=== PATIENT | male | born 1970 | race Caucasian/White ===

== ENCOUNTER 2023-07-29 08:12 | Outpatient (OUT) | payer OTHER, SELFPAY ==
[2023-07-29 09:55] LABS: Creatinine Urine Random 121.53 mg/dL (20.00-300.00); Microalbum Creatinine Ratio Ur 10.6 mg/g (0.0-29.9); Microalbumin Urine Random <1.3 mg/dL (<=30.0)
[2023-07-29 10:22] LABS: Albumin Level 4.1 g/dL (3.4-5.0); BUN Creatinine Ratio 16.8; Calcium 8.5 mg/dL (8.5-10.1); Chloride 102 mmol/L (98-107); Chol HDL Ratio 3.9; Cholesterol 187 mg/dL (<=200); Estimated GFR (African America >60 (>=60); Estimated GFR (Non-African Ame >60 (>=60); Glucose 126 mg/dL (74-106); HDL Cholesterol 48 mg/dL (40-60); Phosphorus 3.3 mg/dL (2.6-4.7); Sodium 137 mmol/L (136-145); Triglycerides 165 mg/dL (<=150)
== END 2023-07-29 08:13 | disposition home or self-care (01) ==
LOC: LAB 07-30 08:12
PROVIDERS: PCP Nurse Practitioner Family; Visit Provider Internal Medicine
DX: E11.65 Type 2 diabetes mellitus with hyperglycemia (principal); E66.9 Obesity, unspecified; I10 Essential (primary) hypertension
CPT/HCPCS: 36415; 80061; 80069; 82043; 82306; 82570

== ENCOUNTER 2025-01-11 17:52 | Emergency (ER) | payer OTHER, SELFPAY ==
--- OUTSIDE RECORDS SUMMARY | 2020-10-16 20:00 | XMS_ITS | Continuity of Care Document ---
Author Organization [facility] Address [address] [place] [address] [place] [address] Phone Care Team Providers Care Business Operations Specialist Name Role Phone Tash Mullen DO Unavailable Unavailable Procedures Procedure Date OBSERVATION CARE DISCHARGE INITIAL OBSERVATION CARE Advance Directives Directive Yes / No Effective Date File Name No Information Encounters Encounter Description Practice Location Reason(s) For Visit Diagnoses Date Provider Providers Copied on Encounter OBSERVATION CARE DISCHARGE [facility], [address] [place] [address], [id number], tel:[phone] [facility] OP No Information Sebas Dela Cruz . [address] [place], [place], [id number], [place]. tel:[phone] Referring Provider: Tash Mullen DO, [address] [place] [address], [id number]. tel:[phone] INITIAL OBSERVATION CARE [facility], [address] [place] [address], [id number], tel:[phone] [facility] OP No Information Eyal Douglass [address], [place], [id number], [place]. tel:[phone] Referring Provider: Chapincito Birch, [facility] [place], [address]. tel:[phone] Family History Family Member Type Diagnosis Age At Onset No Information Payers Payer name Insurance type Covered democrat ID Authoriza tion(s) [employer] Choice And Gold Choice 16 [id number] Medicaid [id number] Social History Type Description Quantity Date Captured Comments Sex Male Smoking Status No Information Chief Complaint And Reason For Visit No Information Reason For Referral Reason For Referral No Information History Of Present Illness Encounter Date Complaint History Of Prese nt Illness No Information Functional Status Date Functional Assessmen t No Information Instructions Date Instruction Additional Infor mation No Information Assessments Type Assessment Date No Information Patient Care Teams Name Effective Dates (start - stop) Status Members No Information
--- OUTSIDE RECORDS SUMMARY | 2024-12-26 06:04 | XMS_ITS ---
Author Organization [facility] in [place] Address [address] [place] [address] Care Team Providers Care Crucible Furnace Tender Name Role Phone Marsha Monahan Primary Care Provider REASON FOR VISIT yearly appointment Encounters Encounter Location Date Provider Diagnosis [facility] [address] [place] [address] 12/26/2024 Marsha Monahan Plan Of Treatment No Information Progress Notes * Chris HUSSEIN GDOB:1970 (54 yo M)Acc No.[id number]:12/26/2024 Patient: Justin ROJASChris :1970 A ge:54 Y S ex:Male Address:[address] [place] [address] * true * Date: Generated for Abril galeas/Jennifer/eTransmitting on: 0 01/11/2025 05:57 PM EDT
--- OUTSIDE RECORDS SUMMARY | 2024-12-28 05:30 | XMS_ITS ---
Author Organization [facility] in [place] Address [address] [place] [address] Care Team Providers Care Systems Analyst Name Role Phone Marsha Monahan Primary Care Provider Allergies No Known Allergies REASON FOR VISIT Presents to office alone for yearly check up Medications Medication SIG (Take, Route, Frequency, Duration) Notes Start Date End Date Status Lisinopril 10 MG 1 tablet Orally Once a day for 90 days 11/27/2022 Active Vitamin D3 50 MCG (1999) 1 tablet Ora lly Once a day for 90 days 12/22/2023 Not-Taking NexIUM 40 MG 1 capsule Orally Once a day for 90 days Active Sertraline HCl 50 MG TAKE 1 TABLET BY MOUTH EVERY DAY for 90 days Active hydroCHLOROthiazide 25 MG 1 tablet in morning Orally Once a day for 90 days Active Albendazole 200 MG 2 tablets Orally daily for 3 days 12/29/2024 Active Jardiance 10 MG 1 tablet Orally Once a day for 30 day(s) Active Social History Tobacco Use: Social History Observation Description Date Details (start date - stop date) Current Smoker NA - NA Tobacco Use/Smoking Question Answer Notes Patient is a nonsmoker Tobacco Control (Standard) Question Answer Notes Tobacco use: Current smoker How often do you smoke cigarettes? Every day AUDIT-C (Standard) Question Answer Notes Did you have a drink contain ing alcohol in the past year? Yes How often did you have six o r more drinks on one occasion in the past year? Less than monthly (1 point) How many drinks did you have on a typical day when you were drinking in the past year? 3 or 4 drinks (1 point) How often did you have a dri nk containing alcohol in the past year? 2 to 3 times a week (3 points) Points 5 Interpretation Positive Problems Problem Type SNOMED Code ICD Code Onset Dates Problem Status W/U Status Risk Notes Problem HTN (hypertens ion) (I10) Active confirmed Problem Gastroesophageal reflux disease (289753257) GERD (gastroeso phageal reflux disease) (K21.9) Active confirmed Vital Signs Blood pressure systolic 110 mm Hg 12/29/19 25 Blood pressure diastolic 70 mm Hg 025 Height 65 in 12/28/2024 Weight 194.4 lbs 12/28/2024 BMI 32.35 kg/m2 12/28/2024 Encounters Encounter Location Date Provider Diagnosis [facility] [address] [place] [address] 12/28/2024 Marsha Monahan Depression F32.A ; Wellness examination Z00.00 ; HTN (hypertension) I10 ; GERD (gastroesophageal reflux disease) K21.9 and Abdominal bloating R14.0 Assessments Encounter Date Diagnosis (ICD Code) Assessment Notes Treatment Notes Treatment Clinical Notes Section Notes 12/28/2024 Depression (ICD-10 - F32.A) increase medication dose discussed counseling discussed substance use adding to issue 12/28/2024 Wellness examination (ICD-10 - Z00.00) ROS done exam done refusing labs, cologuard at this time discussed substance use 12/28/2024 HTN (hypertension) (ICD-10 - I10) BP good, continue meds 12/28/2024 GERD (gastroesophagea l reflux disease) (ICD-10 - K21.9) work on diet 12/28/2024 Abdominal bloating (ICD-10 - R14.0) advised alcohol cessation work on diet requesting anti parasitic discussed GI referral Plan Of Treatment Medication Medication Name Sig Start Date Stop Date Notes Lisinopril 10 MG 1 tablet Orally Once a day for 90 days 11/27/2022 NexIUM 40 MG 1 capsule Orally Onc e a day for 90 days Sertraline HCl 50 MG TAKE 1 TABLET BY MO UT EVERY DAY for 90 days hydroCHLOROthiazide 25 MG 1 tablet in th e morning Orally Once a day for 90 days Albendazole 200 MG 2 tablets Orally zeb ly for 3 days 12/29/2024 Treatment Notes Assessment Notes Depression increase medication dose discussed counseling discussed substance use adding to issue Wellness examination ROS done exam done refusing labs, cologuard at this time discussed substance use HTN (hypertension) BP good, continue me ds GERD (gastroesophageal reflux disease) w ork on diet Abdominal bloating advised alcohol cessation work on diet requesting anti parasitic discussed GI referral Next Appt Details Follow Up: 1 Year,prn, Edenilson n: Progress Notes * Chris HUSSEIN GDOB:1970 (54 yo M)Acc No.[id number]:12/28/2024 Progress Note Patient: Chris SUTTON Provider: Bia Monahan ([facility]), SOLUTION ENGINEER :1970 A ge:54 Y S ex:Male Date:12/28/2024 Address:[address] [place] [address] [place], [id number] Check In:08:53 AM ESTCheck O ut:09:29 AM EST Subjective: * Chief Complaints: * 1 . Presents to office alone for yearly check up. * HPI: G eneral: worried about parasites bloating, fatigue weed and alcohol dont leave house talk to family was on opiates in past, first prescribed last A1C good. D epression Screening: PHQ-9 L ittle interest or pleasure in doing things?Nearly every day F eeling down, depressed, or hopeless S everal days T rouble falling or staying asleep, or sleeping too much S everal days F eeling tired or having little energy M ore than half the days P oor appetite or overeating S everal days F eeling bad about yourself or that you are a failure, or have let yourself or your family down S everal days T rouble concentrating on things, such as reading the newspaper or watching television N ot at all M oving or speaking so slowly that other people could have noticed; or the opposite, being so fidgety or restless that you have been moving around a lot more than usual N ot at all T houghts that you would be better off or of hurting yourself in some way N ot at all T otal Score 9 I nterpretation M ild Depression * ROS: G eneral/Constitutional: Chronic fatigue a dmits. D epression s ome , denies SI. F ever d enies. H eadache d enies. W eight loss d enies. ? O phthalmologic: Discharge d enies. E ye Pain d enies. I tching and redness d enies. E NT: Nasal discharge d enies. N prudence congestion d enies.?Sore throat d enies. C ardiovascular: Chest tightness/ heavy pressure d enies. R apid heart rate d enies. S welling of extremities d enies. C hest pain d enies. ? R espiratory: Productive cough d enies. C hest pain d enies. C ough d enies. S hortness of breath d enies. W heezing d enies. ? G astrointestinal: Bloating a dmits. A bdominal pain d enies. C onstipation d enies. D ecreased appetite d enies. D iarrhea d enies. N ausea d enies. V omiting d enies. G enitourinary: Urinary incontinence d enies. P ainful urination d enies. M usculoskeletal: Arthralgias/joint pain A dmits. B ack pain d enies. N farhana pain d enies. M uscle aches d enies. S kin: Rash d enies. S kin lesion(s) d enies. ? * Active Problem List M79.641 Pain in right hand Modified On:10/25/2022 Status:confirmed Z00.00 Wellness examination Modified On:10/25/2022U Status:confirmed Z86.19 H/O hepatitis Modified On:10/25/2022U Status:confirmed E66.3 Overweight Modified On:10/25/2022U Status:confirmed E11.9 Diabetes mellitus, t ype 2 Modified On:10/25/2022U Status:confirmed N50.9 Scrotal mass Modified On:10/25/2022U Status:confirmed R73.9 Hyperglycemia Modified On:10/25/2022U Status:confirmed G25.81 Restless leg syndrom e Modified On:10/25/2022U Status:confirmed M75.102 Left rotator cuff te ar Modified On:10/25/2022 Status:confirmed Z02.89 Medication managemen t contract agreement Modified On:10/25/2022 Status:confirmed B35.1 Tinea unguium Modified On:10/25/2022 Status:confirmed L02.92 Boils Modified On:10/25/2022 Status:confirmed Z90.89 Acquired absence of other organs Modified On:10/25/2022 Status:confirmed T14.90XA Injury, other and un specified, unspecified site Modified On:10/25/2022 Status:confirmed K21.9 Gastro-esophageal re flux disease Modified On:10/25/2022 Status:confirmed K92.1 Melanotic stools Modified On:10/25/2022 Status:confirmed K92.1 Blood in stool Modified On:10/25/2022 Status:confirmed K58.9 Irritable bowel synd jim (IBS) Modified On:10/25/2022 Status:confirmed E55.9 Vitamin D deficiency Modified On:07/30/2023 Status:confirmed F12.10 Marijuana abuse, con tinuous Modified On:12/22/2023 Status:confirmed F10.10 Alcohol abuse Modified On:12/22/2023 Status:confirmed I10 HTN (hypertension) Modified On:12/29/2024 Status:confirmed K21.9 GERD (gastroesophage al reflux disease) Modified On:12/29/2024 Status:confirmed * Medical History: P ain in right hand, Wellness examination, H/O hepatitis, Overweight, Diabetes mellitus, type 2, Scrotal mass, Hyperglycemia, Restless leg syndrome, Left rotator cuff tear, Medication management contract agreement, Tinea unguium, Boils, Acquired absence of other organs, Elevated blood pressure reading without diagnosis of hypertension, Injury, other and unspecified, unspecified site, Gastro-esophageal reflux disease, Melanotic stools, Blood in stool, Irritable bowel syndrome (IBS). * Surgical History: r t shoulder scope 12/12/22. * Family History: F ather: , diagnosed with Unspecified heart disease. M other: alive. mom- COPD. * Social History: T obacco Use: T obacco Control (Standard) T obacco use: C urrent smoker H ow often do you smoke cigarettes? E very day Tobacco Use/Smoking P atient is a n onsmoker D rug/Alcohol: A JHON-C (Standard) D id you have a drink containing alcohol in the past year? Y es H ow often did you have six or more drinks on one occasion in the past year? L ess than monthly (1 point) H ow many drinks did you have on a typical day when you were drinking in the past year? 3 or 4 drinks (1 point) H ow often did you have a drink containing alcohol in the past year? 2 to 3 times a week (3 points) P oints 5 I nterpretation P ositive * Medications: T aking hydroCHLOROthiazide 25 MG Tablet 1 tablet in the morning Orally Once a day , Taking Jardiance(Empagliflozin) 10 MG Tablet 1 tablet Orally Once a day , Taking Lisinopril 10 MG Tablet 1 tablet Orally Once a day , Taking NexIUM(Esomeprazole Magnesium) 40 MG Capsule Delayed Release 1 capsule Orally Once a day , Taking Sertraline HCl 25 MG Tablet TAKE 1 TABLET BY MOUTH EVERY DAY , Not-Taking/PRN Vitamin D3 50 MCG (1999 UT) Tablet 1 tablet Orally Once a day , Medication List reviewed and reconciled with the patient * Allergies: N .K.D.A. Objective: * Vitals: W t:194.4lbs, Ht: 65 in, BP:110/70mm Hg, BMI:32.35Index, Ht-cm: 165.1 cm, Wt-k.18 kg. * Examination: G eneral Examinations: GENERAL APPEARANCE: a lert and oriented, in no acute distress, obese. EYES: c onjunctiva normal, sclera non-icteric. NOSE: n ormal external appearance. LUNGS: c lear to auscultation bilaterally. CARDIO: r egular rate and rhythm, S1, S2 normal, no murmurs, no edema. ABDOMEN: s oft, nontender. MUSCULOSKELETAL: G ait and station normal. SKIN: w arm and dry. Assessment: * Assessment: 1. W ellness examination - Z00.00 (Primary) 2 . D epression - F32.A ? 3 . H TN (hypertension) - I10 4 . G ERD (gastroesophageal reflux disease) - K21.9 5 . A bdominal bloating - R14.0 Plan: * Treatment: 2. D epression Refill Sertraline HCl Tablet, 50 MG, TAKE 1 TABLET BY MOUTH EVERY DAY, 90 days, 90 Tablet, Refills 3. Notes: increase medication dose discussed counseling discussed substance use adding to issue 3. H TN (hypertension) Refill hydroCHLOROthiazide Tablet, 25 MG, 1 tablet in the morning, Orally, Once a day, 90 days, 90 Tablet, Refills 3; R efill Lisinopril Tablet, 10 MG, 1 tablet, Orally, Once a day, 90 days, 90 Tablet, Refills 3. Notes: BP good, continue meds 4. G ERD (gastroesophageal reflux disease) Refill NexIUM Capsule Delayed Release, 40 MG, 1 capsule, Orally, Once a day, 90 days, 90 Capsule, Refills 3. Notes: work on diet 5. A bdominal bloating Start Albendazole Tablet, 200 MG, 2 tablets, Orally, daily, 3 days, 6 Tablet, Refills 0. Notes: advised alcohol cessation work on diet requesting anti parasitic discussed GI referral * Preventive Medicine: Screenings/Counseling: B UT ACTION PLAN Above Normal BMI Follow-up D ietary management education, guidance, and counseling See treatment section of progress note for complete details of management plan. T OBACCO ACTION PLAN Patient counselled on the dangers of tobacco use and urged to quit. . * Follow Up: 1 Year,prn * * Electronically signed by Laurence Monahan NP, INFORMATICA MDM [email or web address].[email or web address] [id number] on 12/30/2024 at 08:33 AM EDT Sign off status: Completed Visit Status: C HK (Check Out) true * Provider: Bia Monahan ([facility]), SOLUTION ENGINEER Date: 0 12/28/2024 Generated for Abril galeas/Jennifer/Radha on: 01/11/2025 05:57 PM EDT History and Physical Notes * HPI (History of Present Illness) Category Sub-Category Detail Notes Category Not es Depression Screening PHQ-9 Little inte rest or pleasure in doing things: Nearly every day Feeling down, depressed, or hopeless: Se veral days Trouble falling or staying asleep, or sl eeping too much: Several days Feeling tired or having little energy: M ore than half the days Poor appetite or overeating: Several day s Feeling bad about yourself o r that you are a failure, or have let yourself or your family down: Several days Trouble concentrating on thi ngs, such as reading the newspaper or watching television: Not at all Moving or speaking so slowly that other people could have noticed; or the opposite, being so fidgety or restless that you have been moving around a lot more than usual: Not at all Thoughts that you would be b kyle off or of hurting yourself in some way: Not at all Total Score: 9 Interpretation: Mild Depression General worried about parasites bloating, fatigue weed and alcohol dont leave house talk to family was on opiates in past, first prescribed last A1C good Examination Category Sub-Category Detail Notes Category Not es General Examinations GENERAL APPEARANCE: alert a nd oriented, in no acute distress, obese EYES: conjunctiva normal, sclera non-icteric EARS: NOSE: normal external appe arance THROAT: CARDIO: regular rate and rhy thm, S1, S2 normal, no murmurs, no edema LUNGS: clear to auscultatio n bilaterally ABDOMEN: soft, nontender SKIN: warm and dry BACK: MUSCULOSKELETAL: Gait and station nor mal LYMPH NODES:
--- OUTSIDE RECORDS SUMMARY | 2025-01-10 09:21 | XMS_ITS ---
Author Organization [facility] in [place] Address [address] [place] [address] Care Team Providers Care [facility] Representative Name Role Phone Marsha Monahan Primary Care Provider REASON FOR VISIT BP Medications Encounters Encounter Location Date Provider Diagnosis [facility] [address] [place] [address] 01/10/2025 Marsha Monahan Plan Of Treatment No Information Progress Notes * Chris HUSSEIN GDOB:1970 (54 yo M)Acc No.[id number]:01/10/2025 Patient: Justin ROJASChris :1970 A ge:54 Y S ex:Male Address:[address] [place] [id number] * true * Date: Generated for Abril galeas/Jennifer/eTransmitting on: 0 01/11/2025 05:58 PM EDT
[2025-01-11] VITALS (26 sets, daily range): BP systolic 108–122; BP diastolic 79–93; PULSE 65–118; TEMP 36.4; O2SAT 96–100; BMI 31.1
--- OUTSIDE RECORDS SUMMARY | 2025-01-11 17:57 | XMS_ITS | Encounter Summary ---
Author Organization [facility] Address [address] [place] [address] Care Team Providers Care Commercial Lines Insurance Agent Name Role Phone Marsha Monahan MD Unavailable [phone] Nathaniel Allen MD Primary Care Provider [phone] Encounter Details Date Type Department Care Team (Late st Contact Info) Description 12/26/2022 Abstract [facility] [address] [facility] [address] [place] [address] Daniel Wheeler PA [address] [facility] [address] [place] [address] Social History Tobacco Use Types Packs/Day Years Used Date Smoking Tobacco: Never Tobacco Cessation:Counseling Given: Not Answered Alcohol Use Standard Drinks/Week Comments Not Asked 0 (1 standard drink = 0.6 oz pure alcohol) caffeine intake: 3-4 cups per day. Sex and Gender Information Value Date Recorded Sex Assigned at Not on file Legal Sex Male 6:59 PM EDT Gender Identity Not on file Sexual Orientation Not on file documented as of this encounter Plan of Treatment Upcoming Encounters Date Type Department Care Team (Late st Contact Info) Description 03/01/2025 9:00 AM EDT Office Visit [facility] [address] [place] [address] Constantino Dhaliwal MD [address] [place] [address] documented as of this encounter Visit Diagnoses Not on filedocumented in this encounter Care Teams Commercial Lines Insurance Agent Relationship Specialty Start Date End Date Nathaniel Allen MD [address] [place] [address] PCP - General Family Medicine 12/26/22 Marsha Monahan MD [address] [place] [address] Referring Physician Family Medicine 12/26/22 documented as of this encounter
--- OUTSIDE RECORDS SUMMARY | 2025-01-11 17:57 | XMS_ITS | Clinical Summary ---
Author Organization [facility] Address [address] [place] [address] Care Team Providers Care Civil Engineer'S Aide Name Role Phone Unavailable Primary Care Provider Unavailabl e Allergies No known active allergies Medications oxyCODONE 30 mg tab ER 12hr Take 30 mg by mouth. Active gabapentin (NEURONTIN) 800 mg tablet Take 800 mg by mouth three times daily. Active baclofen (LIORESAL) 10 mg tablet Take 10 mg by mouth four times daily. Active doxepin capsule 75 mg Take 75 mg by mouth daily at bedtime. Active esomeprazole (NEXIUM) 40 mg capsule Take 40 mg by mouth twice daily before meals. Active rOPINIRole (REQUIP) 2 mg tablet Take 2 mg by mouth daily at bedtime. Active topiramate (TOPAMAX) 50 mg tablet Take 50 mg by mouth three times daily. Active Social History Tobacco Use Types Packs/Day Years Used Date Smoking Tobacco: Never Smokeless Tobacco: Never Area Deprivation Index Answer Date Perfecto rded National Score (1-100), lower number is lower ri sk Not on file 06/26/2020 State Score (1-10), lower number is lower risk N ot on file 06/26/2020 Data from: https://www.neighborhoodatlas.medicine.[facility].edu/. Last address used for calculation Not on file 06/26/2020 Sex and Gender Information Value Date Recorded Sex Assigned at Not on file Legal Sex Male 9:48 AM EDT Gender Identity Not on file Sexual Orientation Not on file Last Filed Vital Signs Vital Sign Reading Time Taken Comments Blood Pressure 137/105 06/22/2019 11:15 AM EST Pulse 108 06/22/2019 11:15 AM EST Temperature 36.8 C (98.2 F) 05/06/2019 8:08 AM EDT Respiratory Rate - - Oxygen Saturation 97% 05/06/2019 8:08 AM EDT Inhaled Oxygen Concentration - - Weight 104.3 kg (230 lb) 06/22/2019 11:15 AM EST Height 165.1 cm (5' 5 ) 06/22/2019 11:15 AM EST Body Mass Index 38.27 06/22/2019 11:15 AM EST Plan of Treatment Health Maintenance Due Date Last Done Comments Anxiety Screening 1986 Depression Screening 1986 HIV Screening 1986 Hepatitis C Screening 1986 DTaP,Tdap,Td Vaccine (1 - Tdap) 12/20/1987 Hepatitis B Vaccine (1 of 3 - 19+ 3-dose series) 12/19 Lipid Screening 12/20/2003 CT Colonography 2013 Cologuard (FIT-DNA) 2013 Colonoscopy 2013 Colorectal Cancer Screening 2013 Diabetes Screening 2013 Fecal Occult Blood 2013 Prostate Cancer Screening Discussion 2013 Sigmoidoscopy 2013 Pneumococcal Vaccine: 50+ (1 of 1 - PCV) 2018 Shingrix Vaccine (1 of 2) 2018 Covid-19 Vaccine ( - 2023- season) 2024 Influenza Vaccine (Season Ended) [address] [place] [address] MEDICARE
--- OUTSIDE RECORDS SUMMARY | 2025-01-11 17:57 | XMS_ITS | Patient Health Record ---
Author Organization Telehealth Visit Address [address] [place] [phone] Care Team Providers Care Internal Grinder Set Up Operator Name Role Phone RON IVORY Primary Care Provider Luda Huizar Unavailable [phone] Reason For Referral No Information Medications Medication SIG (Take, Route, Frequency, Duration) Notes Start Date End Date Status Sertraline HCl Activ e Pantoprazole Sodium 40 MG 1 tablet on em pty stomach, 30 minutes before a meal Orally twice a day for 30 days Active Losartan Potassium A ctive Social History Tobacco Use: Social History Observation Description Date Details (start date - stop date) Never Smoker NA - NA Alcohol Screen Question Answer Notes Did you have a drink contain ing alcohol in the past year? Yes How often did you have a dri nk containing alcohol in the past year? Monthly or less (1 point) How many drinks did you have on a typical day when you were drinking in the past year? 1 or 2 drinks (0 point) How often did you have 6 or more drinks on one occasion in the past year? Never (0 point) Points 1 Interpretation Negative Smoking Question Answer Notes Status nonsmoker Additional Findings: Tobacco Non-User Current no n-smoker Section Notes: single Problems Problem Type SNOMED Code ICD Code Onset Dates Problem Status W/U Status Risk Notes Problem Gastric polyps (K31.7) Active confirmed Problem 76734014 Diarrhea, unspecified type (R19.7) Active confirmed Problem 80423528 Non-intractable vomiting with nausea, unspecified vomiting type (R11.2) Active confirmed Plan Of Treatment Pending Test Test Name Order Date Gastric Emptying Study Solid 12/05/2020 Insurance Providers Payer Name Payer Address Payer Phone Subscriber Number Group Number Insured Name Patient Relationship to Insured Coverage Start Date Coverage End Date [employer] Medicare PPO [address] [address] MARYJANE Son [phone] [id number] Chris Hussein Self - patient is the insured Medical (General) History Medical History History ICD Code acid reflux hypertension anxiety depression Surgical History Surgery Date(Month/Year) colonoscopy cholecystectomy skin graph
--- OUTSIDE RECORDS SUMMARY | 2025-01-11 17:57 | XMS_ITS | Patient Health Record ---
Author Organization [facility] [place] Address [address] [place] [address] Care Team Providers Care Plumbing Manager Name Role Phone Marsha Monahan Primary Care Provider Allergies No Known Allergies Reason For Referral No Information Medications Medication [...] Question Answer Notes Patient is a nonsmoker Alcohol Screen (Audit-C) Question Answer Notes Did you have a drink contain ing alcohol in the past year? Yes How often did you have 6 or more drinks on one occasion in the past year? Monthly or less (1 point) How many drinks did you have on a typical day when you were drinking in the past year? 1 or 2 drinks (0 point) How often did you have a dri nk containing alcohol in the past year? 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) Active confirmed Problem Gastroesophageal reflux disease (655101961) GERD (gastroesophagea l reflux disease) (K21.9) Active confirmed Problem Hypertension (36431047) HTN (hypertension) (I10) Active confirmed Problem Restless legs syndrome (36555371) Restless leg syndrome (G25.81) Active confirmed Problem Hyperglycemia (15455912) Hyperglycemia (R73.9) Active confirmed Problem Vitamin D deficiency (80554803) Vitamin D deficiency (E55.9) Active confirmed Problem Alcohol abuse (10525901) Alcohol abuse (F10.10) Active confirmed Problem Tinea unguium (301480742) Tinea unguium (B35.1) Active confirmed Problem Blood in stool (229684385) Blood in stool (K92.1) Active confirmed Problem 676805206 Boils (L02.92) Active confirmed Problem Tear of left rotator cuff (27012155414187815) Left rotator cuff tear (M75.102) Active confirmed Problem Scrotal mass (79554665) Scrotal mass (N50.9) Active confirmed Problem Annual wellness visit (332808679393901) Wellness examination (Z00.00) Active confirmed Problem Gastro-esophageal reflux disease (779741076) Gastro-esophagea l reflux disease (K21.9) Active confirmed Problem Hematochezia (372353338) Melanotic stools (K92.1) Active confirmed Problem History of infectious disease (509624426) H/O hepatitis (Z86.19) Active confirmed Problem Irritable bowel syndrome (50842081) Irritable bowel syndrome (IBS) (K58.9) Active confirmed Problem Diabetes mellitus type 2 (64388271) Diabetes mellitus, type 2 (E11.9) Active confirmed Problem Cannabis abuse (99193234) Marijuana abuse, continuous (F12.10) Active confirmed Problem Medication management contract agreement (Z02.89) Active confirmed Problem 495061479 Injury, other and unspecified, unspecified site (T14.90XA) Active confirmed Vital Signs Blood pressure diastolic 70 mm Hg 12/28/2024 Height 65 in 12/28/2024 Blood pressure systolic 110 mm Hg 12/28/2024 Weight 194.4 lbs 12/28/2024 BMI 32.35 kg/m2 12/28/2024 Encounters Encounter Location Date Provider Diagnosis [address] [address] 10/03/2024 Marsha Monahan [address] [address] 12/26/2024 Marsha Monahan [address] [address] 01/10/2025 Marsha Monahan [address] [address] 12/28/2024 Marsha Monahan Depression F32.A ; Wellness [...] parasitic discussed GI referral Plan Of Treatment Pending Test Test Name Order Date MRI SHOULDER RT WO CON 10/27/2022 Insurance Providers Payer Name Payer Address Payer Phone Subscriber Number Group Number Insured Name Patient Relationship to Insured Coverage Start Date Coverage End Date [employer] [address] LUDY [place]OM[place] [phone] [id number] Chris Hussein Self - patient is the insured Medical (General) History Medical History History ICD Code Pain in right hand M79.641 Wellness examination Z00.00 H/O hepatitis Z86.19 Overweight E66.3 Diabetes mellitus, type 2 E11.9 Scrotal mass N50.9 Hyperglycemia R73.9 Restless leg syndrome G25.81 Left rotator cuff tear M75.102 Medication management contract agreement Z02.89 Tinea unguium B35.1 Boils L02.92 Acquired absence of other organs Z90.89 Elevated blood pressure reading without diagnosis of hypertension R03.0 Injury, other and unspecified, unspecifi ed site T14.90XA Gastro-esophageal reflux disease K21.9 Melanotic stools K92.1 Blood in stool K92.1 Irritable bowel syndrome (IBS) K58.9 Surgical History Surgery Date(Month/Year) rt shoulder scope 12/12/22
--- OUTSIDE RECORDS SUMMARY | 2025-01-11 17:57 | XMS_ITS | Clinical Summary ---
Author Organization [facility] Healthcare Address [address] [place] [address] Care Team Providers Care Groundskeeping Maintenance Worker Name Role Phone Marsha Monahan MD Unavailable [phone] Nathaniel Allen MD Primary Care Provider [phone] Allergies No known active allergies Medications Cannabinoids (medical cannabis) Medical Marijuana Edibles Active diclofenac (Voltaren) 75 MG EC tablet Oral for 30 Days Active sertraline (Zoloft) 50 MG tablet 1 (one) time each day at the same time. Active omeprazole (PriLOSEC) [address] capsule 1 capsule 1 (one) time each day at the same time. Active cholecalciferol (Vitamin D-3) 50 MCG (1999) tablet Take 1 tablet by mouth Daily 4 Active esomeprazole (NexIUM) [address] capsule Take 40 mg by mouth 1 (one) time each day at the same time Active losartan-hydroCHL OROthiazide (Hyzaar) 100-25 MG tablet Take 1 tablet by mouth Daily Active metFORMIN (Glucophage) 500 MG tabletIndications :Type 2 diabetes mellitus with hyperglycemia, without long-term current use of insulin (HCC) Take 1 tablet (500 mg) by mouth in the morning and 1 tablet (500 mg) in the evening. Take with meals. 180 tablet 1 5 02/27/20 25 Active empagliflozin (Jardiance) 10 MGIndications:Typ e 2 diabetes mellitus with hyperglycemia, without long-term current use of insulin (HCC) Take 1 tablet (10 mg) by mouth Daily 90 tablet 1 5 02/27/20 25 Active hydroCHLOROthiazi de (HYDRODiuril) 25 MG tabletIndications :Essential (primary) hypertension TAKE 1 TABLET BY MOUTH EVERY DAY IN THE MORNING 90 tablet 1 5 Active losartan (Cozaar) 100 MG tabletIndications :Essential (primary) hypertension TAKE 1 TABLET BY MOUTH EVERY DAY 90 tablet 1 5 Active Active Problems Problem Noted Date Diagnosed Date Essential (primary) hypertension 07/05/2024 Type 2 diabetes mellitus with hyperglycemia 06/19 Vitamin D deficiency, unspecified 07/05/2024 Right anterior shoulder pain 12/30/2022 History of arthroscopy of right shoulder 023 Internal derangement of right shoulder 3 Encounters Date Type Department Care Team Description 10/13/2024 Refill [facility] [address] [place] [address] Constantino Dhaliwal MD Essential (primary) hypertension from Last 3 Months Family History Medical History Relation Name Comments Heart disease Father Hypertension Mother Diabetes Paternal Grandmother Relation Name Status Comments Father Mother Alive Paternal Grandmother Social History Tobacco Use Types Packs/Day Years Used Date Smoking Tobacco: Never Tobacco Cessation:Counseling Given: Not Answered Alcohol Use Standard Drinks/Week Comments Never 0 (1 standard drink = 0.6 oz pure alcohol) caffeine intake: 3-4 cups per day. Sex and Gender Information Value Date Recorded Sex Assigned at Not on file Legal Sex Male 6:59 PM EDT Gender Identity Not on file Sexual Orientation Not on file Last Filed Vital Signs Vital Sign Reading Time Taken Comments Blood Pressure 120/88 08/30/2024 9:09 AM EST Pulse 80 08/30/2024 9:09 AM EST Temperature - - Respiratory Rate 18 08/30/2024 9:09 AM EST Oxygen Saturation 95% 08/30/2024 9:09 AM EST Inhaled Oxygen Concentration - - Weight 91.2 kg (201 lb) 08/30/2024 9:09 AM EST Height 163.8 cm (5' 4.5 ) 08/30/2024 9:09 AM EST Body Mass Index 33.97 08/30/2024 9:09 AM EST Plan of Treatment Upcoming Encounters Date Type Department Care Team (Late st Contact Info) Description 03/01/2025 9:00 AM EDT Office Visit [facility] [address] [place] [address] Constantino Dhaliwal MD [address] [place] [address] Insurance [employer] Care Teams Groundskeeping Maintenance Worker Relationship Specialty Start Date End Date Nathaniel Allen MD [address] [place] [address] [phone] PCP - General Family Medicine 12/26/22 Marsha Monahan MD [address] [place] [address] [phone] Referring Physician Family Medicine 12/26/22
--- OUTSIDE RECORDS SUMMARY | 2025-01-11 17:57 | XMS_ITS | Encounter Summary ---
Author Organization [facility] Address [address] [place] [address] Care Team Providers Care Stranding Supervisor Name Role Phone Marsha Monahan MD Unavailable [phone] Nathaniel Allen MD Primary Care Provider [phone] Encounter Details Date Type Department Care Team (Late st Contact Info) Description 12/30/2022 Abstract [facility] [address] [place] [phone] Andi Florez, PT [address] [place] [address] Social History Tobacco Use Types Packs/Day Years [...] AM EDT Office Visit [facility] [address] [place] [phone] Constantino Dhaliwal MD [address] [place] [address] documented as of this encounter Visit Diagnoses Not on filedocumented in this encounter Care Teams Stranding Supervisor Relationship Specialty Start Date End Date Nathaniel Allne MD [address] [place] [address] PCP - General Family Medicine 12/26/22 Marsha Monahan MD [address] [place] [address] Referring Physician Family Medicine 12/26/22 documented as of this encounter
--- OUTSIDE RECORDS SUMMARY | 2025-01-11 17:57 | XMS_ITS | Encounter Summary ---
Author Organization [facility] Address [address] [place] [address] Care Team Providers Care Converter Skimmer Name Role Phone Marsha Monahan MD Unavailable [phone] Nathaniel Allen MD Primary Care Provider [phone] Encounter Details Date Type Department Care Team (Late st Contact Info) Description 02/27/2023 Abstract [facility] [address] [facility] [address] [place] [address] Daniel Wheeler PA [address] [facility] [address] [place] [address] Social History Tobacco Use Types Packs/Day Years Used Date Smoking Tobacco: Never Alcohol Use Standard Drinks/Week Comments Never 0 [...] Visit [facility] [address] [place] [address] Constantino Dhaliwal MD [address] [place] [address] documented as of this encounter Visit Diagnoses Not on filedocumented in this encounter Care Teams Converter Skimmer Relationship Specialty [place] [address] [place] [phone] PCP - General Family Medicine 12/26/22 Marsha Monahan MD [address] [place] [address] Referring Physician Family Medicine 12/26/22 documented as of this encounter
--- OUTSIDE RECORDS SUMMARY | 2025-01-11 17:58 | XMS_ITS | Encounter Summary ---
Author Organization [facility] Address [address] [place] [address] Care Team Providers Care Compliance Testing Analyst Name Role Phone Marsha Monahan MD Unavailable [phone] Nathaniel Allen MD Primary Care Provider [phone] Encounter Details Date Type Department Care Team (Late st Contact Info) Description 04/06/2023 Abstract [facility] [address] [facility] [address] [place] [address] Daniel Wheeler PA [address] [facility] [address] [place] [address] Social History Tobacco Use Types Packs/Day Years [...] Visit [facility] [address] [place] [address] Constantino Dhaliwal MD [address] [place] [address] documented as of this encounter Visit Diagnoses Not on filedocumented in this encounter Care Teams Compliance Testing Analyst Relationship Specialty [place] [address] [place] [phone] PCP - General Family Medicine 12/26/22 Marsha Monahan MD [address] [place] [address] Referring Physician Family Medicine 12/26/22 documented as of this encounter
--- NOTE | 2025-01-11 18:06 | ECG_ITS ---
[facility] Test Date: 2025-01-11 Pat Name: LEO PADILLA Department: Room: - Gender: Male Chief Technical Officer: : 1970 Requested By: 0923 Order Number: [id number] Reading MD: MICHEL ALEJO M.D. Measurements Intervals Lovely Rate: 91 P: 46 NJ: 164 QRS: 42 QRSD: 80 T: 57 QT: 354 QTc: 403 Interpretive Statements 1100 Sinus rhythm 9110 normal ECG Compared to ECG 08/31/2020 10:42:22 No significant changes Electronically Signed On 01-11-2025 20:03:19 EDT by MICHEL ALEJO M.D.
--- NOTE | 2025-01-11 18:06 | ED_ITS ---
HPI HPI - General Adult General Chief complaint: Shortness of Breath/Dyspnea Stated complaint: Shortness of Breath Time Seen by Provider: 01/11/25 18:02 Source: patient Mode of arrival: walk-in History of Present Illness HPI narrative: 54-year-old male presents here with a chief complaint of shortness of breath. Patient states he laid down to take a nap and woke up short of breath. He states it happens to him when he gets overheated. He did have a change in his medications yesterday by his primary care physician and his blood pressure medications were changed. He is uncertain of the medications or how to take them. He states he was told to take 1 or 2 what he felt like taking but did not understand the instructions. Patient does appear as if he is hyperventilating but when distracted he is able to speak full sentences his vital signs are stable he is not currently tachycardic or febrile. Related Data Home Medications ?Medication ?Instructions ?Recorded ?Confirmed empagliflozin 10 mg tablet 10 mg PO DAILY 01/11/25 (Jardiance) esomeprazole magnesium 40 mg 40 mg PO DAILY 01/11/25 0 01/11/25 capsule,delayed release hydrochlorothiazide 25 mg tablet 25 mg PO DAILY 01/11/25 lisinopril 10 mg tablet 10 mg PO DAILY 01/11/2512/19 losartan 100 mg tablet 100 mg PO DAILY 01/11/25 metformin 500 mg tablet 500 mg PO BID 01/11/2501/11 sertraline 50 mg tablet 50 mg PO DAILY 01/11/2512/19 Allergies Allergy/AdvReac Type Severity Reaction Status Date / Time No Known Drug Allergies Allergy Verified 01/11/25 17:58 Review of Systems ROS Status of ROS 10 or more systems reviewed and unremark able except as noted in history and below [facility] Medical History (Updated 01/11/25 @ 20:57 by Oneyda Nagel) Depression ?F32.A - Depression, unspecified (ICD-10) HTN (hypertension) ?I10 - Essential (primary) hypertension (ICD-10) Diabetes ?E11.9 - Type 2 diabetes mellitus without complications (ICD-10) Electrocution and nonfatal effects of electric current ?T75.4XXA - Electrocution, initial encounter (ICD-10) Social History Little interest or pleasure in doing things: not at all Feeling down, depressed, or hopeless: not at all Exam Narrative Exam Narrative: All Systems are negative except as noted/marked.All systems reviewed and otherwise negative Nurses note and vital signs reviewed and patient is not hypoxic. General: The patient appears mildy anxious Patient is resting comfortably on cart. Skin: Warm, dry, no pallor noted. There is no rash noted. Head: Normocephalic, atraumatic Eye: Normal conjunctiva, no drainage, EOMI. PERRL Ears, Nose, Mouth, and Throat: oral mucosa is moist. Nares patent. Mouth without vesicles. Ear canals patent. Tm's without Erythema Cardiovascular: Regular Rate and Rhythm Respiratory: hyperventilating but able to be distracted and speak full sentences no accessory muscle use, lungs are clear to auscultation, no wheezing, rales or rhonchi Back: non-tender, no CVA tenderness bilaterally to percussion. GI: Normal bowel sounds, no tenderness to palpation, no masses appreciated. No rebound, guarding, or rigidity noted. Musculoskeletal: The patient has no evidence of calf tenderness, no pitting edema, symmetrical pulses noted bilaterally Neurological: A&O x4, normal speech Psychiatric: Cooperative Constitutional Vital Signs, click to edit/add: Last Vital Signs Temp 97.6 F 01/11/25 17:58 Pulse 99 H 01/11/25 19:30 Resp 20 01/11/25 19:30 BP 122/81 01/11/25 19:09 Pulse Ox 100 01/11/25 19:30 O2 Del Method Room Air 01/11/25 17:58 Course Vital Signs Vital signs: Vital Signs Temperature 97.6 F 01/11/25 17:58 Pulse Rate 90 01/11/25 17:58 Respiratory Rate 01/11/25 17:58 Blood Pressure 114/93 H 01/11/25 17:58 Pulse Oximetry 96 01/11/25 17:58 Oxygen Delivery Method Room Air 01/11/25 17:58 Temperature 97.6 F 01/11/25 17:58 Pulse Rate 99 H 01/11/25 19:30 Respiratory Rate 20 01/11/25 19:30 Blood Pressure 122/81 01/11/25 19:09 Pulse Oximetry 100 01/11/25 19:30 Oxygen Delivery Method Room Air 01/11/25 17:58 Medical Decision Making MDM Narrative Medical decision making narrative: 54-year-old male presents here with a chief complaint of shortness of breath. Patient states he laid down to take a nap and woke up short of breath. He states it happens to him when he gets overheated. He did have a change in his medications yesterday by his primary care physician and his blood pressure medications were changed. He is uncertain of the medications or how to take them. He states he was told to take 1 or 2 what he felt like taking but did not understand the instructions. Patient does appear as if he is hyperventilating but when distracted he is able to speak full sentences his vital signs are stable he is not currently tachycardic or febrile. Upon arrival to the emergency room IV was established EKG was performed blood work was drawn. Lab work including BC been viewed. Patient does have a elevated BUN and creatinine. He has been given a liter of fluids here. Patient advised he needs to follow-up with primary care physician for his clarification of his new blood pressure medications. He tells me there are 2 doctors giving him blood pressure meds. I told him he needs to have 1 physician caring for the blood pressure only. Patient was hypervenilating upon arriva. He is currently acting and talking fine here. He was given Vistaril and Valium was currently out of Ativan and Xanax. Did explain to the patient that his kidneys BUN and creatinine were elevated and that is why we gave him fluids. He has to follow- up with his primary care physician as discussed. Differential Diagnosis Differential Diagnosis: short of breath, anxiety Medical Records Medical records reviewed: Yes I reviewed the patient's medical records Lab Data Lab results reviewed: Yes I reviewed the patient's lab results Labs: Lab Results 01/11/25 01/11/25 01/11/25 Range/Units 18:26 19:11 19:31 WBC 12.2 H (4.0-11.0) 10^3/uL RBC 5.42 (4.70-6.10) 10^6/uL Hgb 18.1 H (14.0-18.0) g/dL Hct 49.2 (42.0-54.0) % MCV 90.8 (80.0-94.0) fL MCH 33.4 (25.9-34.0) pg MCHC 36.8 H (29.9-35.2) g/dL RDW 12.1 (11.0-15.0) % Plt Count 281 (150-450) 10^3/uL MPV 8.9 L (9.5-13.5) fL Neut % (Auto) 62.6 (43.0-75.0) % Lymph % (Auto) 26.6 (20.5-60.0) % Ventura % (Auto) 9.4 (1.7-12.0) % Eos % (Auto) 0.4 L (0.9-7.0) % Baso % (Auto) 0.7 (0.2-2.0) % Neut # (Auto) 7.7 H (1.4-6.5) 10^3/uL Lymph # (Auto) 3.3 (1.2-3.8) 10^3/uL Ventura # (Auto) 1.2 H (0.3-0.8) 10^3/uL Eos # (Auto) 0.1 (0.0-0.7) 10^3/uL Baso # (Auto) 0.1 (0.0-0.1) 10^3/uL Abs Immat Gran (auto) 0.04 H (0.00-0.03) 10^3/uL Imm/Tot Granulo (auto) 0.3 (0.0-0.5) % PT 10.9 (9.0-11.6) sec INR 1.03 Sodium 142 (136-145) mmol/L Potassium 3.7 (3.5-5.1) mmol/L Chloride 105 (98-107) mmol/L Carbon Dioxide 17.7 L (21.0-32.0) mmol/L Anion Gap 23.0 BUN 33.0 H (7.0-18.0) mg/dL Creatinine 1.68 H (0.70-1.30) mg/dL Est GFR ( Amer) 52 L (>=60 mL/min/1.73m^2) Est GFR (Non-Af Amer) 42 L (>=60 mL/min/1.73m^2) BUN/Creatinine Ratio 19.6 Glucose 134 H (74-106) mg/dL Calcium 9.3 (8.5-10.1) mg/dL Total Bilirubin 0.9 (0.2-1.0) mg/dL AST 15 (15-37) U/L ALT 21 (16-63) U/L Alkaline Phosphatase 50 (46-116) U/L Troponin I High Sens <4.0 L (4.0-76.1) pg/mL NT-Pro-B Natriuret Pep 34.0 (<=900.0) pg/mL Total Protein 7.8 (6.4-8.2) g/dL Albumin 4.4 (3.4-5.0) g/dL Globulin 3.4 g/dL Albumin/Globulin Ratio 1.3 POC Glucose 246 H (74-106) mg/dL Imaging Data Chest x-ray: Radiologist's impression: ITS Impressions Chest X-Ray 01/11/25 18:06 IMPRESSION: NO ACUTE CARDIOPULMONARY ABNORMALITY. Impression dictated by: Morales Moreno M.D. 01/11/2025 7:07 PM Dictation Location: [employer] Electronically authenticated by: [id number] Y Date: 01/11/2025 19:07 ECG Data Interpretation: 1803 normal sinus rhythm with a rate of 91 bpm MD interval 164 ms QRS duration [address] elevation or depression, no STEMI Discharge Plan Discharge Chief Complaint: Shortness of Breath/Dyspnea Clinical Impression: Stress reaction, Acute kidney injury Patient Disposition: Home, Self-Care Time of Disposition Decision: 21:30 Condition: Good Prescriptions / Home Meds: No Action Jardiance 10 mg tablet 10 mg PO DAILY esomeprazole magnesium 40 mg capsule,delayed release(DR/EC) 40 mg PO DAILY lisinopril 10 mg tablet 10 mg PO DAILY losartan 100 mg tablet 100 mg PO DAILY hydrochlorothiazide 25 mg tablet 25 mg PO DAILY metformin 500 mg tablet 500 mg PO BID sertraline 50 mg tablet 50 mg PO DAILY Print Language: Occitan Instructions: Acute Kidney Injury (DC), Stress (ED) Additional Instructions: call physician in the morning to clarify new blood pressure medications and let them know that your kidney functions were elevated today at BUN of 33 and Creatinine of 1.62. we did hydrate you in the er to help reverse the elevation . Referrals: Ishaan Randhawa MD [Physician, General Surgery] - 1 week MUNIRA CHATMAN [Primary Care Provider, Family Practice] - 1 week
--- NOTE | 2025-01-11 18:06 | XR_ITS ---
The [address] [address] Patient Name: LEO PADILLA MRN: [id number] date: 1970 Sex: M Assigned Patient Location: ER Current Patient Location: ER Accession/Order Number: [id number] Exam Date: 01/11/2025 19:07 Report Date: 01/11/2025 19:07 At the request of: DES ERNANDEZ Procedure: XR chest 2V PA AND LATERAL CHEST: CLINICAL HISTORY: short of breath COMPARISON: None FINDINGS: Unremarkable cardiomediastinal silhouette. Lungs clear. No effusion or pneumothorax. XR/XR chest 2V IMPRESSION: NO ACUTE CARDIOPULMONARY ABNORMALITY. Impression dictated by: Morales Moreno M.D. 01/11/2025 7:07 PM Dictation Location: [place] [address] Electronically authenticated by: [id number] Y Date: 01/11/2025 19:07
[2025-01-11 18:28] LABS: Glucometer 246 mg/dL (74-106)
--- OUTSIDE RECORDS SUMMARY | 2025-01-11 18:29 | XMS_ITS | CCD ---
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 above: Performed By: #### L IPID, CMP #### [facility] [address] [place] [address] Dr. Comfort Sellers Sodium [Moles/Vol] 141 mmol/L Normal 136-145 [facility] Comment on above: Performed By: #### L IPID, CMP #### [facility] [address] [place] [address] Dr. Comfort Sellers Urea nitrogen [Mass/Vol] 15.0 mg/dL Normal 7.0-18.0 [facility] Comment on above: Performed By: #### L IPID, CMP #### [facility] [address] [place] [address] Dr. Comfort Sellers Urea nitrogen/Creatinine [Mass ratio] 17.6 mg/mg Normal [facility] Comment on above: Performed By: #### L IPID, CMP #### [facility] [address] [place] [address] Dr. Comfort Sellers CBC AUTO DIFFon 07-08-2022 BASO # 0.0 103/ul Normal 0.0-0.1 [facility] Comment on above: Performed By: #### C BC #### [facility] [address] [place] [address] Dr. Comfort Sellers Basophils/100 WBC (Bld) 0.2 % Normal 0.2-2.0 [facility] Comment on above: Performed By: #### C BC #### [facility] [address] [place] [address] Dr. Comfort Sellers EO # 0.0 103/ul Normal 0.0-0.7 [facility] Comment on above: Performed By: #### C BC #### [facility] [address] [place] [address] Dr. Comfort Sellers Eosinophils/100 WBC (Bld) 0.0 % Critically low 0.9-7.0 [facility] Comment on above: Performed By: #### C BC #### [facility] [address] [place] [address] Dr. Comfort Sellers Erythrocyte distribution width (RBC) [Ratio] 12.0 % Normal 11.0-15.0 [facility] Comment on above: Performed By: #### C BC #### [facility] [address] [place] [address] Dr. Comfort Sellers Hematocrit (Bld) [Volume fraction] 50.4 % Normal 42.0-54.0 [facility] Comment on above: Performed By: #### C BC #### [facility] [address] [place] [address] Dr. Comfort Sellers Hemoglobin (Bld) [Mass/Vol] 18.0 g/dL Normal 14.0-18.0 [facility] Comment on above: Performed By: #### C BC #### [facility] [address] [place] [address] Dr. Comfort Sellers IG # 0.03 10e3/ul Normal 0.00-0.03 [facility] Comment on above: Performed By: #### C BC #### [facility] [address] [place] [address] Dr. Comfort Sellers IG % 0.3 % Normal 0.0-0.5 [facility] Comment on above: Performed By: #### C BC #### [facility] [address] [place] [address] Dr. Comfort Sellers LYMPH # 0.4 103/ul Critically low 1.2-3.8 [facility] Comment on above: Performed By: #### C BC #### [facility] [address] [place] [address] Dr. Comfort Sellers Lymphocytes/100 WBC (Bld) 4.1 % Critically low 20.5-60.0 [facility] Comment on above: Performed By: #### C BC #### [facility] [address] [place] [address] Dr. Comfort Sellers MANUAL DIFF REQ NO Normal [facility] Comment on above: Performed By: #### C BC #### [facility] [address] [place] [address] Dr. Comfort Sellers MCH (RBC) [Entitic mass] 31.9 pg Normal 25.9-34.0 [facility] Comment on above: Performed By: #### C BC #### [facility] [address] [place] [address] Dr. Comfort Sellers MCHC (RBC) [Mass/Vol] 35.7 g/dL Critically high 29.9-35.2 [facility] Comment on above: Performed By: #### C BC #### [facility] [address] [place] [address] Dr. Comfort Sellers MCV (RBC) [Entitic vol] 89.4 fL Normal 80.0-94.0 [facility] Comment on above: Performed By: #### C BC #### [facility] [address] [address] [address] Comfort Sellers MONO # 0.7 103/ul Normal 0.3-0.8 [facility] Comment on above: Performed By: #### C BC #### [facility] [address] [place] [address] Dr. Comfort Sellers Monocytes/100 WBC (Bld) 7.9 % Normal 1.7-12.0 [facility] Comment on above: Performed By: #### C BC #### [facility] [address] [place] [address] Dr. Comfort Sellers NEUT # 8.0 103/ul Critically high 1.4-6.5 [facility] Comment on above: Performed By: #### C BC #### [facility] [address] [place] [address] Dr. Comfort Sellers Neutrophils/100 WBC (Bld) 87.5 % Critically high 43.0-75.0 [facility] Comment on above: Performed By: #### C BC #### [facility] [address] [place] [address] Dr. Comfort Sellers Platelet mean volume (Bld) [Entitic vol] 8.8 fL Critically low 9.5-13.5 [facility] Comment on above: Performed By: #### C BC #### [facility] [address] [place] [address] Dr. Comfort Sellers PLT 235 103/ul Normal 150-450 [facility] Comment on above: Performed By: #### C BC #### [facility] [address] [place] [address] Dr. Comfort Sellers RBC 5.64 106/ul Normal 4.70-6.10 [facility] Comment on above: Performed By: #### C BC #### [facility] [address] [place] [address] Dr. Comfort Sellers WBC 9.2 103/ul Normal 4.0-11.0 [facility] Comment on above: Performed By: #### C BC #### [facility] [address] [place] [address] Dr. Comfort Sellers Covid-19 PCR ([facility])on 06-20 SARS-CoV-2 (COVID-19) RNA MARIPOSA+probe Ql (Unsp spec) Not detected Normal NOT DETECTED [facility] Comment on above: Result Comment: This test is not yet approved or cleared by the [place] FDA. When there are no FDA-approved or cleared tests available, and other criteria are met, FDA can make tests available under an emergency access mechanism called an Emergency Use Authorization (EUA). The EUA for this test is supported by the [place] of Health and Human Service's (HHS's) declaration that circumstances exist to justify the emergency use of in vitro diagnostics for the detection and/or diagnosis of the virus that causes COVID-19. This EUA will remain in effect (meaning this test can be used) for the duration of the COVID-19 declaration justifying emergency of IVDs, unless it is terminated or revoked by FDA (after which the test may no longer be used). When diagnostic testing is negative, the possibility of a false negative should be considered in the context of a patient's recent exposures and the presence of clinical signs and symptoms consistent with SARS-CoV-2. Performed By: #### C BC #### [facility] [address] [place] [address] Dr. Comfort Sellers INFLUENZA A AND B AGon 07-08 INFLUBNEG SEE BELOW Normal [facility] Comment on above: Result Comment: Nega tive for Flu B protein antigen. Infection due to Flu B cannot be ruled out. Flu B antigen in the sample may be below the detection limit of the test. Performed By: #### C BC #### [facility] [address] [place] [address] Dr. Comfort Sellers INFLUENZA A AG Positive Abnormal NEGATIVE SEE COMMENT [facility] Comment on above: Performed By: #### C BC #### [facility] [address] [place] [address] Dr. Comfort Sellers INFLUENZA B AG Negative Normal NEGATIVE SEE COMMENT [facility] Comment on above: Performed By: #### C BC #### [facility] [address] [place] [address] Dr. Comfort Sellers INFLUPOSH SEE BELOW Normal [facility] Comment on above: Result Comment: NOTE : Live attenuated influenzae vaccine viruses can cause a positive result for a rapid influenza diagnostic test if administered up to 7 days prior to rapid testing. Performed By: #### C BC #### [facility] [address] [place] [address] Dr. Comfort Sellers INTERNAL CONTROLS Within Normal Limits Normal Wi thin Normal Limits [facility] Comment on above: Performed By: #### C BC #### [facility] [address] [place] [address] Dr. Comfort Sellers PROF CHEM 8 (BAS METB)on Anion gap [Moles/Vol] 24.0 mmol/L Normal [facility] Comment on above: Performed By: #### C BC #### [facility] [address] [place] [address] Dr. Comfort Sellers Calcium [Mass/Vol] 9.1 mg/dL Normal 8.5-10.1 [facility] Comment on above: Performed By: #### C BC #### [facility] [address] [place] [address] Dr. Comfort Sellers Chloride [Moles/Vol] 97 mmol/L Critically low 98-107 [facility] Comment on above: Performed By: #### C BC #### [facility] [address] [place] [address] Dr. Comfort Sellers CO2 [Moles/Vol] 20.3 mmol/L Critically low 21.0-32.0 [facility] Comment on above: Performed By: #### C BC #### [facility] [address] [place] [address] Dr. Comfort Sellers Creatinine [Mass/Vol] 1.12 mg/dL Normal 0.70-1.30 [facility] Comment on above: Performed By: #### C BC #### [facility] [address] [address] [address] Comfort Sellers EGFR-AF SURINAMESE >60 Normal >=60 [facility] Comment on above: Performed By: #### C BC #### [facility] [address] [place] [address] Dr. Comfort Sellers EGFR-NON AF SURINAMESE >60 Normal >=60 [facility] Comment on above: Performed By: #### C BC #### [facility] [address] [address] [address] Comfort Sellers Glucose [Mass/Vol] 162 mg/dL Critically high 74-106 [facility] Comment on above: Performed By: #### C BC #### [facility] [address] [place] [address] Dr. Comfort Sellers Potassium [Moles/Vol] 3.3 mmol/L Critically low 3.5-5.1 [facility] Comment on above: Performed By: #### C BC #### [facility] [address] [place] [address] Dr. Comfort Sellers Sodium [Moles/Vol] 138 mmol/L Normal 136-145 [facility] Comment on above: Performed By: #### C BC #### [facility] [address] [place] [address] Dr. Comfort Sellers Urea nitrogen [Mass/Vol] 17.0 mg/dL Normal 7.0-18.0 [facility] Comment on above: Performed By: #### C BC #### [facility] [address] [place] [address] Dr. Comfort Sellers Urea nitrogen/Creatinine [Mass ratio] 15.2 mg/mg Normal [facility] Comment on above: Performed By: #### C BC #### [facility] [address] [place] [address] Dr. Comfort Marie 04-22-2022 L --- Specimen: [id number] Received: 04/23/22 Status: ESTHER Geiger Num: [id number] Spec Type: Surgical Subm Dr: Judd Hernandez MD Tissues: A Skin-Other than Cyst, tag, debridement or plastic repair (SCROTUM) Procedures: ATIF [place], Gross/Saeid L4 Age/ Patient Sex Location Account Attending Physician Leo Hussein/[place]iv [place] [id number] Judd Hernandez MD SPEC NUM: [id number] RECD: 04/23/22 STATUS: ESTHER GEIGER NUM: [id number] EMERALD: 04/22/[address]: Judd Hernandez MD ENTERED: 04/23/22 [facility] DR: SPEC TYPE: Surgical DEPT: S ORDERED: HE Stain, Gross/Micro L4 ORDERED: HE Stain, Gross/Micro L4 Pathological Diagnosis Skin, scrotum, excision: - 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 NOTE: Immunohistochemical studies of SMA, desmin S100 and CD34 have been performed. The tumor cells are positive for SMA and desmin, and negative for S100. CD34 highlights background blood vessels. Clinical Information Mass, increasing in size, primary biopsy, D 49.2 neoplasm of unspecified behavior of bone, soft tissue and skin Gross Description Received in formalin labeled with the patient's name, number and scrotum is a 1.0 x 0.7 x 0.2 cm excision of werner-moore, nodular skin which is inked, trisected. Entirely submitted in one cassette labeled A1. Microscopic Description One glass slide with H E stained material and four IHC stained slides have been examined. The microscopic findings support the above pathologic diagnosis. ANALYTE SPECIFIC REAGENT (ASR) DISCLAIMER: The use of one or more reagents in the above tests is regulated as an analyte specific reagent (ASR). The performance characteristics Specimen: [id number] Received: 04/23/22 Status: ESTHER Geiger Num: [id number] Spec Type: Surgical Subm Dr: Judd Hernandez MD Tissues: A Skin-Other than Cyst, tag, debridement or plastic repair (SCROTUM) Procedures: HE Stain, Gross/Micro L4 Patient: Leo Hussein [id number] (Continued) Specimen: [id number] Received: 04/23/22 (Continued) Microscopic Description (Continued) Signed (signature on file) Janes Cary MD 04/25/22 1019 Specimen: [id number] Received: 04/23/22 Status: ESTHER Geiger Num: [id number] Spec Type: Surgical Subm Dr: Judd Hernandez MD Tissues: A Skin-Other than Cyst, tag, debridement or plastic repair (SCROTUM) Procedures: ATIF [place], Gross/Micro L4 Patient: Leo Hussein [id number] (Continued) Specimen: [id number] Received: 04/23/22 (Continued) Microscopic Description (Continued) were determined by the [facility]. Immunohistochemistry assays have not been validated on decalcified tissue. Results should be interpreted with caution given the possibility of false negative results on decalcified specimens. They have not been cleared by the [place] Food and Drug Administration. The FDA has determined that such clearance or approval is not necessary. CPT Codes 27316, 00968, 46423 x3 Specimen: [id number] Received: 04/23/22 Status: ESTHER Geiger Num: [id number] Spec Type: Surgical Subm Dr: Judd Hernandez MD Tissues: A Skin-Other than Cyst, tag, debridement or plastic repair (SCROTUM) Procedures: HE Stain, Gross/Micro L4 Patient: Leo Hussein [id number] (Continued) Signed (signature on file) Janes Cary MD 04/25/22 1019 [facility] XR ANKLE RT MIN 3 VIEWSon XR ANKLE RT MIN 3 VIEWS EXAM: XR ANKLE R T MIN 3 VIEWS INDICATION: Acute right ankle pain for 11 days. COMPARISON: 12/26/2021 TECHNIQUE: Right ankle, 3 views FINDINGS: No acute fracture or dislocation. Mild degenerative changes of the mid and hindfoot, unchanged. Small plantar calcaneal spur. Unremarkable soft tissues. IMPRESSION: No acute osseous abnormality of the right ankle. Electronically authenticated by: DOMINICK FOWLER Date: 2022-01-06 12:24 Normal [facility] CT HEAD WO CONon 12-26-2021 CT HEAD WO CON EXAM: CT HEAD WO CON CLINICAL INDICATION: UNSPECIFIED INJURY OF HEAD, INITIAL ENCOUNTER COMPARISON: None TECHNIQUE: Axial CT images of the brain were obtained without contrast. Coronal and sagittal reformats were obtained. Dose reduction techniques were achieved by using automated exposure control and/or adjustment of mA and/or kV according to patient size and/or use of iterative reconstruction technique. FINDINGS: No intracranial hemorrhage, extra-axial fluid collection, hydrocephalus, midline shift, or acute infarction. No other mass effect. Patent basal cisterns. No calvarial fracture. Minimal occipital scalp edema. Paranasal sinuses and mastoid air cells are well-aerated. IMPRESSION: 1. No acute intracranial process. 2. Minimal occipital scalp edema. Electronically authenticated by: SEBASTIEN BURKETT Date: 2021-12-26 13:35 Normal [facility] Coding Summary.on 08-15-2021 Coding Summary. [id number] Gh0 bWw+PGhlYWQ+AC4IYSPgE96 vcLIavD5UD2dNIV4ZXGNAFR RQGU6TSU5znLI7DJrzS9Gtw iAv BioslJDuSC57ROe2AUA4uQv vYRmadE3ysJIaL7y7InDlDD 68vU82EZeoHUYjKdY2HpWdz jsgbWFy D5pnCuYnbWRqLwy+PHRhYmx lIHdpZHRoPScxMDAlJyBzdH vqQJ0tEe1jMMEsYVNouTkho HNlOiBj p1kiMDHnOEnxFY3yyPtiJ7T evPN2CBMne7z6Zv34cKC+PH PsBRN1rZhoLKdev154DxYxs 5lfMPF2 aYZuPYquKGX7J52kp2L6VVC vCHWsDMN7eCF1mP0ofZvtxf gdQ8TzgXSxJlK2TBE4mABlr T6jzDxe nrrqrQ4tSkp+G90GZJ9SIPN YRA1TFou5D8WoGmxftMI+PC 51KIVoLJ32uAXrnLRpc1prc Mh9XhTz YNTwIIS6mVdwSXahe1HhFLI fJ75exOWgz6E9ARYtcXofgR JvIiHulCC3gN3lINstuthfj 2hvdzsn Tefbf0vdty64jH57O01qQLb kKJZsMYG7AJTzOLYcuEpfdy 7trT4iKi4+YLbbb1snz0iqu Ay7QmZg OSEcunScvVvzYGA0l0HcBd4 3N6RleKrgq2VuRql1vq84vH Xpe3W4lQP8TYtsXDYfxU9hP WxlZnQ6 OHZrCjInoC26gSBwTXdcDf2 dmFmnlCeyXM2xYNAdsecrAP YspG4sAYDciXDuiYrwNO1rS TBpbjtm g865EtFuZKI9MZXnfRIiQ6G gwE0gHnCnXCAeOXPkV6FhnI EdMOghU865KCdhCyS2TUNjk zVlD2Mw VTLuvWjlKmF6t2H3Fg6To6G nbvnoWXQ8FMzeUCOcGuR9To GlJdK8R2VrUpq5FRTxhTujH G4oT6Pb YAHjgamfvdoktKH4ENGgLJH frR38yXZiBTyiMi5ak7D5r1 76CYBdHLVatR29Ff8ftHegX TBwdCBU xD3hzvrjv2hrqscqKpHsKBK jTRb3PRg1USWdnQblNvBzIA D1OiZ2VGZ7tEManI3ieAhpu wfdiJ8e Oyc+S64caO5iOJK6SWE2goo wEVOwowOhZM05IE65R9BqGc wvdGFibGU+PGRpdiBzdHlsZ U6vOcTv b6ztb3YyUBxqV5BuMINpEXf dZgp7ZLXeOVA4qNV2zH8bAP ZtEKaxc4F0fCU4V2DvolYtb b1ol5om NKVdLYzoY55ccYKzh2Z0YJN wgFA8HGFvoIdsYwSwlP93Xp c+ERVmcQims3KkVrvbc4wlq 4itrHg6 HkIbWRDgfcZrxJpqABX6y1T yTp07W35zOIprKPEtUSYqPU JoESZxlNeavu9nuS6lYa0+P GNvbCB3 eWP7wN6hILSaWkG5FBqpE91 7RbFkbYJoSwqwb3nkm3xefH j5DyIiIUGxmtMlrXpsOQI2q 4QhDj25 D31iJThlGCFmOWYiLGDgFTH flXfzeu3vpV8nBj3+PC9jb2 xrab41eH33xWM+VEZyFNJ0o WxlPSdw TVIxpP9sQWhcMyU3TJAnWuK weI21fEByKIroYw5cpOltwB soSQ4pDKUdamcqb306GbDxj 2xkIDEw hDEsTMkaPOW1F66kz2C8INX qECXlWGJ0bAD6jN9jwKtdxa ogbGVmdDsgdmVydGljYWwtY TywC026 IHRvcDsnPlBhdGllbnQgTmF vDPk4S5XrOjl7WBNntOvjPI 8tkQFpWOceWz6mcYbesYhuH Z9bZGBd rqzxn529PxSow3rmGRXqpQL uHLhwIBZ1Y90nf0F3OAJbZH BaNQM2vDY1mU3vnPqkazszw GVmdDsg fuDjzCdkMWevMBleW533KAY yyRorBwHdvpXzVYOqvKL2FL 76YU41kTNlg1B0gLN4X4YnA GRpbmct dcpdyWQ4CGBsVDLsoZ65Ci6 prWaxYs6jEQArRCU5JHFbgZ DrY5BqbP6nBsHnMSShBNExH 3RleHQt RBdyX794CXajYsS5IJWswcH zT1LcJBNteIxlRwM6j8Q4Sf 0MA4O1QY20RR40eBRyr3E4t BN7J2Zd JHKtnejfptboxWL9GDRsMFE fgG44Mg7lfPiyDy7sQLZsQP N4YGYkoQVwE8HveS7iVpGyG DAwMDAw R0IczUMuBAgjL213FUnaZyZ 1WTFublHtU4ZhNAFilVweJv X4v5G3Gf4RZUb2DX40KH91u LHdm3A9 nFU4U8MkTHBakdkcjqmkhGW 7HYHqDIYvdT40Id5krCzqKr 2qKNTmFFL9FQUlpAFqH5Oap B7gElRp UWLfETOoD4DfnGSzOMcoB58 9YPgdNyY7EEGmqxRhQ3BfIX AgkHkeTnL1r0S3Xu0KKGJqM V81PBV0 nRG2FJ50IY48F8AlQhkbuFM ibGU+PHRhYmxlIHdpZHRoPS knHGGbTcCktSnkPY4iFe3zZ GVyLWNv yJitoLUtWbHrw0uoTNOaXZy uUH8fhYjaA3GmrWT4IGKbr4 p3Cm37X58nG8HfkER+PGNvb NO2mXT9 lN1xErEgHcN3WRpmK978WlI fsCIbAfgwg8qzh1qreHb7Jq X7ZXPtjrVrqZrhZFM4g6GhP e92N36h IHdpZHRoPSIxNSUiIHZhbGl ntg4zsU0bDf9+KJQfpES6pZ T2lR8uYwKvAjP5VMwvA002F nRvcCIv Kudgu3feq6ejjVz7XpZoYZR hruXunQfbWPX6y9EtZd57G9 DsgYezj5VqFgx3rz01tANuv 8I0hBW1 Q1XlCIRmrxcltFNnuClvIU7 oYVHbkeenDSUmlJ2ySNAeM1 j8YdMpJyQ8GKjtJ6XyzqO1G DEwcHQg OAhmNGP1U41uv3B8KDOtYSL kRIG0xNE1lL7etNrlqywoyR VmdDsgdmVydGljYWwtYWxpZ 246IHRv lWkuVPMxdZ7wDQCjdFKznNi rBJ4nYMZmpxphHaBPGUVRWG ggEFRLC6MSZNaaTrzmeYG+P HRkIHN0 jZezJYucXAHwzV7vHTWaP2r 4AnDcEiW7STpsB1RtZMVklp exUc27kT7lCqVzJcM2MMebR 2OxnvM3 PKPehWSsVLlpZES9C57tt6C 2RWJmWJEjZVO6mXY6aX5guG lnbjogbGVmdDsgdmVydGljY WwtYWxp E788KYPbfLmaSqI1DvTzJpZ 1Xze1X5CqGsw4JMFjaLbkQI 7sdKTvWWgwMq4flFfpxEjoU J0iBTSr sfxsKJOsqE6bGKRwaNBxnZo qIV9dNLSwyzddr137PgKbKC B5HHJxjKEmC7TusF2cJdLjH DAwMDAw V1SncCWcKRqeB236TEqsYjE 7LLFqypUvB6DcIBPwaLmgFk B9d6J3Gi93CmUQSRUucqrdw GQ+PHRk LBH2bAqzMLqxMUGjtM1eOBK uR5c9HfCvQpO9NDzeQ1ScKZ SmsszmQc21pB1tUwCuFoJ3Y MnuR2Kb hcG1PJOtxNRyJGlgNRD7B65 kt4G3EKVvGXKzBVG3hWC5tK 1hbGlnbjogbGVmdDsgdmVyd GljYWwt MYeaS991FFUlbJijJy3iaYL 1X7YrVzc7REBodShyUW9sgC UaLRpaLd7hoMrmnUqmFR7bU TBpbjtw JVSqwW0pOYGsxEUuaAvtRU4 nQAZsazzyg635QzAcCGJ9XK QfnYQyA9BviQ5bFpNiTMAiF BKhP9Qf yJQzEFqwL933PNzmKrZ6JYX rzfNzU9QjLTOrpAeqLbM0g8 F2Ow4NjVYuIKMeQM23NR62U K47V1Cn PjwvdGFibGU+PHRhYmxlIHd pZHRoPScxMDAlJyBzdHlsZT 4oPp4dQYOpGYTtkAggyWOvQ qKha8mg WZGsZWdoGG1uvFpmA2PgiEI 7HUBee7s6Gp79T22aM7WuyP A+WBDziOS8oPA0yW8mKeOeN wM9BGwj F527EiFimEKtXpkcd9ctz6i weRl5LcOxGFZitgNbsVmhAI M2w5YsZb01L12uSCupWAPoC SIyMCUi TIYzbOzqga1asM4dDi5+PGN tuEA4jJP2iW4uXzLlUvC9ZC mrC036InRhsEMhKvmuF82tA 3JvdXA+ XBVeVhk5ACMwsXssUB0zaCM sSXjaSe3hION7VjYlQiTdHB bfG1OnKOKsaxrpcxrrfPX6Z DAuMDUw dH34Hh2kgRveRt4aHXStCSU 5SQKfwJVbQ9NafD2cByFwZM CbKHYoQ3DrdBTlLEnfI512A GxlZnQ7 NIKxtmAcK9VgPLZuaHseVqS 3h8G6Pd5TaTerzMXfTV3qJx ReWUn3G9WjOdy3IQTohTetX G9iaDDj EZmxMu2kmUoheXciPB5nPOJ xkjcgx624YpXnp7hnILKufC HoKNdoJEM2C74wg2B5QZDhJ DAwMDA7 wOP7xQ8hkJvemoktnHSjxVx wqmTrxHldMUwrBSgpC708RA WyrLzhIsYNKha5Z3XaKjo2R CBzdHls KT9eqPPsGLypMt1xpIjwmTa tON0yNVOnjadet420KsMzx6 xrCQQljEGyJEytUCK4S90if 5L3BGRk NFHqXXU4gAT2aT6hsXwbsji gbGVmdDsgdmVydGljYWwtYW bzU159WTFloLheIw6KGrs4U 7WoMbk3 CJOyiWwxJM7znFGlPUbsWf7 luHqzaHsqJA4wAJGtetysu2 63GzIrd3rlBYEzbEUxQWhoZ WR5M53h y8B8EGPvIOEuJGY6zLR3lS8 hbGlnbjogbGVmdDsgdmVydG wwWOfuVLraE481CLWdqCqeQ lBheWVy OjwvdGQ+HQ91vt81G2VnGck ePyz6GSIdVIO1kQC9gS1pWA GuNRzds9K8pPQ6M5FxaqSma v4eb0ep YXBz (more content not included)... Normal [facility] HCV RT-PCR, Quant (Non-Graph )on 08-06-2021 HCV RNA MARIPOSA+probe Qn Not detected Invalid Interpretation Code [facility] Comment on above: Performed By: #### 2 231339, 2417808, 2676491, 3386886, [id number] #### [facility] [address] [place] [address] Test Information: Comment Invalid Interpretation Code [facility] Comment on above: Result Comment: The quantitative range of this assay is 15 IU/mL to 100 million IU/mL. Performed at: [address] [id number] MD Efe Persaud Performed By: #### 2 605476, [id number], 2493130, [id number], [id number] #### [facility] [address] [place] [address] Consent for Treatmenton 07-20 Consent for Treatment [id number]#1.00C D:127 Normal [facility] Interdisciplinary Note - Nut jodyionon 06-05-2021 Interdisciplinary Note - Nutrition The outpatient therapy department received a call from Alberto this morning. He reportedly told them his blood sugar numbers and had questions r/t to these findings. I was able to return his call and spoke w him regarding his concerns. He did tell me his blood sugars are ranging from 560-97. He is also reporting to me he has a meeting planned with the dietitian at [facility] at 1 PM today. No further questions for me on this day. I have encouraged him to f/u w [facility] and his primary physician Dr Ivory. [facility] Comment on above: Result Comment: Elec tronically Signed By: Monster MAYERS, KAUSHIK, ASH, Yulisa\.br\Date and Time Signed: 06/05/21 11:19 EST Coding Summary.on 06-04-2021 Coding Summary. CD:[id number] Gh0 bWw+PGhlYWQ+VQ1ADKQeX19 flCJasW9SX6jTIW2NATCVVY TPRV9RUG1xnNQ2GIcdR0Rcs iAv NkcnuIQpIH71OFu9AQP2gAp lQBjmsM3lyQNaD9k3NsAjMW 16nH61KWghHBOxEeX7HjPuh jsgbWFy B3chCwXwgXWlPoy+PHRhYmx lIHdpZHRoPScxMDAlJyBzdH exKO7lBi0dILGeZQWynCean HNlOiBj q2mtDNYyAHbbJF1ppFmmN1L xsGB3ETDde1h5Id32tSN+PH IaOOA9xBadJEpbd183MiJcn 4cpIOL9 kWFhUZyfIBF7C31az7K6HOB pCQCyDHE6iXN5fY8vgImihv scP7HqfIAyCgE0AEL1zCXcu A4yxRaj hjxdgU3uXhg+J64NFB5FMEW OGH9NHej7S4BnNwcdyEZ+PC 99XEGxNM81uLIfgZJnh2vfy Ap3NsBm NWRmXDK5ySdzXPmvj2KhRRP pM36gpFHoq6C9AXRaqYejnI YfZvPzfRG7jQ0tMRajeazsw 2hvdzsn Ieeoq3kloh21jV37W67eWXh zSHWhWNI8QPCjKFKdsGqbgy 3vlS1rQs5+CTcvl6nfk2gle Hh7ZwSc SULlraVwlKkfLJV4g0WzWn8 5U3MnmDppe7NnXhz7wp26iB Gay9O3pNT6WYzlMCNzlX8mD WxlZnQ6 PXHsMvOabQ63hZUbHAjsRs6 ajBqwzFmwGD2hDLInagisDV AilJ0cYGFpfYTlrOwuPD1fY TBpbjtm a738JxDaHNG5RHQoxXSmA1D nlZ2bRqMcBDZcIMFaA4JmdD UjRPisI136QJdkFbJ4ZPDqs gKeZ9Fe ZEKzsQfoYaL1q8S0Vz1Rl7G vmwwoISF8KBunNIQfWnD7Cq OoGdY6P7XiCpe7LLCrtNhkY J3xT3Oa FCYrsqwifwoojBV3QXFqBVJ ulD28dFGeSZrxMg6vq2L3e2 23XHXdRXBvlY86Ln6lsIkeK TBwdCBU cV3dbdzbf4rspwcqLoEvAUM iGZp6IIb8BBSxzRocAoWsFF R7AbN7ZDU6mTTupI7jnHcyy lhbvZ2j Oyc+C80fgS0lXGP4IKK0ctu dRBAclaXwJH29PA85Y1FsHb wvdGFibGU+PGRpdiBzdHlsZ E0gWcDf f3wtn6HgNMzfX6TkSHFtTYs rZzt6TFWwGOC6aII5qQ4gCG UxMXlrf5I2vBZ6X1OipvQex r5ss4ol LRQxDNdaP35klCUyv6I9SKO kbRJ6SKUsxFubJjKczD45Ft c+YKJbeAauy4XkFbato0lpk 2gkxKi6 OoDvBQEaarEsaRzfRQA3m9N rYx39I03sXIplTWKwEEBoCG OnYNPdmUwzvp5diS0pOz1+P GNvbCB3 iCY5mF6xEXRzBiG6VOxlT94 7KiJyrVIkQjzzq5uvd3txmY k9YnDzZPCierKclQceQDG3h 4BgZm19 Z01jDNlnUBDoILCuCYVbQWE dpCjagl9flI0tMv5+PC9jb2 emfw05fO19gKG+FJMiMIK7p WxlPSdw JWBfeG1jBGlrPtR9WDMjTjT jbO11eRHoXCkzKp0ffLhzdK akJA3rCOKncjzkd498RtDzc 2xkIDEw qFVmZPcuLMA5Q29jj4C0EBL jSPHnXGA6aZC4rR8nkGhqlv ogbGVmdDsgdmVydGljYWwtY WaaU532 IHRvcDsnPlBhdGllbnQgTmF dBAw6A4XmIsy5BSIavCoiYD 7tgFWmVWzsOu6iwMkjfOczH V0kRWYi cvxce595ExVok8vgAAOwyPM zBNkyWXO4O16ys0Z2QTYrXV KhMUG2aFV6eU8xpQpfazzkk GVmdDsg phJcdBhnAIfmALepJ951OCA pnJmrSpWuhjTuEQMfmOJ2JJ 85WE67jSTpm8S6rYZ6V4FbU GRpbmct nqivqYI7USKdKWQuhF73Wg4 okVuwPy2dYTJjMPE5ORSogD YnN0XweN0bRpBxYRYdEPHyW 3RleHQt NNtzM854PDibJeH3PTWwdfH fO9UhFMDkuRnhImB7d9E7Xz 8VD4G5ED04MU04pWCyj2R4o NQ9G6Dw APKkmhbbwealfID9SYVdLUM enK20Ah7jrPkbEt5uTSJpQO C6QOJitQSaB5BxjI5gOwZbB DAwMDAw I5FkoMAxLPieM753SKpvPqS 8QIGvfrFzO8LaHPKdgPqmLx W7l7F4Dr1MBHy7EX96GK22n QQxp1G1 dYW7R7QcNGHiimedbslkuWU 5OXQhWVMmhB29Ux6kxAbaPq 0sUUXuWUN2VAVowKJpL0Xnq H7iQdJr WBErNWRkU8LdzJZkAEovP93 3BHklIvJ3GFNdaqNlK7SmWI ZedEobTsE8t8Q1Ej7TAYXqY C80YGD9 wWD2OZ03XL87O6FcRogeiVC ibGU+PHRhYmxlIHdpZHRoPS rqMIRrVgAjfXhgGE9dSg9zF GVyLWNv nXtxbDSkKkWda1rcKEZzCSi dLX1ijNjzP5AtcIY1HXQdd5 g0Od80Q20sC9KypUZ+PGNvb IE5yJO1 zM7wYnXhObX4NTltK202DsQ wuRLwLnerk2anw8bueTj3Yz C9BQAdriFpiTksECL7b1WuJ n55Y33n IHdpZHRoPSIxNSUiIHZhbGl szp7vaL0hNm1+IBRnnVJ7gG A8nI7mKzDxOrE4CWezP385T nRvcCIv Dytbp5kbp8akeCc8AvMeJCU kgnLvhVjhTCU6h5YiLn67N9 MoaQimc5XrPvz4ge68lLBqe 1C9dFL4 Y2UjUKEiqbqklLHoqHvuFF5 lUPWjvdmjIEIpcU0zRNMkC5 d6ZoArUoS1EUexC2YvbqP0A DEwcHQg VXloFMC6X16qe3N1JFZxVPN uNAY2vYM9jE4whWvsuigylS VmdDsgdmVydGljYWwtYWxpZ 246IHRv aQpoSXIliW2vLCOglVWlpVf dNI4mXSTutgdnMxQDTNHCYR enSLMQQ6BWDFkmKcndcQI+P HRkIHN0 cUfjPUtrYASqzG5hKKGbY8i 7MkKxPgW1KOnfO5PaWEPzab npFj19wK6qArBrLkF7EQkgS 7OzbwM9 ZFSyxZGuHYkkGAR1U14dk5X 1UGQgJMKsVFX7iTN0nB9jkZ lnbjogbGVmdDsgdmVydGljY WwtYWxp G387XBVlaJnpZvU3RoBeBdX 9Ivc2L0MkMba3PQQcxJlgMM 8gnUJlPNvhYe6jvEzyrYzkQ F4eRGJk jzdcAFQgkN7oOVBetLBllXc zPJ6nIHVrkvugr731XvRtRI B0FIRtxJWoK8DztE9pUqOrN DAwMDAw Q6LrrFTfZWwzR737IJhyMrK 8TEKrboQkZ1RqPESywQrfAo X8t8A2Cf01SnBZIFOiuphbn GQ+PHRk VKX8wCvjWZcxXLUuvZ6wKDW oF7t7ZdWsRaO8RKquU7FxPH QeamcxPu13yI0uIqXoSzU9T QchY6Ab mlI2DHWhoGQmBHpaPMB0J70 et1T7RQHbNWFuOPQ2qRW0xL 1hbGlnbjogbGVmdDsgdmVyd GljYWwt USdwT719VEVcbXjsPz3ayTM 1O0YnXfx5MKRjjZaxEB2foB WsOZacCu1hwGxavAppIV3aA TBpbjtw OPDyhD4wEWClqLIihSuxUA2 xOKZnfwgar958IqNpPPJ5IY RfnMZjU0HkaS2eXvQrAEByW DIfX4Nt fUDhABkzL651ZEgbRhB4DNX xatXrV1VwLGAwfYngBfD6f2 B0Lo9BdqRyrEsoxhY0G9YxU jwvdHI+ MB46CVMoBR00wTOfeJHvg8q cnRl7OrQjOHVuCOJ9qCfwJH lcq9QiBGBfM02bbOVax7V9G GNvbGxh mMOnGmPkmPT6gZ3tVDgrfgf ne5jpwohvTwukk4jebn61yO 87L62tSWgfWRQnMKJcCAJrX HZhbGln zl1gqX6wAr4+UXVqmFR5rRO 4dB3lLgWuRwK4JKarR382Hx AaoOFjWnaeb5qzj6zwjMf0C jIwJSIg fcEdyDqtKUH1p9NwEi69C59 sIHdpZHRoPSIyMCUiIHZhbG qkfl2fgL0cXo0+BT6tj5tiw c02qZ23 dHI+SSKwNEQ5oIujCKxlXPF nmN0cIXjzQrJ3QJTeOoYwyK 56fSVdFZkmRl1lhJlsmPywO A2hUSFd svzpy568TbXnk1mrAFHxnBH xLGxhPLJ2G72li3Z6IZZyET RhEXC5eEU3fZ1nfXrarpvqy GVmdDsg uwOuoRunZExvDKvfU486IQW yrRiiBwGxsWXiM2hixeRCQW 1lOjwvdGQ+AVTkODO6nIwvA SdwYWRk hE6jNKSzC3i2XhBcVwU4TCy jD9RvvrK6MDFleYFtDLLfbC XCbT9csgett6sshyetKxYhC DAwMDt0 CRy6NAHhiBcbAtLvVQZ8BeN 3JFI2bDNjbY0mwHrgxjpvyI 9wOyc+RklOOjwvdGQ+PHRkI QA8fFym IMukAUDubS2bQPVtH8p5LsL qNgH8EKfwC7HozfT0HOYuqR BoSKOreCJVbN5pdmitb4mnq jogIzAw ZSToXFx6SXx7SGYnuVkhBaL eLCB0DjK3DKX3qEXueG9bqQ vaomsneM9yIcg+TVJOOjwvd GQ+PHRk VXF8dYrkPLnvQBXasW9cAPQ vX4o0YsLvWrM8VLyzM9Ayti D5GEQtwNNzCZVhxTSPgM0ku kbal6bb uffpCcKdUCJzEMp6TUp3HGW dtZchGbIbDOB9WmU5DAI1xC RspU3zxHmdlgibtL7kBud+U VG0MZF7 ZU43NH84X6HjQyvcgPAebFG +PHRhYmxlIHdpZHRoPScxMD ZfAzLjnCszYC9vEi6oCQHnN WNvbGxh cHNl (more content not included)... Normal [facility] Discharge Instructionson Discharge Instructions [id number]#[id number] CD:127 Normal [facility] Insurance Correspondence Off iceon 06-04-2021 Insurance Correspondence Office [id number]#[id number] CD:127 Normal [facility] Auto Diffon 06-03-2021 Basophils/100 WBC (Bld) 1.0 % Normal 0.0-2.0 [facility] Comment on above: Order Comment: Order Added by Discern Expert. Performed By: #### 2 904332, 6394539, 0222112, 5200024, [id number] #### [facility] [address] [place] [address] Basophils/Leukocytes Auto (Bld) [Pure # fraction] 0.1 E9/L Normal 0.0-0.2 [facility] Comment on above: Order Comment: Order Added by Discern Expert. Performed By: #### 2 856050, 1359322, 0775055, 1867968, [id number] #### [facility] [address] [place] [address] Eosinophils/100 WBC (Bld) 1.6 % Normal 0.0-8.0 [facility] Comment on above: Order Comment: Order Added by Discern Expert. Performed By: #### 2 159102, 7726695, 1096231, 2855602, [id number] #### [facility] [address] [place] [address] Eosinophils/Leukocytes Auto (Bld) [Pure # fraction] 0.1 E9/L Normal 0.0-0.5 [facility] Comment on above: Order Comment: Order Added by Discern Expert. Performed By: #### 2 921773, 9511331, 5144195, 7174716, 83697238 #### [facility] [address] [place] [address] Lymphocytes/100 WBC (Bld) 45.2 % Normal 14.0-50.0 [facility] Comment on above: Order Comment: Order Added by Discern Expert. Performed By: #### 2 541929, 5079256, 4061336, 1005220, 49262823 #### [facility] [address] [place] [address] Lymphocytes/Leukocytes Auto (Bld) [Pure # fraction] 2.7 E9/L Normal 1.0-4.0 [facility] Comment on above: Order Comment: Order Added by Joaquina Expert. Performed By: #### 2 208104, 0309758, 9201414, 2168542, 41130229 #### [facility] [address] [place] [address] Monocytes/100 WBC (Bld) 9.2 % Normal 4.0-14.0 [facility] Comment on above: Order Comment: Order Added by Joaquina Expert. Performed By: #### 2 843945, 7478042, 2333929, 5462770, 22037902 #### [facility] [address] [place] [address] Monocytes/Leukocytes Auto (Bld) [Pure # fraction] 0.5 E9/L Normal 0.2-1.0 [facility] Comment on above: Order Comment: Order Added by Joaquina Expert. Performed By: #### 2 476432, 3131266, 0775653, 6751567, 70101175 #### [facility] [address] [place] [address] Neutrophils/100 WBC (Bld) 43.0 % Normal 36.0-75.0 [facility] Comment on above: Order Comment: Order Added by Joaquina Expert. Performed By: #### 2 918480, 2246805, 8503255, 4077776, 50187314 #### [facility] [address] [place] [address] Neutrophils/Leukocytes Auto (Bld) [Pure # fraction] 2.6 E9/L Normal 2.0-7.5 [facility] Comment on above: Order Comment: Order Added by Discern Expert. Performed By: #### 2 358902, 1878684, 1478332, 0848211, [id number] #### [facility] [address] [place] [address] BMPon 06-03-2021 Anion gap [Moles/Vol] 13 mmol/L Normal 6-16 [facility] Comment on above: Performed By: #### 2 366047, 9209424, 1778726, 7384171, 44887657 #### [facility] [address] [place] [address] Calcium [Mass/Vol] 8.3 mg/dL Low 8.9-11.1 [facility] Comment on above: Performed By: #### 2 510516, 0549412, 5981934, 3064439, 13039473 #### [facility] [address] [place] [address] Chloride [Moles/Vol] 103 mmol/L Normal 101-111 [facility] Comment on above: Performed By: #### 2 850520, 5785981, 5903675, 6774381, 74552509 #### [facility] [address] [place] [address] CO2 [Moles/Vol] 23 mmol/L Normal 21-31 [facility] Comment on above: Performed By: #### 2 960194, 1225378, 5226456, 6723589, 62405726 #### [facility] [address] [place] [address] Creatinine [Mass/Vol] 0.6 mg/dL Normal 0.5-1.3 [facility] Comment on above: Performed By: #### 2 565118, 4725060, 7080517, 6156719, 80248393 #### [facility] [address] [place] [address] Glucose [Mass/Vol] 223 mg/dL High 55-199 [facility] Comment on above: Result Comment: If t his glucose result represents a fasting glucose, interpretation should refer to the following reference range: 55-99 mg/dL Performed By: #### 2 563064, 7233068, 7435889, 4307577, 91244173 #### [facility] [address] [place] [address] Potassium [Moles/Vol] 3.6 mmol/L Normal 3.5-5.3 [facility] Comment on above: Performed By: #### 2 011693, 8400331, 6428458, 0698938, 75349544 #### [facility] [address] [place] [address] Sodium [Moles/Vol] 135 mmol/L Normal 135-145 [facility] Comment on above: Performed By: #### 2 190353, 5452630, 2289096, 3900041, 46686463 #### [facility] [address] [place] [address] Urea nitrogen [Mass/Vol] 11 mg/dL Normal 5-21 [facility] Comment on above: Performed By: #### 2 379137, 0355688, 5105898, 7401257, 83405259 #### [facility] [address] [place] [address] Urea nitrogen/Creatinine [Mass ratio] 18 No Units Normal 10-20 [facility] Comment on above: Performed By: #### 2 521572, 4408354, 8742478, 9884592, 05750898 #### [facility] [address] [place] [address] CBC w/ Auto Diffon 1 Erythrocyte distribution width (RBC) [Ratio] 13.5 % Normal 10.9-14.2 [facility] Comment on above: Performed By: #### 2 935633, 7867162, 4724467, 3771843, 51394785 #### [facility] [address] [place] [address] Hematocrit (Bld) [Volume fraction] 43.2 % Normal 37.7-49.0 [facility] Comment on above: Performed By: #### 2 226290, 3531879, 7604448, 0343269, 41050165 #### [facility] [address] [place] [address] Hemoglobin (Bld) [Mass/Vol] 15.1 g/dL Normal 13.5-17.5 [facility] Comment on above: Performed By: #### 2 596265, 7276495, 6440830, 8682592, 35738330 #### [facility] [address] [place] [address] MCH (RBC) [Entitic mass] 32.5 pg Normal 27.0-34.0 [facility] Comment on above: Performed By: #### 2 004233, 6115129, 4993430, 2039281, 98949423 #### [facility] [address] [place] [address] MCHC (RBC) [Mass/Vol] 35.0 g/dL Normal 31.4-36.0 [facility] Comment on above: Performed By: #### 2 825136, 1543230, 4694917, 2893482, 02470211 #### [facility] [address] [place] [address] MCV (RBC) [Entitic vol] 92.7 fL Normal 80.0-100.0 F [facility] Comment on above: Performed By: #### 2 506920, 1070344, 6873772, 2371542, 86288042 #### [facility] [address] [place] [address] Platelet mean volume (Bld) [Entitic vol] 8.2 fL Normal 6.4-10.8 [facility] Comment on above: Performed By: #### 2 030233, 2204539, 4634360, 0956087, 00412970 #### [facility] [address] [place] [address] Platelets (Bld) [#/Vol] 175.0 E9/L Normal 150.0-500.0 [facility] Comment on above: Performed By: #### 2 129960, 2093694, 9401121, 2493275, 96312433 #### [facility] [address] [place] [address] RBC (Bld) [#/Vol] 4.7 E12/L Normal 4.3-5.9 [facility] Comment on above: Performed By: #### 2 637865, 3176363, 7199017, 8018230, 56619165 #### [facility] [address] [place] [address] WBC corrected for nucl RBC Auto (Bld) [#/Vol] 5.9 E9/L Normal 4.0-11.0 [facility] Comment on above: Performed By: #### 2 598531, 7215238, 1707537, 8988603, 97999197 #### [facility] [address] [place] [address] Capillary Glucose POCon 05-20 Glucose [Mass/Vol] 281 mg/dL High 55-99 [facility] Comment on above: Result Comment: Billie TORRES Performed By: #### 2 [id number] #### [facility] [address] [place] [address] Glucose [Mass/Vol] 282 mg/dL High 55-99 [facility] Comment on above: Result Comment: Billie TORRES Performed By: #### 2 898397, 5888965, 3412955 #### [facility] [address] [place] [address] Glucose [Mass/Vol] 223 mg/dL High 55-99 [facility] Comment on above: Result Comment: Billie yao RN/ Performed By: #### 2 911127, 6362353, 3359524 #### [facility] [address] [place] [address] Glucose [Mass/Vol] 263 mg/dL High 55-99 [facility] Comment on above: Performed By: #### 2 122623, 6782118, 7845831 #### [facility] [address] [place] [address] D-Dimeron 06-03-2021 Fibrin D-dimer FEU (PPP) [Mass/Vol] 782 [id number] Abnormal 215-500 [facility] Comment on above: Result Comment: Resu lts Verified By Repeat Analysis. Results Called To Makenna Mullen By FIDENC[employer] And Read Back For Confirmation On 06/03/2021 11:47:04 EST. This assay is intended for use as an aid in the diagnosis of DVT or PE. These conditions cannot be excluded with certainty solely on the basis of a D-dimer concentration being within the reference range This D-Dimer assay may be used in conjunction with a non-high clinical pretest probability assessment to exclude deep-vein thrombosis(DVT). For exclusion of venous thrombosis or pulmonary embolism the analyte D-Dimer should not be used as an aid in patients with: Therapeutic dose anticoagulant therapy for >24 hours Fibrinolytic therapy within previous 7 days Trauma or surgery within previous 4 weeks Disseminated malignacies Aortic aneurysm Sepsis, severe infections, pneumonia, severe skin infections Liver cirrhosis Performed By: #### 2 [id number] #### [facility] [address] [place] [address] Discharge Note-Nursingon Discharge Note-Nursing patient reviewed insulin shown how to draw up from a bottle into syringe with competency. reviewed verbally how to use insulin pen Iman hopkins stated that she already seen and educated patient. patient became annoyed anf frustrated when this nurse was explaing he had two different insulins to be given patient showed no interest in learning stated he'd figure it out Normal [facility] Inpatient Clinical Summaryon 06-03-2021 Inpatient Clinical Summary [address] [address] Clinical Summary Person Information: Name: LEO HUSSEIN Age: 50 Years : 1970 Sex: Male PCP: RON IVORY MD Marital Status: Single Race: White Ethnicity: or Language: Burundian Visit Id: Visit Reason: Shortness of breath; DKA Speciality: Acuity: Enc Type: Inpatient Med Service: Medical Arrival: 06/01/2021 08:10:28 Discharge: Dispo [facility] Address: [address] [place] [id number] Provider Notes: Diagnosis: 1:DKA (diabetic ketoacidosis); 2:SOB (shortness of breath); 3:D-dimer, elevated; 4:Hypokalemia; 5:Hyponatremia; 6:HTN (hypertension); 7:IBS (irritable bowel syndrome); 8:GERD (gastroesophageal reflux disease); 9:Chronic headache disorder; 10:Depression; 11:Hepatitis C; 12:Marijuana use; 13:History of drug abuse; 14:History of transient ischemic attack (TIA); 15:Electrocution and nonfatal effects of electric current; 16:Obesity; 17:DVT prophylaxis Problems Active GERD (gastroesophageal reflux disease) Dyslexia PTSD (post-traumatic stress disorder) Smoking Status: Never Smoker Functional Status: Sensory Deficits: History of Falls: Mobility Assistance Prior to Admission: Independent ADLs: Independent Current Level of Assistance for Self-Care/Mobility: Cognitive Status: Oriented x 3 Allergies No Known Allergies Measurements: Height: 165 cm Weight: 99.1 kg Blood Pressure: 128 mmHg / 71 mmHg BMI: 34.42 kg/m2 Procedures Esophagogastroduodenosc opy Colonoscopy Immunizations No Immunizations Documented This Visit Final Med List: acetaminophen (acetaminophen 325 mg Tab) 2 Tablets By Mouth every 6 hours as needed Pain. aspirin 81 Milligram By Mouth every day. esomeprazole (esomeprazole 40 mg Cap-EC) 1 Capsules By Mouth 2 times a day. hydrochlorothiazide (hydrochlorothiazide 25 mg oral tablet) 1 Tablets By Mouth every day. insulin detemir (Levemir 100 units/mL Injection-Insulin) 20 Units Subcutaneous 2 times a day for 30 Days. Refills: 0. insulin lispro (insulin lispro 100 units/mL injectable solution) 0-10 Units Subcutaneous four times a day (before meals and at bedtime). Refills: 0. Misc Prescription (Glucometer) 0. Glucometer for QID testing. Refills: 0. Misc Prescription (Glucose testing strips) 0. 1 box for QID testing. Refills: 0. Misc Prescription (insulin syringes) 0. 1 box for QID dosing. Refills: 0. Misc Prescription (lancets) 0. 1 box of lancets for QID testing. Refills: 0. sertraline (Zoloft 25 mg Tab) 1 Tablets By Mouth every day. Care Team Members: Attending Physician: Sal DUEÑAS MD Consulting Physician: Referring Physician: Follow up: With: Address: When: RON IVORY [address] [place] [address] Business (1) 06/04/2021 3:00 PM With: Address: When: Call [facility] to set up diabetic education as soon as possible Type Location Start [facility] Follow Up [facility] 07/04/2021 2:15 PM 07/04/2021 2:30 PM Confirmed Patient Education Information: Type 2 Diabetes Mellitus, Self Care, Adult, [id number]; Type 2 Diabetes Mellitus, Diagnosis, Adult, [id number]; Obesity, Adult, [id number]; Form - Daily Diabetes Record; Exercising to Lose Weight; Diabetic Ketoacidosis; Diabetes Mellitus and Sick Day Management; Diabetes Mellitus and Nutrition, Adult; Diabetes Mellitus and Foot Care; Diabetes Mellitus and Exercise; DASH Eating Plan; BMI for Adults; Blood Glucose Monitoring, Adult Humulin R, Levemir Normal [facility] Inpatient Patient Summaryon 06-03-2021 Inpatient Patient Summary [address] [address] Patient Discharge Instructions PERSON INFORMATION Name: LEO HUSSEIN Date of : 1970 Current Date: 06/03/2021 15:44:41 PHYSICIANS Admitting Physician: Sal DUEÑAS MD Primary Care Physician: RON IVORY MD PCP Comment: Discharge Diagnosis: 1:DKA (diabetic ketoacidosis); 2:SOB (shortness of breath); 3:D-dimer, elevated; 4:Hypokalemia; 5:Hyponatremia; 6:HTN (hypertension); 7:IBS (irritable bowel syndrome); 8:GERD (gastroesophageal reflux disease); 9:Chronic headache disorder; 10:Depression; 11:Hepatitis C; 12:Marijuana use; 13:History of drug abuse; 14:History of transient ischemic attack (TIA); 15:Electrocution and nonfatal effects of electric current; 16:Obesity; 17:DVT prophylaxis Condition at Discharge: Improved LEO HUSSEIN has been given the following list of follow-up instructions, prescriptions, and patient education materials: PATIENT FOLLOW-UP INFORMATION Diet: Calorie Controlled- 1800 Calorie Diet, Fat Modified- Low cholesterol, Low Sodium- 2000 mg, Other: Check you blood sugar level before each meal and at 9pm and use sliding scale for those numbers in additional to your levemir that you take in the a.m. an... Discharge Activity: Ambulate as tolerated, Activity as tolerated Discharge Restrictions: No restrictions Wound Care Instructions: Remove Your Dressing In Days Call Your Doctor For: IF UNABLE TO CONTACT YOUR PHYSICIAN AND YOU FEEL IT IS AN EMERGENCY, GO TO THE NEAREST EMERGENCY ROOM OR CALL 911 Home Treatment: Devices/Equipment: Special Services: Additional Instructions: Follow up with PCP and DM educator as written Monitor your glucose levels 4 x a day, if glucose level is less than 150 hold insulin and/or greater than 400 call PCP for further instructions, Primary Care Physician to provide the following pending test results: None Follow up: With: Address: When: RON VIORY [address] [place] [id number] Business (1) 06/04/2021 3:00 PM With: Address: When: Call [facility] to set up diabetic education as soon as possible In the event that this physician does not participate in your insurance network, please consult with your insurance company to find a nearby participating provider. Type Location [facility] Follow Up [facility] 07/04/2021 2:15 PM 07/04/2021 2:30 PM Confirmed Comment: RANDY Herbert RUSSELL G, have received the attached patient education materials/instructions and have verbalized understanding: Patient Signature Date Clinican/Nurse Signature _ Date HERE ARE THE MEDICATION CHANGES THAT OCCURRED DURING YOUR HOSPITAL STAY New Medications [facility] 1988, [address] [place], [place] [id number], [phone] insulin detemir (Levemir 100 units/mL Injection-Insulin) 20 Units Subcutaneous 2 times a day for 30 Days. Refills: 0. Last Dose: __Next Dose: __ insulin lispro (insulin lispro 100 units/mL injectable solution) 0-10 Units Subcutaneous four times a day (before meals and at bedtime). Refills: 0. Last Dose: __Next Dose: __ Printed Prescriptions Misc Prescription (Glucometer) 0. Glucometer for QID testing. Refills: 0. Last Dose: __Next Dose: __ Misc Prescription (Glucose testing strips) 0. 1 box for QID testing. Refills: 0. Last Dose: __Next Dose: __ Misc Prescription (insulin syringes) 0. 1 box for QID dosing. Refills: 0. Last Dose: __Next Dose: __ Misc Prescription (lancets) 0. 1 box of lancets for QID testing. Refills: 0. Last Dose: __Next Dose: __ Other Medications acetaminophen (acetaminophen 325 mg Tab) 2 Tablets By Mouth every 6 hours as needed Pain. Last Dose: __Next Dose: __ aspirin 81 Milligram By Mouth every day. Last Dose: __Next Dose: __ Medications to Continue Taking That Have Changed Other Medications START: esomeprazole (esomeprazole 40 mg Cap-EC) 1 Capsules By Mouth 2 times a day. Last Dose: __Next Dose: __ START: sertraline (Zoloft 25 mg Tab) 1 Tablets By Mouth every day. Last Dose: __Next Dose: __ Medications to Continue with No Changes Other Medications hydrochlorothiazide (hydrochlorothiazide 25 mg oral tablet) 1 Tablets By Mouth every day. Last Dose: __Next Dose: __ Comment: MEDICATION LIST PROVIDED FOR YOU IS A LIST OF YOUR CURRENT MEDICATIONS. PLEASE CARRY THIS WITH YOU AT ALL TIMES. (more content not included)... Normal [facility] Insurance Correspondence Off 06-03-2021 Insurance Correspondence Office [id number]#1.00 CD:127 [facility] Insurance Correspondence Office [id number]#[id number] CD:127 [facility] Interdisciplinary Note - Iggy e Manageron 06-03-2021 Interdisciplinary Note - Airborne Sensor Specialist Pt is awake and alert in bed, previously rounded with Jocelyn CHURCHILL . PCP verified and insurance information reviewed and DME discussed. Contact information provided and white board updated. Pt is aware of plan to DC home today. Pt [place] agreeable to [place] and would like to see at 8 or 9 tomorrow morning. Pt is moving to [place] tomorrow and new address and phone number included in paramedicine referral to resource center. Pt declines any further concerns or DC needs. Pt will drive self home at [place]. CRM following. [facility] Comment on above: Result Comment: Elec tronically Signed By: Shayan SPRAGUE, Lucía\.lizzie\Date and Time Signed: 06/03/21 10:07 EST Message from Medicareon 05-20 Message from Medicare [id number]#1.00 CD:127 [facility] Monitor Recordon 06-03-2021 Monitor Record [id number]#1.00 CD:127 [facility] Monitor Record [id number]#[id number] CD:127 [facility] Phosphoruson 06-03-2021 Phosphate [Mass/Vol] 2.0 mg/dL Normal 1.9-4.6 [facility] Comment on above: Performed By: #### 2 [id number], 2214296, 9867879, 4714917, [id number] #### [facility] [address] [place] [address] LE Venous Duplex Bilatera jolie 06-03-2021 LE Venous Duplex Bilateral Exam Date/Time: 06/03/2021 08:39 EST Reason for Exam: Elevated D-Dimer Report IMPRESSION: NO EVIDENCE OF VENOUS THROMBOSIS INVOLVING VISUALIZED DEEP VEINS OF BOTH LEGS. CLINICAL HISTORY: Elevated D-Dimer. Leg pain. COMMENT: The greater saphenous veins, common femoral veins, femoral veins, deep femoral veins, and popliteal veins bilaterally demonstrate spontaneous phasic venous flow with augmentation, non-pulsatility, and compressibility every 2 cm. The posterior tibial and peroneal deep calf veins bilaterally compress. FINAL REPORT Dictated: 06/03/2021 1:49 pm Law Gupta M.D. Signed (Electronic Signature): 06/03/2021 1:49 pm Signed by: Law Gupta M.D. Transcribed by: YOCASTA Technologist: HW Normal [facility] eGFRon 06-03-2021 GFR/1.73 sq M.predicted among blacks MDRD (S/P/Bld) [Vol rate/Area] mL/min/{1.73_m2} Normal >=59 [facility] Comment on above: Order Comment: Order added by Discern Expert. Result Comment: eGFR is race adjusted. AA=. Performed By: #### 2 365452, 4720566, 7497557, 6653681, [id number] #### [facility] [address] [place] [address] GFR/1.73 sq M.predicted among non-blacks MDRD (S/P/Bld) [Vol rate/Area] mL/min/{1.73_m2} Normal >=59 [facility] Comment on above: Order Comment: Order added by Discern Expert. Result Comment: Record Systems Analyst amira kidney disease could be indicated at eGFR's of less than 60 mL/min/1.73m2. Kidney failure is indicated at less than 15 mL/min/1.73m2. Performed By: #### 2 625997, 0980948, 2927601, 3934305, 73680811 #### [facility] [address] [place] [address] Auto Diffon 06-02-2021 Basophils/100 WBC (Bld) 0.8 % Normal 0.0-2.0 F [facility] Comment on above: Order Comment: Order Added by Discern Expert. Performed By: #### 2 [id number] #### [facility] [address] [place] [address] Basophils/Leukocytes Auto (Bld) [Pure # fraction] 0.1 E9/L Normal 0.0-0.2 [facility] Comment on above: Order Comment: Order Added by Discern Expert. Performed By: #### 2 [id number] #### [facility] [address] [place] [address] Eosinophils/100 WBC (Bld) 1.9 % Normal 0.0-8.0 [facility] Comment on above: Order Comment: Order Added by Discern Expert. Performed By: #### 2 [id number] #### [facility] [address] [place] [address] Eosinophils/Leukocytes Auto (Bld) [Pure # fraction] 0.1 E9/L Normal 0.0-0.5 [facility] Comment on above: Order Comment: Order Added by Discern Expert. Performed By: #### 2 [id number] #### [facility] [address] [place] [address] Lymphocytes/100 WBC (Bld) 44.2 % Normal 14.0-50.0 [facility] Comment on above: Order Comment: Order Added by Discern Expert. Performed By: #### 2 [id number] #### [facility] [address] [place] [address] Lymphocytes/Leukocytes Auto (Bld) [Pure # fraction] 3.3 E9/L Normal 1.0-4.0 [facility] Comment on above: Order Comment: Order Added by Discern Expert. Performed By: #### 2 [id number] #### [facility] [address] [place] [address] Monocytes/100 WBC (Bld) 8.9 % Normal 4.0-14.0 [facility] Comment on above: Order Comment: Order Added by Discern Expert. Performed By: #### 2 [id number] #### [facility] [address] [place] [address] Monocytes/Leukocytes Auto (Bld) [Pure # fraction] 0.7 E9/L Normal 0.2-1.0 [facility] Comment on above: Order Comment: Order Added by Discern Expert. Performed By: #### 2 [id number] #### [facility] [address] [place] [address] Neutrophils/100 WBC (Bld) 44.2 % Normal 36.0-75.0 [facility] Comment on above: Order Comment: Order Added by Discern Expert. Performed By: #### 2 [id number] #### [facility] [address] [place] [address] Neutrophils/Leukocytes Auto (Bld) [Pure # fraction] 3.3 E9/L Normal 2.0-7.5 [facility] Comment on above: Order Comment: Order Added by Discern Expert. Performed By: #### 2 [id number] #### [facility] [address] [place] [address] BMPon 06-02-2021 Anion gap [Moles/Vol] 12 mmol/L Normal 6-16 [facility] Comment on above: Performed By: #### 2 [id number] #### [facility] [address] [place] [address] Calcium [Mass/Vol] 8.1 mg/dL Low 8.9-11.1 [facility] Comment on above: Performed By: #### 2 [id number] #### [facility] [address] [place] [address] Chloride [Moles/Vol] 108 mmol/L Normal 101-111 [facility] Comment on above: Performed By: #### 2 [id number] #### [facility] [address] [place] [address] CO2 [Moles/Vol] 21 mmol/L Normal 21-31 [facility] Comment on above: Performed By: #### 2 [id number] #### [facility] [address] [place] [address] Creatinine [Mass/Vol] 0.8 mg/dL Normal 0.5-1.3 [facility] Comment on above: Performed By: #### 2 [id number] #### [facility] [address] [place] [address] Glucose [Mass/Vol] 119 mg/dL Normal 55-199 [facility] Comment on above: Result Comment: If t his glucose result represents a fasting glucose, interpretation should refer to the following reference range: 55-99 mg/dL Performed By: #### 2 [id number] #### [facility] [address] [place] [address] Potassium [Moles/Vol] 3.6 mmol/L Normal 3.5-5.3 [facility] Comment on above: Performed By: #### 2 [id number] #### [facility] [address] [place] [address] Sodium [Moles/Vol] 137 mmol/L Normal 135-145 [facility] Comment on above: Performed By: #### 2 [id number] #### [facility] [address] [place] [address] Urea nitrogen [Mass/Vol] 14 mg/dL Normal - [facility] Comment on above: Performed By: #### 2 [id number] #### [facility] [address] [place] [address] Urea nitrogen/Creatinine [Mass ratio] 18 No Units Normal - [facility] Comment on above: Performed By: #### 2 08130168 #### [facility] [address] [place] [address] BUNon 06-02-2021 Urea nitrogen [Mass/Vol] 15 mg/dL Normal - [facility] Comment on above: Performed By: #### 2 483394, 6542987, 9111242 #### [facility] [address] [place] [address] Urea nitrogen [Mass/Vol] 11 mg/dL Normal - [facility] Comment on above: Performed By: #### 2 070882, 2631801, 6067448, 2056624, 38806780 #### [facility] [address] [place] [address] Urea nitrogen [Mass/Vol] 13 mg/dL Normal - [facility] Comment on above: Performed By: #### 2 283736, 9426879, 2216673, 0840605, 35253505 #### [facility] [address] [place] [address] Urea nitrogen [Mass/Vol] 17 mg/dL Normal 5-21 [facility] Comment on above: Performed By: #### 2 [id number] #### [facility] [address] [place] [address] CBC w/ Auto Diffon Erythrocyte distribution width (RBC) [Ratio] 13.1 % Normal 10.9-14.2 [facility] Comment on above: Performed By: #### 2 22955794 #### [facility] [address] [place] [address] Hematocrit (Bld) [Volume fraction] 40.3 % Normal 37.7-49.0 [facility] Comment on above: Performed By: #### 2 [id number] #### [facility] [address] [place] [address] Hemoglobin (Bld) [Mass/Vol] 14.1 g/dL Normal 13.5-17.5 [facility] Comment on above: Performed By: #### 2 08658287 #### [facility] [address] [place] [address] MCH (RBC) [Entitic mass] 32.3 pg Normal 27.0-34.0 [facility] Comment on above: Performed By: #### 2 [id number] #### [facility] [address] [place] [address] MCHC (RBC) [Mass/Vol] 34.9 g/dL Normal 31.4-36.0 [facility] Comment on above: Performed By: #### 2 [id number] #### [facility] [address] [place] [address] MCV (RBC) [Entitic vol] 92.5 fL Normal 80.0-100.0 F [facility] Comment on above: Performed By: #### 2 [id number] #### [facility] [address] [place] [address] Platelet mean volume (Bld) [Entitic vol] 8.0 fL Normal 6.4-10.8 [facility] Comment on above: Performed By: #### 2 [id number] #### [facility] [address] [place] [address] Platelets (Bld) [#/Vol] 163.0 E9/L Normal 150.0-500.0 [facility] Comment on above: Performed By: #### 2 [id number] #### [facility] [address] [place] [address] RBC (Bld) [#/Vol] 4.4 E12/L Normal 4.3-5.9 [facility] Comment on above: Performed By: #### 2 [id number] #### [facility] [address] [place] [address] WBC corrected for nucl RBC Auto (Bld) [#/Vol] 7.4 E9/L Normal 4.0-11.0 [facility] Comment on above: Performed By: #### 2 [id number] #### [facility] [address] [place] [address] Capillary Glucose POCon 05-20 Glucose [Mass/Vol] 261 mg/dL High 55-99 [facility] Comment on above: Result Comment: Billie yao RN/ Performed By: #### 2 414903, 2099951, 7071976, 5674060, 69140160 #### [facility] [address] [place] [address] Glucose [Mass/Vol] 370 mg/dL High 55-99 [facility] Comment on above: Result Comment: Brittany hans Meter Performed By: #### 2 759695, 8468479, 2008086 #### [facility] [address] [place] [address] Glucose [Mass/Vol] 443 mg/dL High 55-99 [facility] Comment on above: Result Comment: Brittayn hans Meter Performed By: #### 2 739491, 5971435, 8696958 #### [facility] [address] [place] [address] Glucose [Mass/Vol] 383 mg/dL High [address] [place] [address] Comment on above: Performed By: #### 2 188969, 0787052, 9041638, 3708051, 31341611 #### [facility] [address] [place] [address] Glucose [Mass/Vol] 181 mg/dL High -[address] [place] [address] Comment on above: Performed By: #### 2 763347, 0850944, 5322480 #### [facility] [address] [place] [address] Glucose [Mass/Vol] 166 mg/dL [address] Comment on above: Result Comment: Billie TORRES Performed By: #### 2 370986, 4078566, 4198511 #### [facility] [address] [place] [address] Glucose [Mass/Vol] 164 mg/dL [address] Comment on above: Performed By: #### 2 773828, 6088069, 9479631, 7319461, 56117947 #### [facility] [address] [place] [address] Glucose [Mass/Vol] 137 mg/dL [address] Comment on above: Result Comment: Billie TORRES Performed By: #### 2 [id number] #### [facility] [address] [place] [address] Glucose [Mass/Vol] 158 mg/dL [facility] [address] [place] [address] Comment on above: Result Comment: Billie TORRES Performed By: #### 2 068470, 2165612, 6857831 #### [facility] [address] [place] [address] Glucose [Mass/Vol] 203 mg/dL High [address] [place] [address] Comment on above: Result Comment: Billie TORRES Performed By: #### 2 021843, 3634331, 4219819, 0106191, 04206269 #### [facility] [address] [place] [address] Glucose [Mass/Vol] 197 mg/dL [address] Comment on above: Result Comment: Billie TORRES Performed By: #### 2 983436, 6584365, 3810506, 9827241, 11402116 #### [facility] [address] [place] [address] Glucose [Mass/Vol] 223 mg/dL [place] [address] [place] [address] Comment on above: Result Comment: Billie TORRES Performed By: #### 2 735841, 4275470, 8803633, 8125426, 71976243 #### [facility] [address] [place] [address] Glucose [Mass/Vol] 192 mg/dL [address] Comment on above: Result Comment: Billie TORRES Performed By: #### 2 346195, 7488250, 1894979, 1050457, 42408441 #### [facility] [address] [place] [address] Glucose [Mass/Vol] 171 mg/dL [address] Comment on above: Result Comment: Billie TORRES Performed By: #### 2 702420, 5802770, 5622245, 9304548, 53474612 #### [facility] [address] [place] [address] Glucose [Mass/Vol] 203 mg/dL [address] Comment on above: Result Comment: Billie TORRES Performed By: #### 2 956328, 2668650, 4566273 #### [facility] [address] [place] [address] Creatinineon 06-02-2021 Creatinine [Mass/Vol] 0.8 mg/dL Normal 0.5-1.3 [facility] Comment on above: Performed By: #### 2 851992, 4381534, 6240727 #### [facility] [address] [place] [address] Creatinine [Mass/Vol] 0.7 mg/dL Normal 0.5-1.3 [facility] Comment on above: Performed By: #### 2 471544, 5482767, 8999974, 6425140, 59206738 #### [facility] [address] [place] [address] Creatinine [Mass/Vol] 0.6 mg/dL Normal 0.5-1.3 [facility] Comment on above: Performed By: #### 2 854552, 2133015, 4022070, 2500716, 25349762 #### [facility] [address] [place] [address] Creatinine [Mass/Vol] 0.8 mg/dL Normal 0.5-1.3 [facility] Comment on above: Performed By: #### 2 78193094 #### [facility] [address] [place] [address] D-Dimeron 06-02-2021 Fibrin D-dimer FEU (PPP) [Mass/Vol] 694 [id number] Abnormal 215-500 [facility] Comment on above: Result Comment: Resu lts Verified By Repeat Analysis Results Called To [facility] By Shannon Santana And Read Back For Confirmation On 06/02/2021 06:04:32 EST. This assay is intended for use as an aid in the diagnosis of DVT or PE. These conditions cannot be excluded with certainty solely on the basis of a D-dimer concentration being within the reference range This D-Dimer assay may be used in conjunction with a non-high clinical pretest probability assessment to exclude deep-vein thrombosis(DVT). For exclusion of venous thrombosis or pulmonary embolism the analyte D-Dimer should not be used as an aid in patients with: Therapeutic dose anticoagulant therapy for >24 hours Fibrinolytic therapy within previous 7 days Trauma or surgery within previous 4 weeks Disseminated malignacies Aortic aneurysm Sepsis, severe infections, pneumonia, severe skin infections Liver cirrhosis Performed By: #### 2 001505, 8120904, 0197489 #### [facility] [address] [place] [address] Glucoseon 06-02-2021 Glucose [Mass/Vol] 478 mg/dL Abnormal 55-199 [facility] Comment on above: Result Comment: Crit ical Result verified by repeat analysis\Critical Result [id number] Called to DENNIS PLUMMER AT [facility]S by ROSALINE MAHAJAN And Read Back For Confirmation at: 06/02/2021 17:05:29 Performed By: #### 2 413157, 6960315, 1249048 #### [facility] [address] [place] [address] Glucose [Mass/Vol] 386 mg/dL High 55-199 [facility] Comment on above: Performed By: #### 2 658389, 7292684, 0209382, 5188239, 76579125 #### [facility] [address] [place] [address] Glucose [Mass/Vol] 172 mg/dL Normal 55-199 [facility] Comment on above: Performed By: #### 2 423417, 6806582, 2235363, 9335456, 54751132 #### [facility] [address] [place] [address] Glucose [Mass/Vol] 184 mg/dL Normal 55-199 [facility] Comment on above: Performed By: #### 2 691700, 6596841, 3985191, 0194996, 50241589 #### [facility] [address] [place] [address] [id number] 06-02-2021 HbA1c (Bld) [Mass fraction] 14.8 % High <=5.9 [facility] Comment on above: Order Comment: May a dd on to todays labs Performed By: #### 2 719295, 5744863, 0078401 #### [facility] [address] [place] [address] Lipid Panelon 06-02-2021 Cholesterol [Mass/Vol] 161 mg/dL Normal 120-200 [facility] Comment on above: Performed By: #### 2 144435, 9495401, 0256993 #### [facility] [address] [place] [address] Cholesterol in HDL [Mass/Vol] 24 mg/dL Invalid Interpretation Code [facility] Comment on above: Result Comment: HDL > or equal to 60 mg/dL: Low cardiovascular risk HDL < 40 mg/dL : High cardiovascular risk Performed By: #### 2 034238, 0167366, 0489214 #### [facility] [address] [place] [address] Cholesterol in LDL [Mass/Vol] 68 mg/dL Normal <=129 [facility] Comment on above: Performed By: #### 2 838657, 3545918, 3408874 #### [facility] [address] [place] [address] Cholesterol in VLDL [Mass/Vol] 62 mg/dL High 7-40 [facility] Comment on above: Performed By: #### 2 322424, 6450924, 4555125 #### [facility] [address] [place] [address] Triglyceride [Mass/Vol] 312 mg/dL High <=149 F [facility] Comment on above: Performed By: #### 2 288286, 8946473, 8749390 #### [facility] [address] [place] [address] Lyteson 06-02-2021 Anion gap [Moles/Vol] 15 mmol/L Normal 6-16 [facility] Comment on above: Performed By: #### 2 378551, 0194552, 8741915 #### [facility] [address] [place] [address] Chloride [Moles/Vol] 103 mmol/L Normal 101-111 [facility] Comment on above: Performed By: #### 2 013053, 8556475, 8260593 #### [facility] [address] [place] [address] CO2 [Moles/Vol] 16 mmol/L Low 21-31 [facility] Comment on above: Performed By: #### 2 759612, 2932580, 4288073 #### [facility] [address] [place] [address] Potassium [Moles/Vol] 4.5 mmol/L Normal 3.5-5.3 [facility] Comment on above: Performed By: #### 2 395840, 4319759, 6978164 #### [facility] [address] [place] [address] Sodium [Moles/Vol] 129 mmol/L Low 135-145 [facility] Comment on above: Performed By: #### 2 260083, 8402795, 5160101 #### [facility] [address] [place] [address] Anion gap [Moles/Vol] 13 mmol/L Normal 6-16 [facility] Comment on above: Performed By: #### 2 752189, 9710316, 5674210, 3339289, 51927439 #### [facility] [address] [place] [address] Chloride [Moles/Vol] 103 mmol/L Normal 101-111 [facility] Comment on above: Performed By: #### 2 808422, 5983867, 7867310, 2514995, 84354723 #### [facility] [address] [place] [address] CO2 [Moles/Vol] 19 mmol/L Low 21-31 [facility] Comment on above: Performed By: #### 2 153667, 6553190, 0264619, 2352458, 53716722 #### [facility] [address] [place] [address] Potassium [Moles/Vol] 4.4 mmol/L Normal 3.5-5.3 [facility] Comment on above: Performed By: #### 2 497047, 4917249, 8221208, 7878498, 67097868 #### [facility] [address] [place] [address] Sodium [Moles/Vol] 131 mmol/L Low 135-145 [facility] Comment on above: Performed By: #### 2 681662, 4230999, 6809642, 9061548, 10618977 #### [facility] [address] [place] [address] Anion gap [Moles/Vol] 10 mmol/L Normal 6-16 [facility] Comment on above: Performed By: #### 2 484221, 7571884, 6464330, 9963897, 76612337 #### [facility] [address] [place] [address] Chloride [Moles/Vol] 107 mmol/L Normal 101-111 [facility] Comment on above: Performed By: #### 2 861379, 9085041, 6277801, 2423813, 92793024 #### [facility] [address] [place] [address] CO2 [Moles/Vol] 19 mmol/L Low 21-31 [facility] Comment on above: Performed By: #### 2 883522, 3987892, 5462052, 4434642, 58108820 #### [facility] [address] [place] [address] Potassium [Moles/Vol] 3.3 mmol/L Low 3.5-5.3 [facility] Comment on above: Performed By: #### 2 314520, 6286350, 8570466, 4249242, 25260678 #### [facility] [address] [place] [address] Sodium [Moles/Vol] 133 mmol/L Low 135-145 [facility] Comment on above: Performed By: #### 2 071788, 3517099, 4352956, 3283236, [id number] #### [facility] [address] [place] [address] Anion gap [Moles/Vol] 14 mmol/L Normal 6-16 [facility] Comment on above: Performed By: #### 2 399828, 5697769, 8803525, 6114768, 06219314 #### [facility] [address] [place] [address] Chloride [Moles/Vol] 104 mmol/L Normal 101-111 [facility] Comment on above: Performed By: #### 2 129882, 4098101, 0306107, 5539806, 68227983 #### [facility] [address] [place] [address] CO2 [Moles/Vol] 18 mmol/L Low 21-31 [facility] Comment on above: Performed By: #### 2 116491, 4617183, 3935790, 1113930, 50224713 #### [facility] [address] [place] [address] Potassium [Moles/Vol] 3.8 mmol/L Normal 3.5-5.3 [facility] Comment on above: Performed By: #### 2 654058, 8064488, 3418015, 5136230, 48291194 #### [facility] [address] [place] [address] Sodium [Moles/Vol] 132 mmol/L Low 135-145 [facility] Comment on above: Performed By: #### 2 272816, 2698266, 6161678, 2926193, 59384300 #### [facility] [address] [place] [address] Magnesiumon 06-02-2021 Magnesium [Mass/Vol] 1.9 mg/dL Normal 1.3-2.4 [facility] Comment on above: Performed By: #### 2 924348, 2859542, 8050502, 6103243, 50123565 #### [facility] [address] [place] [address] Magnesium [Mass/Vol] 1.8 mg/dL Normal 1.3-2.4 [facility] Comment on above: Performed By: #### 2 539069, 0829720, 3064571 #### [facility] [address] [place] [address] Monitor Recordon 06-02-2021 Monitor Record [id number] 100 [id number]#1.00 CD:127 Normal [facility] Monitor Record [id number] 100 [id number]#1.00 CD:127 Normal [facility] Monitor Record [id number] 100 [id number]#1.00 CD:127 Normal [facility] Monitor Record [id number] 100 [id number]#1.00 CD:127 Normal [facility] Monitor Record [id number] 100 [id number]#1.00 CD:127 Normal [facility] Monitor Record [id number] 100 [id number]#1.00 CD:127 Normal [facility] Phosphoruson 06-02-2021 Phosphate [Mass/Vol] 1.7 mg/dL Low 1.9-4.6 [facility] Comment on above: Performed By: #### 2 229688, 5378006, 6579699, 4816437, 66836645 #### [facility] [address] [place] [address] Progress Note - Pharmacyon 1 08-02-2020 Progress Note - Pharmacy Pharmacy Medication Review - ICU Patients I have personally reviewed this patient's current inpatient medication orders and will communicate any recommendations to the attending physician. IV antibiotic(s): No Day of therapy: No qualifying data available Mechanically ventilated: No Sedation: n/a Continuous infusion(s): Yes D5HN 150 mL/hr insulin 2.5 mL/hr Renal dose adjustment: No Estimated CrCl: 111.89 mL/min Adjusted medications: Candidate for IV to PO conversion: No Need for PO/OG/Gtube conversion?no Need for modification of dosing weight vs. measured weight (>10% variance)? no GI Ulcer Prophylaxis yes pantoprazole VTE Prophylaxis: heparin 5,000 units/mL Inj [F] Ordered by: Jocelyn LÓPEZ - 06/01/2021 1038 Below the Knee Intermittent Pneumatic Compression Device Ordered by: Jocelyn LÓPEZ - 06/01/2021 1038 Labs: ADMISSION LAB WORK 06/02/21 00:01 Glucose Cap: 192 mg/dL 06/02/21 00:01 POC Device SN: [id number] 06/02/21 00:01 POC User ID: [id number] 06/02/21 00:01 POC Username: POC Username 06/02/21 00:01 Glucose Cap: 192 mg/dL 06/02/21 00:01 POC Device SN: [id number] 06/02/21 00:01 POC User ID: [id number] 06/02/21 00:01 POC Username: POC Username 06/02/21 00:12 Creatinine: 0.8 mg/dL 06/02/21 00:12 Sodium Lvl: 132 mmol/L 06/02/21 00:12 Potassium Lvl: 3.8 mmol/L 06/02/21 00:12 Chloride: 104 mmol/L 06/02/21 00:12 CO2: 18 mmol/L 06/02/21 00:12 AGAP: 14 mEq/L 06/02/21 00:12 BUN: 17 mg/dL 06/02/21 00:12 eGFR AA: >60 mL/min/1.73 m2 06/02/21 00:12 eGFR: >60 mL/min/1.73 m2 06/02/21 00:12 Glucose Random: 184 mg/dL 06/02/21 00:12 BUN: 17 mg/dL 06/02/21 00:12 Creatinine: 0.8 mg/dL 06/02/21 00:12 Sodium Lvl: 132 mmol/L 06/02/21 00:12 Potassium Lvl: 3.8 mmol/L 06/02/21 00:12 Chloride: 104 mmol/L 06/02/21 00:12 CO2: 18 mmol/L 06/02/21 00:12 AGAP: 14 mEq/L 06/02/21 00:12 eGFR AA: >60 mL/min/1.73 m2 06/02/21 00:12 eGFR: >60 mL/min/1.73 m2 06/02/21 00:12 Glucose Random: 184 mg/dL 06/02/21 00:12 BUN: 17 mg/dL 06/02/21 00:12 Creatinine: 0.8 mg/dL 06/02/21 00:12 Sodium Lvl: 132 mmol/L 06/02/21 00:12 Potassium Lvl: 3.8 mmol/L 06/02/21 00:12 Chloride: 104 mmol/L 06/02/21 00:12 CO2: 18 mmol/L 06/02/21 00:12 AGAP: 14 mEq/L 06/02/21 01:01 Glucose Cap: 223 mg/dL 06/02/21 01:01 POC Device SN: [id number] 06/02/21 01:01 POC User ID: [id number] 06/02/21 01:01 POC Username: POC Username 06/02/21 01:01 Glucose Cap: 223 mg/dL 06/02/21 01:01 POC Device SN: [id number] 06/02/21 01:01 POC User ID: [id number] 06/02/21 01:01 POC Username: POC Username 06/02/21 02:03 Glucose Cap: 197 mg/dL 06/02/21 02:03 POC Device SN: [id number] 06/02/21 02:03 POC User ID: [id number] 06/02/21 02:03 POC Username: POC Username 06/02/21 02:03 Glucose Cap: 197 mg/dL 06/02/21 02:03 POC Device SN: [id number] 06/02/21 02:03 POC User ID: [id number] 06/02/21 02:03 POC Username: POC Username 06/02/21 03:03 Glucose Cap: 203 mg/dL 06/02/21 03:03 POC Device SN: [id number] 06/02/21 03:03 POC User ID: [id number] 06/02/21 03:03 POC Username: POC Username 06/02/21 03:03 Glucose Cap: 203 mg/dL 06/02/21 03:03 POC Device SN: [id number] 06/02/21 03:03 POC User ID: [id number] 06/02/21 03:03 POC Username: POC Username 06/02/21 04:02 Glucose Cap: 158 mg/dL 06/02/21 04:02 POC Device SN: [id number] 06/02/21 04:02 POC User ID: [id number] 06/02/21 04:02 POC Username: POC Username 06/02/21 04:02 Glucose Cap: 158 mg/dL 06/02/21 04:02 POC Device SN: [id number] 06/02/21 04:02 POC User ID: [id number] 06/02/21 04:02 POC Username: POC Username 06/02/21 04:30 Creatinine: 0.8 mg/dL 06/02/21 04:30 Calcium Lvl: 8.1 mg/dL 06/02/21 04:30 Sodium Lvl: 137 mmol/L 06/02/21 04:30 Potassium Lvl: 3.6 mmol/L 06/02/21 04:30 Chloride: 108 mmol/L 06/02/21 04:30 CO2: 21 mmol/L 06/02/21 04:30 AGAP: 12 mEq/L 06/02/21 04:30 BUN: 14 mg/dL 06/02/21 04:30 Glucose Lvl: 119 mg/dL 06/02/21 04:30 WBC: 7.4 E9/L 06/02/21 04:30 RBC: 4.4 E12/L 06/02/21 04:30 HGB: 14.1 gm/dL 06/02/21 04:30 Hct: 40.3 % 06/02/21 04:30 Neutro Auto: 44.2 % 06/02/21 04:30 Lymph Auto: 44.2 % 06/02/21 04:30 Ponce Auto: 8.9 % 06/02/21 04:30 Eos Auto: 1.9 % 06/02/21 04:30 Basophil Auto: 0.8 % 06/02/21 04:30 TSH: 1.79 mcIU/mL 06/02/21 04:30 eGFR AA: >60 mL/min/1.73 m2 06/02/21 04:30 eGFR: >60 mL/min/1.73 m2 06/02/21 04:30 Magnesium: 1.8 mg/dL 06/02/21 04:30 BUN: 14 mg/dL 06/02/21 04:30 Creatinine: 0.8 mg/dL 06/02/21 04:30 Sodium Lvl: 137 mmol/L 06/02/21 04:30 Potassium Lvl: 3.6 mmol/L 06/02/21 04:30 Chloride: 108 mmol/L 06/02/21 04:30 CO2: 21 mmol/L 06/02/21 04:30 AGAP: 12 mEq/L 06/02/21 04:30 BUN/Creat Ratio: 18 06/02/21 04:30 Calcium Lvl: 8.1 mg/dL 06/02/21 04:30 Glucose Lvl: 119 mg/dL 06/02/21 04:30 Chol: 161 mg/dL 06/02/21 04:30 Tri mg/dL 06/02/21 04:30 HDL: 24 mg/dL 06/02/21 04:30 LDL Direct: 68 mg/dL 06/02/21 04:30 VLDL: 62 mg/dL 06/02/21 04:30 TSH: 1.79 mcIU/mL 06/02/21 04:30 eGFR (more content not included)... Normal [facility] Progress Note-Physicianon Progress Note-Physician Assessment/Plan 1. DKA (diabetic ketoacidosis) (E11.10: Type 2 diabetes mellitus with ketoacidosis without coma) Pt. denies hx. of DM dx. -ABG: pH 7.24, PaCO2 20.2, PaO2 107.0, HCO3 13.0 on RA -A1c - 14.8% -DKA protocol -DC Insulin gtt. -> glucose uncontrolled w/ 10u, wt. based dosing -> increase to 20u BID and monitor overnight -DC IV fluids -> taking PO well -Q 4hr BMP - optimize K level -Clear liquids -> adv. as jovana. -Consult nuclear engineer & DM educator - pending -Pt. will need all DM supplies at d/c Ordered: Sbsq Hospital Care/Day Moderate 25 Minutes 14993 2. SOB (shortness of breath) (R06.02: Shortness of breath) 97% on RA -> ? anxiety vs. PE -CXR: no acute process -See below 3. D-dimer, elevated (R79.89: Other specified abnormal findings of blood chemistry) -COVID 19 - neg -CTA chest - No PE or acute chest proces -B/L LE DUS - (not avail on w/e) - pending 4. Hypokalemia (E87.6: Hypokalemia) Replete -Mag, phos level - pending -Trend labs 5. Hyponatremia (E87.1: Hypo-osmolality and hyponatremia) Corrected Na level -> 134 (hyperglycemia) -Trend labs 6. HTN (hypertension) (I10: Essential (primary) hypertension) Pt. reports diet controlled 7. IBS (irritable bowel syndrome) (K58.9: Irritable bowel syndrome without diarrhea) -PPI, miralax 8. GERD (gastroesophageal reflux disease) (K21.9: Gastro-esophageal reflux disease without esophagitis) -PPI 9. Chronic headache disorder (R51.9: Headache, unspecified) -Topiramate - pt. has not been filling for several mths 10. Depression (F32.A: Depression, unspecified) w/ hx. of PTSD per long-term records, ? Anxiety component -Mirtazapine - not filled in several mths -Sertraline 11. Hepatitis C (B19.20: Unspecified viral hepatitis C without hepatic coma) Completed Mavyret tx. 12. Marijuana use (F12.90: Cannabis use, unspecified, uncomplicated) Pt. states that he has a marijuana card -UDS -> neg 13. History of drug abuse (F19.11: Other psychoactive substance abuse, in remission) Pt. denies any other drug use -See above 14. History of transient ischemic attack (TIA) (Z86.73: Personal history of transient ischemic attack (TIA), and cerebral infarction without residual deficits) -Asa -Denies statin tx. -Lipid panel - cholesterol 161, triglycerides 312, HDL 24, LDL direct 68, VLDL 62 -Pt. request to try diet modifications prior to med tx. 15. Electrocution and nonfatal effects of electric current (T75.4XXA: Electrocution, initial encounter) Patient states that he was taken off of valproic acid for treatment of nerve pain and started on gabapentin - pt. states he has not taken in years 16. Obesity (E66.9: Obesity, unspecified) Educated on need for lifestyle mod. w/ goal of wt. loss 17. DVT prophylaxis (Z29.9: Encounter for prophylactic measures, unspecified) -Heparin sq with early ambulation Orders: insulin detemir, 10 unit(s), SubCutaneous, Daily, # 3 mL, Refills(s) 0, Pharmacy: [facility], 163, cm, 06/01/21 8:43:00 EST, Height/Length Dosing, 93.7, kg, 06/01/21 16:41:00 EST, Weight Dosing insulin detemir, 20 unit(s) = 0.2 mL, Injection-Insulin, SubCutaneous, BID, Routine, Start date 06/02/21 21:00:00 EST, 06/02/21 16:49:00 EST insulin lispro, 0-10 Units, SubCutaneous, QIDACHS, # 3 mL, Refills(s) 0, Pharmacy: [facility], 163, cm, 06/01/21 8:43:00 EST, Height/Length Dosing, 93.7, kg, 06/01/21 16:41:00 EST, Weight Dosing insulin lispro, 10 unit(s) = 0.1 mL, Injection-Insulin, SubCutaneous, Once, Stop date 06/02/21 17:00:00 EST, Routine, Start date 06/02/21 17:00:00 EST, 06/02/21 16:52:00 EST magnesium sulfate + Dextrose 5% in Water intravenous solution 100 mL, 1 gram = 100 mL, Soln-IV, IV Piggyback, Once, Stop date 06/02/21 11:00:00 EST, Routine, Start date 06/02/21 11:00:00 EST, 100 mL/hr, Infuse over 60 minute(s) potassium chloride, 40 mEq = 2 tab(s), Tab-ER, Oral, Once, Stop date 06/01/21 17:00:00 EST, Routine, Start date 06/01/21 17:00:00 EST, 06/01/21 16:48:00 EST potassium chloride, 40 mEq = 2 tab(s), Tab-ER, Oral, Once, Stop date 06/02/21 10:00:00 EST, Routine, Start date 06/02/21 10:00:00 EST, 06/02/21 9:18:00 EST potassium chloride, 20 mEq = 1 tab(s), Tab-ER, Oral, Once, Stop date 06/02/21 11:00:00 EST, Routine, Start date 06/02/21 11:00:00 EST, 06/02/21 11:00:00 EST potassium chloride, 20 mEq = 1 tab(s), Tab-ER, Oral, Once, Stop date 06/02/21 8:00:00 EST, Routine, Start date 06/02/21 8:00:00 EST, 06/02/21 7:06:00 EST potassium phosphate + Sodium Chloride 0.9% intravenous solution 250 mL, 15 mmol, 5 mL, Soln-IV, IV Piggyback, Once, Stop date 06/02/21 11:00:00 EST, Start date 06/02/21 11:00:00 EST, 63.75 mL/hr, Infuse over 4, hour(s), Total Vol (mL): 255 Add on Test Add on Test Ambulate with Assistance Automated Diff Basic Metabolic Panel CBC w/ Auto Diff Communication Order Physician to Nursing Communication Order Physician to Nursing (more content not included)... Normal [facility] Comment on above: Result Comment: Elec tronically Signed By: Jocelyn VALENCIA\.br\Date and Time Signed: 06/02/21 17:10 EST\.br\Electronically Co-Signed By: Sal DUEÑAS MD\.br\Date and Time Co-Signed: 06/02/21 18:21 EST TSH With T4fr Reflexon 06-02 TSH Qn 1.79 m[IU]/L Normal 0.34-5.60 [facility] Comment on above: Performed By: #### 2 711942, 5313987, 8187736 #### [facility] [address] [place] [address] eGFRon 06-02-2021 GFR/1.73 sq M.predicted among blacks MDRD (S/P/Bld) [Vol rate/Area] mL/min/{1.73_m2} Normal >=59 [facility] Comment on above: Order Comment: Order added by Discern Expert. Result Comment: eGFR is race adjusted. AA=. Performed By: #### 2 813949, 6521813, 4514681 #### [facility] [address] [place] [address] GFR/1.73 sq M.predicted among non-blacks MDRD (S/P/Bld) [Vol rate/Area] mL/min/{1.73_m2} Normal >=59 [facility] Comment on above: Order Comment: Order added by Discern Expert. Result Comment: Record Systems Analyst amira kidney disease could be indicated at eGFR's of less than 60 mL/min/1.73m2. Kidney failure is indicated at less than 15 mL/min/1.73m2. Performed By: #### 2 702291, 3391771, 8257495 #### [facility] [address] [place] [address] GFR/1.73 sq M.predicted among blacks MDRD (S/P/Bld) [Vol rate/Area] mL/min/{1.73_m2} Normal >=59 [facility] Comment on above: Order Comment: Order added by Discern Expert. Result Comment: eGFR is race adjusted. AA=. Performed By: #### 2 272259, 0553444, 2300416, 2902021, 63627475 #### [facility] [address] [place] [address] GFR/1.73 sq M.predicted among non-blacks MDRD (S/P/Bld) [Vol rate/Area] mL/min/{1.73_m2} Normal >=59 [facility] Comment on above: Order Comment: Order added by Discern Expert. Result Comment: Record Systems Analyst amira kidney disease could be indicated at eGFR's of less than 60 mL/min/1.73m2. Kidney failure is indicated at less than 15 mL/min/1.73m2. Performed By: #### 2 594200, 3230247, 5851440, 8362934, 48860170 #### [facility] [address] [place] [address] GFR/1.73 sq M.predicted among blacks MDRD (S/P/Bld) [Vol rate/Area] mL/min/{1.73_m2} Normal >=59 [facility] Comment on above: Order Comment: Order added by Discern Expert. Result Comment: eGFR is race adjusted. AA=. Performed By: #### 2 384059, 7144044, 6134655, 1314187, 27338355 #### [facility] [address] [place] [address] GFR/1.73 sq M.predicted among non-blacks MDRD (S/P/Bld) [Vol rate/Area] mL/min/{1.73_m2} Normal >=59 [facility] Comment on above: Order Comment: Order added by Discern Expert. Result Comment: Record Systems Analyst amira kidney disease could be indicated at eGFR's of less than 60 mL/min/1.73m2. Kidney failure is indicated at less than 15 mL/min/1.73m2. Performed By: #### 2 236501, 7567252, 9627115, 1092816, [id number] #### [facility] [address] [place] [address] GFR/1.73 sq M.predicted among blacks MDRD (S/P/Bld) [Vol rate/Area] mL/min/{1.73_m2} Normal >=59 [facility] Comment on above: Order Comment: Order added by Discern Expert. Result Comment: eGFR is race adjusted. AA=. Performed By: #### 2 241112, 8073536, 2336321 #### [facility] [address] [place] [address] GFR/1.73 sq M.predicted among non-blacks MDRD (S/P/Bld) [Vol rate/Area] mL/min/{1.73_m2} Normal >=59 [facility] Comment on above: Order Comment: Order added by Discern Expert. Result Comment: Record Systems Analyst amira kidney disease could be indicated at eGFR's of less than 60 mL/min/1.73m2. Kidney failure is indicated at less than 15 mL/min/1.73m2. Performed By: #### 2 995735, 6444909, 6467337 #### [facility] [address] [place] [address] GFR/1.73 sq M.predicted among blacks MDRD (S/P/Bld) [Vol rate/Area] mL/min/{1.73_m2} Normal >=59 [facility] Comment on above: Order Comment: Order added by Discern Expert. Result Comment: eGFR is race adjusted. AA=. Performed By: #### 2 [id number] #### [facility] [address] [place] [address] GFR/1.73 sq M.predicted among non-blacks MDRD (S/P/Bld) [Vol rate/Area] mL/min/{1.73_m2} Normal >=59 [facility] Comment on above: Order Comment: Order added by Discern Expert. Result Comment: Record Systems Analyst amira kidney disease could be indicated at eGFR's of less than 60 mL/min/1.73m2. Kidney failure is indicated at less than 15 mL/min/1.73m2. Performed By: #### 2 [id number] #### [facility] [address] [place] [address] Auto Diffon 06-01-2021 Basophils/100 WBC (Bld) 0.9 % Normal 0.0-2.0 [facility] Comment on above: Order Comment: Order Added by Discern Expert. Performed By: #### 2 978049, 3493774, 5281521, 6996895, 34761742 #### [facility] [address] [place] [address] Basophils/Leukocytes Auto (Bld) [Pure # fraction] 0.1 E9/L Normal 0.0-0.2 [facility] Comment on above: Order Comment: Order Added by Discern Expert. Performed By: #### 2 623045, 5560529, 5279237, 2413155, 95358282 #### [facility] [address] [place] [address] Eosinophils/100 WBC (Bld) 0.3 % Normal 0.0-8.0 [facility] Comment on above: Order Comment: Order Added by Joaquina Expert. Performed By: #### 2 147060, 9364433, 9817435, 2400649, 75465086 #### [facility] [address] [place] [address] Eosinophils/Leukocytes Auto (Bld) [Pure # fraction] 0.0 E9/L Normal 0.0-0.5 [facility] Comment on above: Order Comment: Order Added by Discern Expert. Performed By: #### 2 780676, 5724055, 2697732, 4094802, 36310583 #### [facility] [address] [place] [address] Lymphocytes/100 WBC (Bld) 22.7 % Normal 14.0-50.0 [facility] Comment on above: Order Comment: Order Added by Discern Expert. Performed By: #### 2 466620, 5382234, 5011429, 8939631, 91111444 #### [facility] [address] [place] [address] Lymphocytes/Leukocytes Auto (Bld) [Pure # fraction] 2.3 E9/L Normal 1.0-4.0 [facility] Comment on above: Order Comment: Order Added by Discern Expert. Performed By: #### 2 691460, 8846166, 5783929, 9545202, 62296869 #### [facility] [address] [place] [address] Monocytes/100 WBC (Bld) 6.9 % Normal 4.0-14.0 [facility] Comment on above: Order Comment: Order Added by Discern Expert. Performed By: #### 2 680925, 8415409, 5413860, 1061434, 83155670 #### [facility] [address] [place] [address] Monocytes/Leukocytes Auto (Bld) [Pure # fraction] 0.7 E9/L Normal 0.2-1.0 [facility] Comment on above: Order Comment: Order Added by Discern Expert. Performed By: #### 2 996817, 9708848, 7686609, 3946602, 50739532 #### [facility] [address] [place] [address] Neutrophils/100 WBC (Bld) 69.2 % Normal 36.0-75.0 [facility] Comment on above: Order Comment: Order Added by Discern Expert. Performed By: #### 2 455093, 8248452, 2181187, 1940214, 69066428 #### [facility] [address] [place] [address] Neutrophils/Leukocytes Auto (Bld) [Pure # fraction] 6.9 E9/L Normal 2.0-7.5 [facility] Comment on above: Order Comment: Order Added by Discern Expert. Performed By: #### 2 859741, 2328328, 9307220, 2596886, 85853759 #### [facility] [address] [place] [address] BMPon 06-01-2021 Creatinine [Mass/Vol] 1.2 mg/dL Normal 0.5-1.3 [facility] Comment on above: Performed By: #### 2 489921, 3288451, 9938722, 0994705, 52673231 #### [facility] [address] [place] [address] Urea nitrogen [Mass/Vol] 15 mg/dL Normal 5-21 [facility] Comment on above: Performed By: #### 2 293503, 3015786, 0593482, 4306809, 80488025 #### [facility] [address] [place] [address] Urea nitrogen/Creatinine [Mass ratio] 12 No Units Normal 10-20 [facility] Comment on above: Performed By: #### 2 256160, 9871142, 7044954, 7311301, 75691301 #### [facility] [address] [place] [address] Anion gap [Moles/Vol] 30 mmol/L High 6-16 [facility] Comment on above: Performed By: #### 2 709565, 9743195, 2402613, 4917731, 62634908 #### [facility] [address] [place] [address] Calcium [Mass/Vol] 9.3 mg/dL Normal 8.9-11.1 [facility] Comment on above: Performed By: #### 2 986318, 7259188, 0942237, 3366857, 84714009 #### [facility] [address] [place] [address] Chloride [Moles/Vol] 92 mmol/L Low 101-111 [facility] Comment on above: Performed By: #### 2 058669, 2087664, 7049047, 1976335, 18485381 #### [facility] [address] [place] [address] CO2 [Moles/Vol] 10 mmol/L Abnormal 21-31 [facility] Comment on above: Result Comment: Crit ical Result verified by repeat analysis\Critical Result S_CO2:10.0) Called to DR. ESPINO AT by NACHO CACERES and read back for confirmation at 06/01/2021 09:36:5 Performed By: #### 2 711900, 3821099, 1220224, 5587163, 72541186 #### [facility] [address] [place] [address] Glucose [Mass/Vol] 431 mg/dL High 55-199 [facility] Comment on above: Result Comment: If t his glucose result represents a fasting glucose, interpretation should refer to the following reference range: 55-99 mg/dL Performed By: #### 2 141871, 0732757, 5807965, 5553883, 74801852 #### [facility] [address] [place] [address] Potassium [Moles/Vol] 3.4 mmol/L Low 3.5-5.3 [facility] Comment on above: Performed By: #### 2 919188, 4614682, 9375133, 0108681, 50477903 #### [facility] [address] [place] [address] Sodium [Moles/Vol] 129 mmol/L Low 135-145 [facility] Comment on above: Performed By: #### 2 385651, 7077357, 1816088, 8838730, 04292415 #### [facility] [address] [place] [address] BOHBon 06-01-2021 Beta hydroxybutyrate [Moles/Vol] >7.76 High 0.02-0.27 [facility] Comment on above: Performed By: #### 2 843410, 2050695, 4502556, 8774989, 59013469 #### [facility] [address] [place] [address] BUNon 06-01-2021 Urea nitrogen [Mass/Vol] 14 mg/dL Normal - [facility] Comment on above: Performed By: #### 2 639199, 6359777, 0686532, 7709260, 75699586 #### [facility] [address] [place] [address] Urea nitrogen [Mass/Vol] 12 mg/dL Normal 12-07 [facility] Comment on above: Performed By: #### 2 431570, 6363703, 2070048 #### [facility] [address] [place] [address] Urea nitrogen [Mass/Vol] 12 mg/dL Normal 12-07 [facility] Comment on above: Performed By: #### 2 498512, 3058445, 0712848, 6289549, 05926987 #### [facility] [address] [place] [address] Urea nitrogen [Mass/Vol] 12 mg/dL Normal 12-07 [facility] Comment on above: Performed By: #### 2 931430, 5400645, 4545326 #### [facility] [address] [place] [address] Blood Gas Art, with Lytes, G jody, [place] 06-01-2021 a/A Ratio Art 87.40 % Normal >=0.80 [facility] Comment on above: Performed By: #### 2 491514, 3542461, 3190411 #### [facility] [address] [place] [address] AaDO2 Art 15.4 mmHg High 5.0-15.0 [facility] Comment on above: Performed By: #### 2 083373, 7745038, 7671128 #### [facility] [address] [place] [address] Allens Test Positive Normal [facility] Comment on above: Performed By: #### 2 239877, 2964302, 1981580 #### [facility] [address] [place] [address] Base Excess Arterial -16.0 mmol/L Low >=2.8 [facility] Comment on above: Performed By: #### 2 659293, 6483718, 9005723 #### [facility] Laboratory [address] [place] [address] cCa2+ Art 4.70 mg/dL Normal 4.40-5.30 [facility] Comment on above: Performed By: #### 2 701686, [id number], 9442410 #### [facility] [address] [place] [address] cCl- Art 101.0 mmol/L Normal 101.0-111.0 [facility] Comment on above: Performed By: #### 2 596649, 5629533, 8667647 #### [facility] [address] [place] [address] cGlu Art 384 mg/dL High 55-99 [facility] Comment on above: Performed By: #### 2 927938, 7663441, 9873057 #### [facility] [address] [place] [address] cK+ Art 3.5 mmol/L Normal 3.5-5.3 [facility] Comment on above: Performed By: #### 2 070074, 0803767, 4950290 #### [facility] [address] [place] [address] cLac Art 1.3 mmol/L Normal .5-2.2 [facility] Comment on above: Performed By: #### 2 983500, 1967909, 3193072 #### [facility] [address] [place] [address] fine craft artist+ Art 135.0 mmol/L Normal 135.0-145.0 [facility] Comment on above: Performed By: #### 2 372659, 8820961, 1728966 #### [facility] [address] [place] [address] Drawn by [employer] Invalid Interpretation Code [facility] Comment on above: Performed By: #### 2 511725, 9014106, 4061417 #### [facility] [address] [place] [address] FCOHb Art 1.2 % Low 1.5-4.9 [facility] Comment on above: Result Comment: Refe rence range Nonsmoker <1.5% Smoker <5.0% Heavy Smoker <9.0% Performed By: #### 2 178911, 3251681, 4998195 #### [facility] [address] [place] [address] FIO2 BG 21 Invalid Interpretation Code [facility] Comment on above: Performed By: #### 2 485154, 9516389, 8596179 #### [facility] [address] [place] [address] FMetHb Art 0.8 % Normal 0.0-1.9 [facility] Comment on above: Performed By: #### 2 568602, 3598813, 7080328 #### [facility] [address] [place] [address] FO2Hb Art 97.0 % Normal 93.0-100.0 [facility] Comment on above: Performed By: #### 2 092807, 4223960, 9543442 #### [facility] [address] [place] [address] HCO3 (Bld) [Moles/Vol] 13.0 mmol/L Low 22.0-26.0 [facility] Comment on above: Performed By: #### 2 749457, 6343730, 1685270 #### [facility] [address] [place] [address] Hemoglobin (Bld) [Mass/Vol] 16.2 g/dL Normal 12.0-17.0 [facility] Comment on above: Performed By: #### 2 888514, 4429391, 1643028 #### [facility] [address] [place] [address] Oxygen saturation in Blood 98.9 % Normal 95.0-100.0 [facility] Comment on above: Performed By: #### 2 270227, 3670454, 0874170 #### [facility] [address] [place] [address] P CO2 Arterial 20.2 mmHg Abnormal 35.0-45.0 [facility] Comment on above: Result Comment: Resu lts Called To SHAE ESPINO By JOHNNY CORNELL_ And Read Back For Confirmation On 06/01/2021 10:12:21 EST_. Performed By: #### 2 282379, 8747198, 7547728 #### [facility] [address] [place] [address] P O2 Arterial 107.0 mmHg High 80.0-100.0 [facility] Comment on above: Performed By: #### 2 427643, 5377298, 9154960 #### [facility] [address] [place] [address] pH Arterial 7.248 Abnormal 7.350-7.450 [facility] Comment on above: Result Comment: Resu lts Called To SHAE ESPINO By JOHNNY CORNELL_ And Read Back For Confirmation On 06/01/2021 10:12:21 EST_. Performed By: #### 2 936362, 6202617, 5475384 #### [facility] [address] [place] [address] Sample Site R Radial Normal [facility] Comment on above: Performed By: #### 2 944766, 8190806, 9129979 #### [facility] [address] [place] [address] Sample Type Arterial Draw Normal [facility] Comment on above: Performed By: #### 2 858710, 1441258, 0438897 #### [facility] [address] [place] [address] CBC w/ Auto Diffon Erythrocyte distribution width (RBC) [Ratio] 13.2 % Normal 10.9-14.2 [facility] Comment on above: Performed By: #### 2 623088, 1214677, 1636231, 5499473, 96150328 #### [facility] [address] [place] [address] Hematocrit (Bld) [Volume fraction] 50.8 % High 37.7-49.0 [facility] Comment on above: Performed By: #### 2 420579, 7912384, 6902077, 1813589, 61751672 #### [facility] [address] [place] [address] Hemoglobin (Bld) [Mass/Vol] 17.6 g/dL High 13.5-17.5 [facility] Comment on above: Performed By: #### 2 745183, 1903218, 9780295, 9114374, 54772093 #### [facility] [address] [place] [address] MCH (RBC) [Entitic mass] 32.2 pg Normal 27.0-34.0 [facility] Comment on above: Performed By: #### 2 398912, 1866933, 2642770, 1579021, 23583923 #### [facility] [address] [place] [address] MCHC (RBC) [Mass/Vol] 34.6 g/dL Normal 31.4-36.0 [facility] Comment on above: Performed By: #### 2 511957, 0262947, 8830932, 2119254, 68633357 #### [facility] [address] [place] [address] MCV (RBC) [Entitic vol] 93.2 fL Normal 80.0-100.0 [facility] Comment on above: Performed By: #### 2 733755, 3129423, 8094769, 3753766, 18095871 #### [facility] [address] [place] [address] Platelet mean volume (Bld) [Entitic vol] 8.2 fL Normal 6.4-10.8 [facility] Comment on above: Performed By: #### 2 547400, 3747172, 9905307, 0270205, 02256053 #### [facility] [address] [place] [address] Platelets (Bld) [#/Vol] 225.0 E9/L Normal 150.0-500.0 [facility] Comment on above: Performed By: #### 2 476004, 8982768, 4264362, 4599879, 11957571 #### [facility] [address] [place] [address] RBC (Bld) [#/Vol] 5.4 E12/L Normal 4.3-5.9 [facility] Comment on above: Performed By: #### 2 084978, 4644825, 9728184, 0347069, 74261284 #### [facility] [address] [place] [address] WBC corrected for nucl RBC Auto (Bld) [#/Vol] 10.0 E9/L Normal 4.0-11.0 [facility] Comment on above: Performed By: #### 2 296728, 5417227, 0704106, 2608057, 54786361 #### [facility] [address] [place] [address] COVID-19 ([facility])on 06-01-2021 SARS-CoV-2 (COVID-19) RNA MARIPOSA+probe Ql (Resp) Not detected Normal Not Detected [facility] Comment on above: Result Comment: This test result should be correlated with clinical presentations and medical history by a healthcare provider to determine its clinical significance. This assay was performed by a reverse transcriptase real-time polymerase chain reaction (rt PCR) method on the eMeter system. This test has been authorized only for the detection of nucleic acid from SARS-CoV-2, not for any other viruses or pathogens. This test has not been FDA cleared or approved. This test has been authorized by FDA under an Emergency Use Authorization (EUA). This test is only authorized for the duration of time the declaration on that circumstances exist justifying the authorization emergency use of in vitro diagnostic tests for detection and/or diagnosis of COVID-19 infection under section 564 (b) (1) of the Act, 21 U.S.C. 360 bbb-3 (b) (1), unless authorization is terminated or revoked sooner. Performed By: #### 2 [id number] #### [facility] [address] [place] [address] SARS-CoV-2 (COVID-19) RNA MARIPOSA+probe Ql (Unsp spec) Pass Normal Pass [facility] Comment on above: Performed By: #### 2 [id number] #### [facility] [address] [place] [address] Specimen source Nom (Unsp spec) Nasal Normal [facility] Comment on above: Performed By: #### 2 [id number] #### [facility] [address] [place] [address] Employed in Healthcare NO Normal [facility] Comment on above: Performed By: #### 2 [id number] #### [facility] [address] [place] [address] [facility] Comment on above: Performed By: #### 2 [id number] #### [facility] [address] [place] [address] Hospitalized? NO Normal [facility] Comment on above: Performed By: #### 2 [id number] #### [facility] [address] [place] [address] ICU NO Normal [facility] Comment on above: Performed By: #### 2 [id number] #### [facility] [address] [place] [address] ? NO Normal [facility] Comment on above: Performed By: #### 2 [id number] #### [facility] [address] [place] [address] Resides in a Congrega Care Setting NO Normal [facility] Comment on above: Performed By: #### 2 [id number] #### [facility] [address] [place] [address] Symptomatic as defined by CDC YES Normal [facility] Comment on above: Performed By: #### 2 [id number] #### [facility] [address] [place] [address] CRPon 06-01-2021 CRP [Mass/Vol] 1.1 mg/dL Normal <=1.9 [facility] Comment on above: Performed By: #### 2 007230, 0089745, 9123574, 0583741, 99220243 #### [facility] [address] [place] [address] CTA Cheston 06-01-2021 CTA Chest Exam Date/Time: 06/01/2021 11:31 EST Reason for Exam: PE suspected, low/intermediate prob, positive D-dimer;Other (please specify) Report IMPRESSION: NO CT EVIDENCE OF PULMONARY EMBOLISM. NO ACUTE CHEST ABNORMALITY IS EVIDENT. CLINICAL HISTORY: PE suspected, low/intermediate prob, positive D-dimer. COMMENT: Axial images were obtained after the rapid injection of IV contrast with narrow collimation and reconstructed at a narrow interval. Coronal and sagittal reconstructions were performed. On the PACS, images were reviewed in cine display and using MIP postprocessing. The pulmonary arteries are contrast opacified and no intraluminal filling defects are noted. The thoracic aorta is normal in diameter, without evidence of aneurysm or dissection. The heart is normal in size. No pericardial effusion is noted. There is no mediastinal nor hilar lymphadenopathy. There are minimal atelectatic changes in the lungs. No infiltration, no lung mass, nor pleural effusion is evident. There is a low-attenuation nodule in the posterior inferior right thyroid lobe, with a greatest diameter of 1.6 cm. Of incidental note, there are surgical clips at the gallbladder fossa, from prior cholecystectomy. All CT scans at this facility use dose modulation, iterative reconstruction, and/or weight based dosing when appropriate to reduce radiation dose to as low as reasonably achievable. FINAL REPORT Dictated: 06/01/2021 12:13 pm Candy M.D., Law L Signed (Electronic Signature): 06/01/2021 12:13 pm Signed by: Law Gupta M.D. Transcribed by: YOCASTA Technologist: JURGEN Technical Comments GFR (mL/min/1/73m2) >60 Contrast: Isovue 370 Contrast amount in ml's: 52 Normal [facility] Capillary Glucose POCon 05-20 Glucose [Mass/Vol] 210 mg/dL High 55-99 [facility] Comment on above: Result Comment: Billie yao RN/ Performed By: #### 2 [id number] #### [facility] [address] [place] [address] Glucose [Mass/Vol] 246 mg/dL High [address] [place] [address] Comment on above: Result Comment: Billie TORRES Performed By: #### 2 541452, 5770475, 0623695, 2684949, 40785849 #### [facility] [address] [place] [address] Glucose [Mass/Vol] 282 mg/dL High -[address] [place] [address] Comment on above: Result Comment: Billie yao RN/ Performed By: #### 2 688886, 2846716, 0151918, 2776438, 35354944 #### [facility] [address] [place] [address] Glucose [Mass/Vol] 184 mg/dL High [address] Comment on above: Result Comment: Billie TORRES Performed By: #### 2 [id number] #### [facility] [address] [place] [address] Glucose [Mass/Vol] 269 mg/dL High 55-99 [facility] Comment on above: Performed By: #### 2 827628, 7347105, 2748783 #### [facility] [address] [place] [address] Glucose [Mass/Vol] 403 mg/dL High 55-99 [facility] Comment on above: Result Comment: Billie TORRES Performed By: #### 2 568147, 8136873, 9744719 #### [facility] [address] [place] [address] Glucose [Mass/Vol] 314 mg/dL High 55-99 [facility] Comment on above: Performed By: #### 2 [id number] #### [facility] [address] [place] [address] Glucose [Mass/Vol] 349 mg/dL High 55-99 [facility] Comment on above: Result Comment: Repe at Test Performed By: #### 2 148578, 9929959, 9332146 #### [facility] [address] [place] [address] Glucose [Mass/Vol] 258 mg/dL High 55-99 [facility] Comment on above: Result Comment: Billie yao RN/ Performed By: #### 2 [id number] #### [facility] [address] [place] [address] Consent for Treatmenton 05-20 Consent for Treatment [id number] D:127 Normal [facility] Creatinineon 06-01-2021 Creatinine [Mass/Vol] 0.8 mg/dL Normal 0.5-1.3 [facility] Comment on above: Performed By: #### 2 597117, 0350003, 0424173, 0477223, 35332256 #### [facility] [address] [place] [address] Creatinine [Mass/Vol] 1.0 mg/dL Normal 0.5-1.3 [facility] Comment on above: Performed By: #### 2 120581, 4259643, 3765825 #### [facility] [address] [place] [address] Creatinine [Mass/Vol] 1.0 mg/dL Normal 0.5-1.3 [facility] Comment on above: Performed By: #### 2 996388, 0519291, 6503693, 4437960, 34576184 #### [facility] [address] [place] [address] Creatinine [Mass/Vol] 1.1 mg/dL Normal 0.5-1.3 [facility] Comment on above: Performed By: #### 2 098518, 0710007, 9715282 #### [facility] [address] [place] [address] D-Dimeron 06-01-2021 Fibrin D-dimer FEU (PPP) [Mass/Vol] 701 [id number] Abnormal 215-500 [facility] Comment on above: Result Comment: Resu lts Called To Jo Love (ED) By DEXTER And Read Back For Confirmation On 06/01/2021 09:37:26 EST Results Verified By Repeat Analysis. This assay is intended for use as an aid in the diagnosis of DVT or PE. These conditions cannot be excluded with certainty solely on the basis of a D-dimer concentration being within the reference range This D-Dimer assay may be used in conjunction with a non-high clinical pretest probability assessment to exclude deep-vein thrombosis(DVT). For exclusion of venous thrombosis or pulmonary embolism the analyte D-Dimer should not be used as an aid in patients with: Therapeutic dose anticoagulant therapy for >24 hours Fibrinolytic therapy within previous 7 days Trauma or surgery within previous 4 weeks Disseminated malignacies Aortic aneurysm Sepsis, severe infections, pneumonia, severe skin infections Liver cirrhosis Performed By: #### 2 874528, 5031866, 6038536 #### [facility] [address] [place] [address] ED Clinical Summaryon 2020 ED Clinical Summary (Inserted Image. Julieta ble to display) [address] [address] ED Clinical Summary Person Information Name: LEO HUSSEIN [place] Age: 50 Years : 1970 Sex: Male Language: Burundian PCP: RON IVORY MD Marital Status: Single Visit Id: Visit Reason: Shortness of breath; DKA Speciality: Acuity: 3 Enc Type: Observation Med Service: Medical Arrival: 06/01/2021 08:10:28 Discharge: LOS: 000 07:30 Checkin: 06/01/2021 08:10:28 Checkout: 06/01/2021 15:40:10 Dispo Type: Admit to [facility] EVENTS: Event Name Event Status Request Date/Time Start Date/Time Complete Date/Time Arrive Complete 06/01/2021 08:10:28 06/01/2021 08:10:28 06/01/2021 08:10:28 Document Home Meds Request 06/01/2021 08:10:28 Triage Complete 06/01/2021 08:10:28 06/01/2021 08:43:12 06/01/2021 08:43:12 Bed Assign Complete 06/01/2021 08:16:39 06/01/2021 08:16:39 06/01/2021 08:16:39 Dr Exam Complete 06/01/2021 08:16:39 06/01/2021 08:25:44 06/01/2021 08:25:44 RN Exam Complete 06/01/2021 08:16:39 06/01/2021 09:51:28 06/01/2021 09:51:28 EKG Complete 06/01/2021 08:18:54 06/01/2021 08:23:05 Registration Complete 06/01/2021 08:25:44 06/01/2021 08:55:16 06/01/2021 08:55:16 Dr Exam Complete 06/01/2021 08:30:01 06/01/2021 08:30:01 06/01/2021 08:30:01 Meds Admin Complete 06/01/2021 08:37:06 06/01/2021 09:23:51 Pending Labs Inlab 06/01/2021 08:37:06 Lab Inlab 06/01/2021 08:37:06 Urine Collect Complete 06/01/2021 08:37:07 06/01/2021 10:39:42 Patient Care Request 06/01/2021 08:37:07 X-Ray Complete 06/01/2021 08:37:07 06/01/2021 09:00:56 06/01/2021 09:41:37 Pending Labs Complete 06/01/2021 08:38:45 06/01/2021 09:37:31 Lab Complete 06/01/2021 08:38:45 06/01/2021 09:37:31 Patient Care Request 06/01/2021 08:43:13 Patient Isolation Request 06/01/2021 08:43:13 Reg Complete Request 06/01/2021 08:55:16 Pending Labs Cancel 06/01/2021 09:17:09 06/01/2021 09:19:04 Lab Cancel 06/01/2021 09:17:09 06/01/2021 09:19:04 Pending Labs Complete 06/01/2021 09:17:19 06/01/2021 09:17:19 06/01/2021 09:47:26 Lab Complete 06/01/2021 09:17:19 06/01/2021 09:17:19 06/01/2021 09:47:26 Pending Labs Complete 06/01/2021 09:19:46 06/01/2021 09:19:46 06/01/2021 10:51:23 Lab Complete 06/01/2021 09:19:46 06/01/2021 09:19:46 06/01/2021 10:51:23 Pending Labs Complete 06/01/2021 09:20:12 06/01/2021 09:20:12 06/01/2021 09:20:22 Lab Complete 06/01/2021 09:20:12 06/01/2021 09:20:12 06/01/2021 09:20:22 Pending Labs Cancel 06/01/2021 09:35:20 06/01/2021 12:44:13 Lab Cancel 06/01/2021 09:35:20 06/01/2021 12:44:13 Meds Admin Request 06/01/2021 09:39:11 Wet Read Complete 06/01/2021 09:41:37 06/01/2021 09:49:50 06/01/2021 09:49:50 Pending Labs Complete 06/01/2021 09:41:37 06/01/2021 14:07:27 Lab Complete 06/01/2021 09:41:37 06/01/2021 14:07:27 Pending Labs Complete 06/01/2021 09:48:10 06/01/2021 10:12:25 RT Tx/ABG Complete 06/01/2021 09:48:10 06/01/2021 10:16:22 06/01/2021 10:16:22 Consult Request 06/01/2021 09:48:21 Hospitalist Consult Request 06/01/2021 09:48:21 Pending Labs Complete 06/01/2021 10:02:43 06/01/2021 10:02:43 06/01/2021 10:02:43 Meds Admin Request 06/01/2021 10:06:39 Pending Labs Request 06/01/2021 10:06:39 Lab Request 06/01/2021 10:06:39 Patient Care Request 06/01/2021 10:06:39 Bed Request Request 06/01/2021 10:07:21 Reg Bed Request Request 06/01/2021 10:07:21 Admit Request 06/01/2021 10:07:21 Patient Care Request 06/01/2021 10:30:11 Patient Care Request 06/01/2021 10:39:40 Pending Labs Request 06/01/2021 10:39:40 Lab Request 06/01/2021 10:39:40 Urine Collect Cancel 06/01/2021 10:39:40 06/01/2021 11:56:11 Meds Admin Request 06/01/2021 10:39:40 RT Request 06/01/2021 10:39:40 RT Tx/ABG Request 06/01/2021 10:39:40 Bed Request Request 06/01/2021 10:39:40 Reg Bed Request Request 06/01/2021 10:39:40 Admit Request 06/01/2021 10:39:40 CT Complete 06/01/2021 10:46:32 06/01/2021 10:57:54 06/01/2021 11:31:26 Pending Labs Complete 06/01/2021 10:47:03 06/01/2021 10:47:03 06/01/2021 13:37:18 Meds Admin Complete 06/01/2021 10:54:38 06/01/2021 11:54:42 Pending Labs Complete 06/01/2021 11:09:36 06/01/2021 12:34:41 Lab Complete 06/01/2021 11:09:36 06/01/2021 12:34:41 Urine Collect Complete 06/01/2021 11:09:36 06/01/2021 12:34:41 Pending Labs Request 06/01/2021 11:12:57 Lab Request 06/01/2021 11:12:57 Meds Admin Request 06/01/2021 11:12:57 Consult Request 06/01/2021 11:19:00 Pending Labs Complete 06/01/2021 12:00:32 06/01/2021 12:00:32 06/01/2021 12:00:32 Pending Labs Cancel 06/01/2021 12:22:22 06/01/2021 12:22:22 06/01/2021 12:42:21 Lab Cancel 06/01/2021 12:22:22 06/01/2021 12:22:22 06/01/2021 12:42:21 Pending Labs Cancel 06/01/2021 12:40:00 06/01/2021 12:43:17 Lab Cancel 06/01/2021 12:40:00 06/01/2021 12:43:17 Pending Labs Cancel 06/01/2021 12:42:57 06/01/2021 14:22:15 Lab Cancel 06/01/2021 12:42:57 06/01/2021 14:22:1 (more content not included)... Normal [facility] ED Note-Physicianon 06-01-20 ED Note-Physician Basic Information Time Seen: Kayla Barcenas PA-C 06/01/2021 08:25 Chief Complaint Pt came from home shortness of breath and thirst. History of Present Illness This patient presents emergency department chief complaint of tongue swelling, frequently drinking water, dry mouth, frequent urination, and concern for possible diabetes. The patient states he has been trying to get in to see his doctor but they have not been able to find a time that works for both of them. The patient smokes marijuana on a regular basis and states he recently quit because of just not feeling well. He denies tobacco use. He denies any alcohol use. He denies any street drug use. He states he was recently in intermediate and is on probation. The patient denies any fevers, chills, sweats. He denies any constipation or diarrhea. He denies any abdominal pain. He denies any chest pain. He does feel short of breath. He states he has also had weight loss. He thinks he has lost approximately 30 pounds in the last several months. He states that this was not a planned weight loss. The patient adamantly refuses any consideration of a Covid test. Review of Systems Constitutional: Denies weight loss, fevers, chills, sweats, malaise. + weight loss 30 pounds in the last 2 months Eyes: Denies visual changes, eye pain, double vision, scotomas, floaters ENT: Denies runny nose, epistaxis, sinus pain, ear pain, ringing in ears, tooth ache, sore throat, pain with swallowing Cardiovascular: Denies chest pain, orthopnea, edema, palpitations, loss of consciousness, claudication. + shortness of breath Respiratory: Denies cough, sputum production, wheezing, hemoptysis, shortness of breath, dyspnea on exertion Gastrointestinal: Denies abdominal pain, unintentional weight loss, difficulty swallowing, indigestion, bloating, cramping, loss of appetite, nausea, vomiting, diarrhea, constipation, hematochezia, melena. + polydipsia Genitourinary: Denies any incontinence of urine, dysuria, hematuria, nocturia, hesitancy, frequency, urgency, burning. + polyuria Musculoskeletal: Denies joint pain, morning stiffness, joint swelling, decreased range of motion, crepitus Integumentary: Denies any pruritus, rashes, lesions, wounds, petechiae Neurologic: Denies any changes in sight, smell, hearing, taste, seizures, headache, paresthesia, numbness, weakness, balance disturbance Psychiatric denies any depression, change in sleep patterns, anxiety, difficulty concentrating, paranoia, anhedonia, lack of energy, bonnie Hematologic/lymphatic: Denies any purpura, petechiae, excessive bleeding, bruising Physical Exam Vitals & Measurements T: 37 ?C (Oral) HR: 95(Monitored) RR: 10 BP: 138/94 SpO2: 98% HT: 163 cm HT: 163.0 cm Vital signs and nursing notes reviewed. General: Awake, alert, NAD. HEENT: Head is normocephalic, atraumatic. PERRL. EOMI. Sclerae are anicteric. External ears are normal. TMs are intact bilaterally. Canals are clear bilaterally. Nares are patent bilaterally. Oral mucosa is pink and moist. No lesions noted. Tongue protrudes in midline. Uvula rises with phonation. Neck is supple, no no palpable adenopathy. No JVD. Trachea is midline. Thorax: Symmetrical rise and fall Lungs: Clear to auscultation throughout all lawrence, no wheezes, no crackles Heart: Regular rate and rhythm. No murmur, gallop, or rub Abdomen: No tenderness on palpation. Bowel sounds are present active and normal. No organomegaly. No palpable masses. No CVA tenderness. Extremities: Motor sensory pulses intact x4 extremities. No lower extremity edema. Skin: No lesions, rashes, ulcerations. No bruising or petechiae. Color appropriate, warm and dry Neuro: No oriented x3, no focal neuro deficits Psych: Mood and affect are normal Procedure critical care time 35 minutes Medical Decision Making Electrolyte imbalance, dehydration, COVID-19, pulmonary embolism, AMI, diabetes mellitus, water intoxication Assessment/Plan 1. DKA (diabetic ketoacidosis) (E11.10: Type 2 diabetes mellitus with ketoacidosis without coma) 2. SOB (shortness of breath) (R06.02: Shortness of breath) 3. D-dimer, elevated (R79.89: Other specified abnormal findings of blood chemistry) 4. Hypokalemia (E87.6: Hypokalemia) 5. Hyponatremia (E87.1: Hypo-osmolality and hyponatremia) 6. HTN (hypertension) (I10: Essential (primary) hypertension) 7. IBS (irritable bowel syndrome) (K58.9: Irritable bowel syndrome without diarrhea) 8. GERD (gastroesophageal reflux disease) (K21.9: Gastro-esophageal reflux disease without esophagitis) 9. Chronic headache disorder (R51.9: Headache, unspecified) 10. Depression (F32.A: Depression, unspecified) 11. Hepatitis C (B19.20: Unspecified viral hepatitis C without hepatic coma) 12. Marijuana use (F12.90: Cannabis use, unspecified, uncomplicated) 13. History of drug abuse (F19.11: Other psychoactive substance abuse, in remission) 14. History of transient ischemic attack (TIA) (Z86.73: Personal history of transien (more content not included)... Normal [facility] Comment on above: Result Comment: Elec tronically Signed By: Kayla Barcenas PA-C\.br\Date and Time Signed: 06/01/21 11:31 EST\.br\Electronically Co-Signed By: Shae Espino DO\.br\Date and Time Co-Signed: 06/01/21 17:26 EST ED Patient Education Noteon 06-01-2021 ED Patient Education Note Normal [facility] ED Patient Summaryon 021 ED Patient Summary (Inserted Image. Julieta ble to display) [place] [address] Patient Discharge Instructions Person Information Name: LEO HUSSEIN Age: 50 Years Arrival Date: 06/01/2021 08:10:28 Discharge Diagnosis: 1:DKA (diabetic ketoacidosis); 2:SOB (shortness of breath); 3:D-dimer, elevated; 4:Hypokalemia; 5:Hyponatremia; 6:HTN (hypertension); 7:IBS (irritable bowel syndrome); 8:GERD (gastroesophageal reflux disease); 9:Chronic headache disorder; 10:Depression; 11:Hepatitis C; 12:Marijuana use; 13:History of drug abuse; 14:History of transient ischemic attack (TIA); 15:Electrocution and nonfatal effects of electric current; 16:DVT prophylaxis; Other chronic pain Primary Care Physician: RON IVORY MD Provider Information Primary Provider: Shae Espino DO Advanced Bottom Scrubber:None The exam and treatment you received in the Emergency Department were for an urgent problem and are not intended as complete care. It is important that you follow up with a doctor, nurse practitioner, or physician?s librarian assistant for ongoing care. If your symptoms become worse or you do not improve as expected and you are unable to reach your usual health care provider, you should return to the Emergency Department. We are available 24 hours a day. LEO HUSSEIN has been given the following list of patient education materials, prescriptions and follow-up instructions: Follow-up Instructions: In the event that this physician does not participate in your insurance network, please consult with your insurance company to find a nearby participating provider. Patient Education Materials: A MESSAGE TO ALL PATIENTS REGARDING OPIOIDS PRESCRIPTION OPIOIDS: WHAT YOU NEED TO KNOW Prescription opioids can be used to help relieve nzuwlkax-ej-oocjxi pain and are often prescribed following a surgery or injury, or for certain health conditions. These medications can be an important part of the treatment but also come with serious risks. It is important to work with your healthcare provider to make sure you are getting the safest, most effective care. WHAT ARE THE RISKS AND SIDE EFFECTS OF OPIOID USE? Prescription opioids carry serious risks of addiction and overdose, especially with prolonged use. An opioid overdose, often marked by slowed breathing, can cause sudden . The use of prescription opioids can have a number of side effects as well, even when taken as directed: ? Tolerance?meaning you might need to take more of the medication for the same pain relief ? Physical dependence?meaning you have symptoms of withdrawal when a medication is stopped ? Increased sensitivity to pain ? Constipation ? Nausea, vomiting, and dry mouth ? Sleepiness and dizziness ? Confusion ? Depression ? Low levels of testosterone that can result in lower sex drive, energy, and strength ? Itching and sweating RISKS ARE GREATER WITH: ? History of drug misuse, substance use disorder, or overdose ? Mental health conditions (such as depression or anxiety) ? Sleep apnea ? Older age (65 years and older) ? Avoid alcohol while taking prescription opioids. Also, unless specifically advised by your health care provider, medications to avoid include: ? Benzodiazepines (such as Xanax or Valium) ? Muscle relaxants (such as Soma or Flexeril) ? Hypnotics (such as Ambien or Lunesta) ? Other prescription opioids KNOW YOUR OPTIONS Talk to your health care provider about ways to manage your pain that don?t involve prescription opioids. Some of these options may actually work better and have fewer risks and side effects. Options may include: ? Pain relievers such as acetaminophen, ibuprofen, and naproxen ? Some medication that are also used for depression or seizures ? Physical therapy and exercise ? Cognitive behavioral therapy, a psychological, goal-directed approach, in which patients learn how to modify physical, behavioral, and emotional triggers of pain and stress. IF YOU ARE PRESCRIBED OPIOIDS FOR PAIN: ? Never take opioids in greater amounts or more often than prescribed. ? Follow up with your primary health care provider. o Work together to create a plan on how to manage your pain. o Talk about ways to help manage your pain that don?t involve prescription opioids. o Talk about any and all concerns and side effects. ? Help prevent misuse and abuse o Never sell or share prescription opioids. o Never use another person?s prescription opioids. ? Store prescription opioids in a secure place and out of reach of others (this may include visitors, children, friends, and family). ? Safely dispose of unused prescription opioids: Find your community drug take-back program or your pharmacy mail-back program, or flush them down the toilet, following guidance from the Food and Drug Administration (www.fda.gov/Drugs/Reso urcesForYou). ? Vis (more content not included)... Normal [facility] Glucoseon 06-01-2021 Glucose [Mass/Vol] 231 mg/dL High 55-199 [facility] Comment on above: Performed By: #### 2 214016, 8548238, 4829941, 1556075, 04687658 #### [facility] [address] [place] [address] Glucose [Mass/Vol] 382 mg/dL High 55-199 [facility] Comment on above: Performed By: #### 2 453049, 2352048, 2090584 #### [facility] [address] [place] [address] Glucose [Mass/Vol] 240 mg/dL High 55-199 [facility] Comment on above: Performed By: #### 2 364874, 7339915, 2369908, 2192948, 57345335 #### [facility] [address] [place] [address] Glucose [Mass/Vol] 263 mg/dL High 55-199 [facility] Comment on above: Performed By: #### 2 075341, 5604066, 9777850 #### [facility] [address] [place] [address] Hep Func Panelon 06-01-2021 Albumin [Mass/Vol] 4.5 g/dL Normal 3.3-5.0 [facility] Comment on above: Performed By: #### 2 063653, 9976852, 5236876, 1524930, 66389907 #### [facility] [address] [place] [address] Albumin/Globulin (S) [Mass conc ratio] 1.1 Normal 1.1-2.2 [facility] Comment on above: Performed By: #### 2 811533, 5055039, 1409551, 5564777, 99042610 #### [facility] [address] [place] [address] ALP [Catalytic activity/Vol] 68 Int._Unit/L Normal 21-98 [facility] Comment on above: Performed By: #### 2 084738, 6373173, 9510795, 8658836, 37392212 #### [facility] [address] [place] [address] ALT No additional P-5'-P [Catalytic activity/Vol] 25 Int._Unit/L Normal 6-46 [facility] Comment on above: Performed By: #### 2 371357, 4504433, 8950038, 3597693, 83238148 #### [facility] [address] [place] [address] AST [Catalytic activity/Vol] 21 Int._Unit/L Normal 5-43 [facility] Comment on above: Performed By: #### 2 750638, 2016722, 9009085, 3299058, 88744597 #### [facility] [address] [place] [address] Bilirubin [Mass/Vol] 1.8 mg/dL High 0.0-1.1 [facility] Comment on above: Performed By: #### 2 099359, 7526694, 6902869, 2336056, 70702666 #### [facility] [address] [place] [address] Bilirubin.direct [Mass/Vol] 0.2 mg/dL Normal 0.1-0.4 [facility] Comment on above: Performed By: #### 2 343382, 3975693, 5186988, 3664294, 52430674 #### [facility] [address] [place] [address] Bilirubin.indirect [Mass or moles/Vol] 1.6 mg/dL High 0.1-0.9 [facility] Comment on above: Performed By: #### 2 925175, 6873500, 5250570, 0561400, 09621101 #### [facility] [address] [place] [address] Globulin (S) [Mass/Vol] 4.1 g/dL High 1.4-4.0 F [facility] Comment on above: Performed By: #### 2 820681, 7077017, 5391036, 4714226, 09767564 #### [facility] [address] [place] [address] Protein [Mass/Vol] 8.6 g/dL High 6.0-7.8 [facility] Comment on above: Performed By: #### 2 432605, 3945285, 3574458, 6767804, 14958690 #### [facility] [address] [place] [address] LDHon 06-01-2021 LDH [Catalytic activity/Vol] 156 Int._Unit/L Normal 93-218 [facility] Comment on above: Performed By: #### 2 185623, 7730023, 8520904, 5813656, 98277842 #### [facility] [address] [place] [address] Lactic Acidon 06-01-2021 Lactate [Mass/Vol] 2.0 mmol/L Normal 0.5-2.2 [facility] Comment on above: Performed By: #### 2 516862, 8648797, 5155012, 9046225, 44054606 #### [facility] [address] [place] [address] Lipase Levelon 06-01-2021 Lipase [Catalytic activity/Vol] 35 U/L Normal 13-58 [facility] Comment on above: Performed By: #### 2 824942, 8202258, 5782254, 9499032, 53544358 #### [facility] [address] [place] [address] Lyteson 06-01-2021 Anion gap [Moles/Vol] 15 mmol/L Normal 6-16 [facility] Comment on above: Performed By: #### 2 000115, 4510072, 7005857, 2491068, 23986639 #### [facility] [address] [place] [address] Chloride [Moles/Vol] 103 mmol/L Normal 101-111 [facility] Comment on above: Performed By: #### 2 971307, 2580101, 7622834, 9102146, 17521038 #### [facility] [address] [place] [address] CO2 [Moles/Vol] 19 mmol/L Low 21-31 [facility] Comment on above: Performed By: #### 2 706256, 7066244, 5930335, 0145109, 93600487 #### [facility] [address] [place] [address] Potassium [Moles/Vol] 3.9 mmol/L Normal 3.5-5.3 [facility] Comment on above: Performed By: #### 2 045481, 5268576, 7283239, 4338922, 34016276 #### [facility] [address] [place] [address] Sodium [Moles/Vol] 133 mmol/L Low 135-145 [facility] Comment on above: Performed By: #### 2 135170, 5314281, 8159349, 8350069, 22037365 #### [facility] [address] [place] [address] Anion gap [Moles/Vol] 18 mmol/L High 6-16 [facility] Comment on above: Performed By: #### 2 862276, 6314450, 2974967 #### [facility] [address] [place] [address] Chloride [Moles/Vol] 101 mmol/L Normal 101-111 [facility] Comment on above: Performed By: #### 2 901987, 9272133, 6937329 #### [facility] [address] [place] [address] CO2 [Moles/Vol] 17 mmol/L Low 21-31 [facility] Comment on above: Performed By: #### 2 210679, 2857231, 8330599 #### [facility] [address] [place] [address] Potassium [Moles/Vol] 3.5 mmol/L Normal 3.5-5.3 [facility] Comment on above: Performed By: #### 2 803119, 4465357, 0214658 #### [facility] [address] [place] [address] Sodium [Moles/Vol] 132 mmol/L Low 135-145 [facility] Comment on above: Performed By: #### 2 800204, 2076668, 9174437 #### [facility] [address] [place] [address] Anion gap [Moles/Vol] 25 mmol/L High 6-16 [facility] Comment on above: Performed By: #### 2 357838, 6544846, 9745930, 4339861, 72101582 #### [facility] [address] [place] [address] Chloride [Moles/Vol] 101 mmol/L Normal 101-111 [facility] Comment on above: Performed By: #### 2 248852, 5362154, 8699000, 0214373, 81668495 #### [facility] [address] [place] [address] CO2 [Moles/Vol] 10 mmol/L Abnormal 21-31 [facility] Comment on above: Result Comment: Crit ical Result S_CO2:10.0) Called to DR. ESPINO AT ER by NACHO CACERES and read back for confirmation at 06/01/2021 14:22:0 Performed By: #### 2 390733, 2558050, 4054564, 6668042, 03251008 #### [facility] [address] [place] [address] Potassium [Moles/Vol] 3.6 mmol/L Normal 3.5-5.3 [facility] Comment on above: Performed By: #### 2 753567, 9271784, 2059485, 0509414, 59868023 #### [facility] [address] [place] [address] Sodium [Moles/Vol] 132 mmol/L Low 135-145 [facility] Comment on above: Performed By: #### 2 094686, 9977315, 7907953, 6909047, 14597632 #### [facility] [address] [place] [address] Magnesiumon 06-01-2021 Magnesium [Mass/Vol] 1.9 mg/dL Normal 1.3-2.4 [facility] Comment on above: Performed By: #### 2 733949, 5692671, 2115948, 7474663, 32840702 #### [facility] [address] [place] [address] Magnesium [Mass/Vol] 2.1 mg/dL Normal 1.3-2.4 [facility] Comment on above: Performed By: #### 2 922471, 1697434, 3024648, 3299017, 29048595 #### [facility] [address] [place] [address] Monitor Recordon 06-01-2021 Monitor Record [id number] CD:127 Normal [facility] Phosphoruson 06-01-2021 Phosphate [Mass/Vol] 2.6 mg/dL Normal 1.9-4.6 [facility] Comment on above: Performed By: #### 2 961293, 1387234, 6646134, 4281709, 27286615 #### [facility] [address] [place] [address] Troponinon 06-01-2021 Troponin I.cardiac [Mass/Vol] 5.90 pg/mL Low 15.90-38.40 [facility] Comment on above: Result Comment: The 95% CI (Confidence Interval) PPV (Positive Predictive Value) for myocardial infarction in females is 38 pg/mL, in males 51 pg/mL. The results should be used in conjunction with clinical conditions of myocardial infarction. (Access High Sensitivity Troponin I Instructions For Use, Kamini Netseer, February 2018) Performed By: #### 2 489924, 3799922, 2987049, 0903223, 68226540 #### [facility] [address] [place] [address] U Drug Screenon 06-01-2021 Amphetamines Screen method >1000 ng/mL Ql (U) Negative Normal Negative [facility] Comment on above: Result Comment: Nega tive Cutoff: <1000 ng/mL Performed By: #### 2 429250, 9651347, 7341514, 4630864, 53797822 #### [facility] [address] [place] [address] Barbiturates Screen Ql (U) Negative Normal Negative [facility] Comment on above: Result Comment: Nega tive Cutoff: <200 ng/mL Performed By: #### 2 835937, 2666758, 2615477, 2572317, 25089543 #### [facility] [address] [place] [address] Benzodiazepines Ql (U) Negative Normal Negative [facility] Comment on above: Result Comment: Nega tive Cutoff: <200 ng/mL Performed By: #### 2 082119, 8729212, 0508255, 3204522, 70677574 #### [facility] [address] [place] [address] Cocaine Ql (U) Negative Normal Negative [facility] Comment on above: Result Comment: Nega tive Cutoff: <300 ng/mL Performed By: #### 2 660763, 2922917, 1612108, 6005249, 67762035 #### [facility] [address] [place] [address] Opiates Screen Ql (U) Negative Normal Negative [facility] Comment on above: Result Comment: Nega tive Cutoff: <300 ng/mL Performed By: #### 2 844060, 3754207, 1921390, 6793640, 49045303 #### [facility] [address] [place] [address] Phencyclidine Screen method >25 ng/mL Ql (U) Negative Normal Negative [facility] Comment on above: Result Comment: Nega tive Cutoff: <25 ng/mL These drug screen results are to be used for medical (i.e., treatment) purposes only. Unconfirmed drug screening results must not be used for non-medical purposes (e.g., employment testing, legal testing). Performed By: #### 2 553007, 7061177, 2199429, 9967453, 90420866 #### [facility] [address] [place] [address] Tetrahydrocannabinol Screen method >50 ng/mL Ql (U) Negative Normal Negative [facility] Comment on above: Result Comment: Nega tive Cutoff: <50 ng/mL Performed By: #### 2 315485, 6032912, 2030009, 0222917, 14694477 ####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 for ongoing care. If your symptoms become worse or you do not improve as expected and you are unable to reach your usual health care provider, you should return to the Emergency Department, we are available 24 hours a day. For those patients who have received Radiology results, the interpretation of your X-ray as given to you by our Urgent Care physician is only a preliminary report. The Radiologist will review your films and if there is a change in the diagnosis you will be notified by phone. Please make sure you have provided a working phone number so we can reach you if necessary. In the event that you had a lab culture while you were a patient in the Urgent Care, you will be notified by phone if there is a need to change your antibiotic. Please make sure you have provided a working phone number so we can reach you if necessary. [facility] has provided you with a complete list of medications post discharge. Please inform your air tank assembler/provider of your visit and for further instruction on these medications. Any specific questions regarding your chronic medications and dosages should be discussed with your primary care physician(s) and/or pharmacist. New Medications Printed Prescriptions Misc Prescription (Handicap sticker) Diagnosis: G57.92 Length of need 1 year. Refills: 0. Medications That Were Updated - Follow Below Instructions Printed Prescriptions Updated: esomeprazole (NexIUM 40 mg oral delayed release capsule) 1 cap(s) Oral 2 times a day. Refills: 0. Updated: sertraline (Zoloft 50 mg oral tablet) 1 tab(s) Oral every day. Refills: 0. Other Medications Updated: esomeprazole 40 Milligram. Updated: sertraline (Zoloft 50 mg oral tablet) 1 tab(s) Oral every day for 30 Days. Refills: 0. Medications to Continue That Have Not Changed Other Medications acetaminophen-oxycodone (Percocet 10/325) Oral every 6 hours. baclofen (baclofen 10 mg oral tablet) 1 tab(s) Oral 3 times a day. doxepin 75 Milligram Oral. gabapentin 800 Milligram Oral. topiramate 50 Milligram Oral. Visit Information Allergies: Substance Reaction Symptoms Type Comments No known allergies Drug Vital Signs: Vitals and Measurements this Visit (last charted value for your 08/07/2020 visit) No vitals and measurements documented Problems List: Problem Onset Comments No Problems found Patient Education Viruses or Bacteria What?s got you sick? Antibiotics only treat bacterial infections. Viral illnesses cannot be treated with antibiotics. When an antibiotic is not prescribed, ask your healthcare professional for tips on how to relieve symptoms and feel better. Usual Cause Illness Viruses Bacteria Antibiotic Needed Cold/Runny Nose NO Bronchitis/Chest Cold (in otherwise healthy children and adults) NO Whooping Cough Yes Flu NO Strep Throat Yes Sore Throat (except strep) NO Fluid in the middle ear (otitis media with effusion) NO Urinary Tract Infection Yes Antibiotics Aren?t Always the Answer www.cdc.gov/getsmart GET SMART Know When Antibiotics Work U.S. Department of Health and Human Services Centers for Disease Control and Prevention March 2014 Normal [facility] Hepatitis B Surface Abon Hepatitis B Surface Ab Interp Non-Reactive Normal NON REACT [facility] Hepatitis B Surface Agon Hepatitis B Surface Ag Interp Non-Reactive Normal NON REACT [facility] Hepatitis B Surface Antibody on 01-25-2020 HBV surface Ab (S) [Titer] Non-Reactive NON REACT [place], [place] Hepatitis B Surface Antigeno n 01-25-2020 Hep B S Ag Interp Non-Reactive NON REACT [place], [place] Hepatitis C Antibodyon 01-24 Hepatitis C Antibody Interp REACTIVE Abnormal NON REACT [facility] Hep C Ab Interp REACTIVE Abnormal NON REACT [place], [place] Interpretation and review of laboratory results Abnormal [place], [place] HISTORY PHYSICALon 9 HISTORY PHYSICAL HNO ID: [id number] Author: Courtney Ramsey Service: ? 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 The patient seen for psychiatric diagnostic evaluation. Referred by Dusty Rosario MD (Neurology). This consultation was shared with the referral source via the [facility] electronic medical record. The patient is wanting to get back on opioids and get his life back. Chief complaints: Constant, pinching, zapping generalized pain which is worse in left shoulder and left foot. Aggravating factors: heat, any movement. Alleviating factors: cold, opioids, muscle relaxants, eating calms him. Current pain level is 9-10/10. Present Illness: 05/06/19 Dusty Rosario MD (Neurology): Leo Hussein is a 48 year old male who presents for evaluation of chronic pain disorder secondary to workplace injury (electrocution by power lines) 11 years ago. His neurological examination is pertinent for diminished sensation in his pattern of injury without motor or deep tendon reflexes abnormalities. Available diagnostic data is significant for PDMP reports of chronic pain medication refills that are consistent with patient's report. Unfortunately, Mr. Hussein's local providers are no longer able to provide medication for his chronic pain, and he is searching to find a new provider. Neurologically, he is unchanged and would not benefit from any further workup currently unless advised by Pain Management. Recommendations: - Referral to Chronic Pain Management - Do not see a need currently for EMG/NCS as neurological symptoms are stable/unchanged since initial injury Per the patient, his neurologist, Dr. Dueñas prescribed all his medications until he was charged with fraud. Now he is looking for a new physician to prescribe. Current Medications: Current Outpatient Medications Medication Sig - oxyCODONE 30 mg tab ER 12hr Take 30 mg by mouth. - gabapentin (NEURONTIN) 800 mg tablet Take 800 mg by mouth three times daily. - baclofen (LIORESAL) 10 mg tablet Take 10 mg by mouth four times daily. - doxepin capsule 75 mg Take 75 mg by mouth daily at bedtime. - esomeprazole (NEXIUM) 40 mg capsule Take 40 mg by mouth twice daily before meals. - rOPINIRole (REQUIP) 2 mg tablet Take 2 mg by mouth daily at bedtime. - topiramate (TOPAMAX) 50 mg tablet Take 50 mg by mouth three times daily. No current facility-administered medications for this visit. [facility] website checked and validated. All prescriptions have been APPROPRIATELY filled. No suspicious activity was identified. 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 Pain Disability Index score is 67/70, suggesting profound functional impairment. Time spent reclining is ~18 hours/day (includes time in bed, recliner, sofa, ottoman, etc.). Emotional Symptoms include depression, occasional crying spells, anxiety, frustration, irritability, and anger. He denies suicidal ideation, plan or intent. On the Depression, Anxiety, Stress Scale, scored 28 on depression, suggesting extremely severe depression, and 20 on anxiety, suggesting extremely severe anxiety. He has flashbacks and nightmares of the accident. . Non medical stresses include relationship conflicts with girlfriend. Family involvement: He remains independents. Financial Status: He receives $1,300/month in [place]. Litigation is settled; nothing pending. REVIEW OF SYSTEMS: ROS: Patient denies skin rashes, tinnitus, cough, fever, dizziness, fainting, orthostasis, or visual changes. No shortness of breath, chest pain, nausea, vomiting or diarrhea. Denies excessive bleeding or bruising. Allergies: ALLERGIES Allergies not on file No past medical history on file. No past surgical history on file. Psychiatric illness: Previous diagnoses: He doesn't remember if he was diagnosed with depression. Out-Patient Therapy: He was in counseling for 8 years which helped at times. No presently in counseling. . Psychiatric hospital admissions:Denied Suicide attempts: Denied Medications tried: Zoloft Substance use: Nicotine: Never Alcohol: Never much of a drinker, at most 6 pack/month Recreational drugs: Never Prescription medications: Opioids No family history on file. Psychiatric illness: Uncle with chemical imbalance Substance use disorders: Denied Developmental History: He was reared as the youngest of 5 by both parents. Nurture was good. Discipline was good. Abuse, somatization, and serious disciplinary problems were denied. There were no major childhood traumatic events.Socialization was good. There was no history of difficulties with authorities. He dropped out in the 11th grade and got his GED. 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 No history. He worked for the [employer] for 15 years. Never , no children. He was with his girlfriend for 4-5 months prior to their separation. She says they can get back together is he gest back on his medications. Mental status: He was fully cooperative. Eye contact was good. Affect was hyper. Speech was rapid and pressured. Thoughts were logical and relevant without delusional thinking or hallucinations. Somatic preoccupation was marked. Judgment and insight were fair. Attention span and concentration appeared normal. The patient was oriented to time, place and person. Presidential recall was Trump, Obama, Les. Spelled WORLD forward and backward. Could only repeat 4 digits and reverse 2. Knew the capitals of the [place] and [place], but not [place]. Knew what direction [place] is from the [facility]. PHYSICAL EXAMINATION: BP 137/105 (BP Site: Left Arm, BP Position: Sitting, BP Cuff Size: Large Adult) Pulse 108 Ht 165.1 cm (5' 5 ) Wt 104.3 kg (230 lb) BMI 38.27 kg/m? Impressions: Pain disorder associated with psychological and physical factors Neuropathic pain, s/p electrocution Chronic pain syndrome Chronic opioid use Possible opioid induced hyperalgesia Plan: Treatment in the Chronic Pain Neuro-Rehabilitation Intensive Out-patient Program was recommended which he refused stating the only thing that helps are opioids. Discussed with patient the use of chronic opioid as it relates to chronic benign pain. Patient was advised that research does not support retirement use of opioids in chronic pain and I do not recommended opioids for retirement use. Would recommend discussion with prescribing provider to consider reduction/wean/eliminat ion of this type medication. Start time: 11:20 am End time: 12:00 pm Time spent on counseling, medication management, education and review. All patients questions regarding above conditions and coordination of care were addressed. Courtney Ramsey DNP, RN, METER/RELAY CRAFTSMAN.[employer]ING TEACHER Normal [facility] CNOVon 05-06-2019 CNOV Office Visit (NECC9) LEO HUSSEIN ([id number]) 1970 M Date Time Provider Department 05/06/19 8:00 AM DUSTY ROSARIO (RES) NECC9 During your visit today, we recorded the following information about you: Temperature Pulse Blood pressure Weight 98.2 degrees 91/minute 120/103 104 kg Dusty Rosario MD 05/06/2019 9:43 AM Addendum GENERAL NEUROLOGY CLINIC SERVICE DATE: May 06, 2019 SERVICE TIME: 08 REFERRING PHYSICIAN: Law Champagne Subjective REASON FOR EVALUATION: Pain HPI/CHIEF COMPLAINT: This is Leo Hussein a 48 year old right handed male whom is referred to Neurology for evaluation of chronic pain secondary to electrocution injury at work 11 years ago. Mr. Hussein was unfortunately electrocuted by a power line while up in a tree wearing steel toed boots, and he report suffering electrical damage throughout but predominantly to his RUE, R face, and LLE. At the time of injury, he reportedly had nerve conduction studies that revealed severe sensory nerve damage. Since this injury, he has been on disability and receiving chronic opioid therapy from Dr. Champagne in the [facility]. However, recently, his provider has had to stop practicing and he has received only minimal therapy from other providers. He describes his pain as a tingling/ electrical type sensation, and is able to maintain functionality/independe nce by using the medications he has chronically been on for years. He denies any illicit substance abuse (prior history), but fears having to revert to these forms if he does not find a chronic pain provider. He denies any change in his neurological symptoms such as new weakness, different character of pain, visual changes. Recent opioid fills verified by PDMP report: 04/28/19- Oxycodone 30 mg 35 tabs (Tiara) 04/13/19- Oxycodone 30 mg 60 tabs ([place]) 03/14/19- Oxycodone 30 120 tabs (Ciersezwski) 02/26/19- Oxycodone 30 56 tabs (Champagne) 01/28/19- Oxycodone 30 120 tabs (Champagne) 12/29/18- Oxycodone 30 120 tabs (Champagne) 11/29/18 Oxycodone 30 120 tabs (Champagne) FUNCTIONAL STATUS: Independent PAST MEDICAL HISTORY: Chart reviewed, pertinent PMH: - Chronic pain - Migraines PAST SURGICAL HISTORY: Chart reviewed, pertinent PSH: - Cholecystectomy 2015 - L rotator cuff surgery 2016 FAMILY HISTORY: Chart reviewed, pertinent family history: noncontributory SOCIAL HISTORY: Chart reviewed, pertinent social history: - Lives in [place], with roommate - No children, never - Former substance abuse (THC, cocaine) - 6 pack/month beer; no tobacco products - [employer]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 gabapentin (NEURONTIN) 800 mg tablet Take 800 mg by mouth three times daily. baclofen (LIORESAL) 10 mg tablet Take 10 mg by mouth three times daily. doxepin capsule 75 mg Take 75 mg by mouth daily at bedtime. esomeprazole (NEXIUM) 40 mg capsule Take 40 mg by mouth twice daily before meals. rOPINIRole (REQUIP) 2 mg tablet Take 2 mg by mouth daily at bedtime. topiramate (TOPAMAX) 50 mg tablet Take 50 mg by mouth three times daily. ALLERGIES: no known allergies COMPLETE REVIEW OF SYSTEMS: GENERAL: stable weight, more irritability, mood swings HEENT: chronic headaches, no vision changes NECK: Negative for stiffness, lumps or significant neck swelling RESPIRATORY: Negative for cough, wheezing or respiratory distress. CARDIOVASCULAR: Negative for chest pain, syncope, lightheadness or heart racing. GI: Negative for abdominal discomfort, blood in stools or black stools or change in bowel habits : No history of dysuria, frequency or incontinence MUSCULOSKELETAL: Negative for joint pain or swelling, back pain or muscle pain. SKIN: Negative for lesions, rash, and itching. NEURO: See HPI Objective PHYSICAL EXAM: Vital Signs: BP 120/103 Pulse 91 Temp 36.8 ?C (98.2 ?F) Wt 104 kg (229 lb 4.8 oz) SpO2 97% General: No acute distress. Pleasant HEENT: Atraumatic. No erythema or discharge CV: Normal rate and rhythm. Normotensive Resp: No respiratory distress, no accessory muscle usage Abdomen: Soft, nontender, nondistended abdomen. Extremities: No pedal edema b/l. Noncyanotic Neurological Examination: ? Mental Status: Alert and Oriented to Place, Person, Time and Situation and Patient follows commands.. ? Language: Is intact to Comprehension and Fluency ? Cranial Nerves: ? CNII: Visual lawrence full to confrontation, No APD noted on exam ? CNIII, IV, : Pupils equal, round and reactive to light, full extraoccular movements, without nystagmus ? CN V: Facial sensation intact bilaterally to fine touch and pinprick ? CN VII: Facial muscles symmetric and strong ? CN VIII: Hears finger rub well bilaterally ? CN IX: Gag Reflex Not examined ? CN X: Palate elevates symmetrically ? CN XI: Full R shoulder shrug strength, L shoulder limited due to shoulder pain (4+/5) ? CN XII: Tongue protrusion full and midline ? Non-Dilated Fundiscopic Examination: Deferred Examination ? Motor Exam: Tone: Normal Tone noted in all extremities Bulk: Normal bulk noted in all muscles tested. Inspection: Normal, no fasciculations or tremors noted. No Pronator drift Power: MUSCLES - Upper Extremity RIGHT LEFT Deltoid 5/5 5/5 Biceps 5/5 5/5 Triceps 5/5 5/5 Wrist Extension 5/5 5/5 Wrist Flexion 5/5 5/5 First Aid Attendant Strength 5/5 5/5 MUSCLES - Lower Extremity RIGHT LEFT Hip Flexion 5/5 5/5 Hip Extension 5/5 5/5 BiFem (Knee Flex) 5/5 5/5 Quads (Knee Ext) 5/5 5/5 Gastroc (Plantflx) 5/5 5/5 TibAnt (Dorsiflx) 5/5 5/5 ? Sensory Examination Sensation is globally reduced but most impaired to pinprick and vibration at the RUE, R face, LLE. There is splitting to vibration sensation at the R forehead (diminished) compared to the L forehead REFLEXES RIGHT LEFT Bicep 2/4 2/4 BrRad 2/4 2/4 Knee 2/4 2/4 Ankle 2/4 2/4 Plantar Response Downward response Downward response ? Coordination: Finger-to- nose-finger intact bilaterally. ? Gait: Patient's gait is normal, but heel, toe, and tandem gait are marked by increased swaying without following in a seemingly antalgic pattern ? 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 His neurological examination is pertinent for diminished sensation in his pattern of injury without motor or deep tendon reflexes abnormalities. Available diagnostic data is significant for PDMP reports of chronic pain medication refills that are consistent with patient's report. Unfortunately, Mr. Hussein's local providers are no longer able to provide medication for his chronic pain, and he is searching to find a new provider. Neurologically, he is unchanged and would not benefit from any further workup currently unless advised by Pain Management. Recommendations: - Referral to Chronic Pain Management - Do not see a need currently for EMG/NCS as neurological symptoms are stable/unchanged since initial injury SIGNATURE: Dusty Rosario MD PATIENT NAME: Leo Hussein DATE: May 06, 2019 TIME: 08 PAGER/CONTACT #: [id number] I have seen and evaluated the patient and discussed the case with the resident physician. I agree with the assessment and plan as documented in the resident?s note. Patient referred to chronic pain clinic for management of his chronic pain medications. He does not need any further work up. Radha Goddard MD [facility] Adult General Neurology [address] [place] [address]/[place] [address] Dusty Rosario MD 05/06/2019 9:13 AM Signed 1) Referral to chronic pain placed, schedulers will assist with scheduling 2) No further neurological testing needed currently Referring Provider: LAW CHAMPAGNE [[id number]] Allergies As of Date: 05/06/2019 (Not on File) Date Reviewed: Never Reviewed Primary Visit Diagnosis:Chronic pain syndrome [G89.4] Order(s):CONSULT TO CHRONIC PAIN NON-PAIN ANESTHESIA ([facility]) [[id number]] Order #: [id number]: 1 FUTURE Prescriptions as of 05/06/2019 Sig: OXYCODONE ER 30 MG TABLET,CRU* Take 30 mg by mouth. GABAPENTIN 800 MG TABLET Take 800 mg by mouth three ti* BACLOFEN 10 MG TABLET Take 10 mg by mouth three nick* DOXEPIN 75 MG CAPSULE Take 75 mg by mouth daily at * ESOMEPRAZOLE MAGNESIUM 40 MG * Take 40 mg by mouth twice zeb* ROPINIROLE 2 MG TABLET Take 2 mg by mouth daily at b* TOPIRAMATE 50 MG TABLET Take 50 mg by mouth three nick* Problem List As Of Date: 05/06/2019 (None) Other instructions from your clinician: 1) Referral to chronic pain placed, schedulers will assist with scheduling 2) No further neurological testing needed currently Disposition: Return if symptoms worsen or fail to improve. Follow-up and Disposition History Recorded Encounter Status:Closed by RADHA GODDARD [facility]06/[facility] 05-06-2019 PROGRESS HNO ID: [id number] Author: Dusty Rosario Service: ? Author Type: Resident Type: Progress Notes Filed: 05/06/2019 10:03 AM Note Text: GENERAL NEUROLOGY CLINIC SERVICE DATE: May 06, 2019 SERVICE TIME: 08 REFERRING PHYSICIAN: Law Champagne Subjective REASON FOR EVALUATION: Pain HPI/CHIEF COMPLAINT: This is Leo Hussein a 48 year old right handed male whom is referred to Neurology for evaluation of chronic pain secondary to electrocution injury at work 11 years ago. Mr. Hussein was unfortunately electrocuted by a power line while up in a tree wearing steel toed boots, and he report suffering electrical damage throughout but predominantly to his RUE, R face, and LLE. At the time of injury, he reportedly had nerve conduction studies that revealed severe sensory nerve damage. Since this injury, he has been on disability and receiving chronic opioid therapy from Dr. Champagne in the [facility]. However, recently, his provider has had to stop practicing and he has received only minimal therapy from other providers. He describes his pain as a tingling/ electrical type sensation, and is able to maintain functionality/independe nce by using the medications he has chronically been on for years. He denies any illicit substance abuse (prior history), but fears having to revert to these forms if he does not find a chronic pain provider. He denies any change in his neurological symptoms such as new weakness, different character of pain, visual changes. Recent opioid fills verified by PDMP report: 04/28/19- Oxycodone 30 mg 35 tabs (Tiara) 04/13/19- Oxycodone 30 mg 60 tabs ([place]) 03/14/19- Oxycodone 30 120 tabs (Ciersezwski) 02/26/19- Oxycodone 30 56 tabs (Champagne) 01/28/19- Oxycodone 30 120 tabs (Champagne) 12/29/18- Oxycodone 30 120 tabs (Champagne) 11/29/18 Oxycodone 30 120 tabs (Champagne) FUNCTIONAL STATUS: Independent PAST MEDICAL HISTORY: Chart reviewed, pertinent PMH: - Chronic pain - Migraines PAST SURGICAL HISTORY: Chart reviewed, pertinent PSH: - Cholecystectomy 2015 - L rotator cuff surgery 2015 FAMILY HISTORY: Chart reviewed, pertinent family history: noncontributory SOCIAL HISTORY: Chart reviewed, pertinent social history: - Lives in [place], with roommate - No children, never - Former substance abuse (THC, cocaine) - 6 pack/month beer; no tobacco products - [employer]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 gabapentin (NEURONTIN) 800 mg tablet Take 800 mg by mouth three times daily. baclofen (LIORESAL) 10 mg tablet Take 10 mg by mouth three times daily. doxepin capsule 75 mg Take 75 mg by mouth daily at bedtime. esomeprazole (NEXIUM) 40 mg capsule Take 40 mg by mouth twice daily before meals. rOPINIRole (REQUIP) 2 mg tablet Take 2 mg by mouth daily at bedtime. topiramate (TOPAMAX) 50 mg tablet Take 50 mg by mouth three times daily. ALLERGIES: no known allergies COMPLETE REVIEW OF SYSTEMS: GENERAL: stable weight, more irritability, mood swings HEENT: chronic headaches, no vision changes NECK: Negative for stiffness, lumps or significant neck swelling RESPIRATORY: Negative for cough, wheezing or respiratory distress. CARDIOVASCULAR: Negative for chest pain, syncope, lightheadness or heart racing. GI: Negative for abdominal discomfort, blood in stools or black stools or change in bowel habits : No history of dysuria, frequency or incontinence MUSCULOSKELETAL: Negative for joint pain or swelling, back pain or muscle pain. SKIN: Negative for lesions, rash, and itching. NEURO: See HPI Objective PHYSICAL EXAM: Vital Signs: BP 120/103 Pulse 91 Temp 36.8 ?C (98.2 ?F) Wt 104 kg (229 lb 4.8 oz) SpO2 97% General: No acute distress. Pleasant HEENT: Atraumatic. No erythema or discharge CV: Normal rate and rhythm. Normotensive Resp: No respiratory distress, no accessory muscle usage Abdomen: Soft, nontender, nondistended abdomen. Extremities: No pedal edema b/l. Noncyanotic Neurological Examination: ? Mental Status: Alert and Oriented to Place, Person, Time and Situation and Patient follows commands.. ? Language: Is intact to Comprehension and Fluency ? Cranial Nerves: ? CNII: Visual lawrence full to confrontation, No APD noted on exam ? CNIII, IV, : Pupils equal, round and reactive to light, full extraoccular movements, without nystagmus ? CN V: Facial sensation intact bilaterally to fine touch and pinprick ? CN VII: Facial muscles symmetric and strong ? CN VIII: Hears finger rub well bilaterally ? CN IX: Gag Reflex Not examined ? CN X: Palate elevates symmetrically ? CN XI: Full R shoulder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 cooperative, approp. affect, good judgement Lab Results WBC: 10 E9/L (06/01/21 09:13:00) RBC: 5.4 E12/L (06/01/21 09:13:00) HGB: 17.6 gm/dL High (06/01/21 09:13:00) Hct: 50.8 % High (06/01/21:13:00) MCV: 93.2 fL (06/01/21 09:13:00) MCH: 32.2 pg (06/01/21:13:00) MCHC: 34.6 gm/dL (06/01/21 09:13:00) RDW: 13.2 % (06/01/21 09:13:00) Platelet: 225 E9/L (06/01/21:13:00) MPV: 8.2 fL (06/01/21:13:00) Neutro Auto: 69.2 % (06/01/21:13:00) Lymph Auto: 22.7 % (06/01/21:13:00) Ponce Auto: 6.9 % (06/01/21:13:00) Eos Auto: 0.3 % (06/01/21:13:00) Basophil Auto: 0.9 % (06/01/21:13:00) Neutro Absolute: 6.9 E9/L (06/01/21::) Lymph Absolute: 2.3 E9/L (06/01/21:13:00) Ponce Absolute: 0.7 E9/L (06/01/21:13:00) Eos Absolute: 0 E9/L (06/01/21::00) Basophil Absolute: 0.1 E9/L (06/01/21:13:00) D-Dimer: 701 ng/mL FEU Critical (06/01/21 09:13:00) Glucose Lvl: 431 mg/dL High (06/01/21:13:00) BUN: 15 mg/dL (06/01/21:13:00) Creatinine: 1.2 mg/dL (06/01/21:13:00) eGFR: >60 (06/01/21::00) eGFR AA: >60 (06/01/21:13:00) BUN/Creat Ratio: 12 (06/01/21:13:00) Sodium Lvl: 129 mmol/L Low (06/01/21:13:00) Potassium Lvl: 3.4 mmol/L Low (06/01/21:13:00) Chloride: 92 mmol/L Low (06/01/21:13:00) CO2: 10 mmol/L Critical (06/01/21 09:13:00) AGAP: 30 mEq/L High (06/01/21 09:13:00) Calcium Lvl: 9.3 mg/dL (06/01/21 09:13:00) Alk Phos: 68 Int._Unit/L (06/01/21 09:13:00) ALT: 25 Int._Unit/L (06/01/21 09:13:00) AST: 21 Int._Unit/L (06/01/21 09:13:00) Total Protein: 8.6 gm/dL High (06/01/21:13:00) Albumin Lvl: 4.5 gm/dL (06/01/21 09:13:00) Globulin: 4.1 gm/dL High (06/01/21 09:13:00) A/G Ratio: 1.1 (06/01/21::00) Bili Total: 1.8 mg/dL High (06/01/21 09:13:00) Bili Direct: 0.2 mg/dL (06/01/21 09:13:00) Bili Indirect: 1.6 mg/dL High (06/01/21 09:13:00) Lipase Lvl: 35 unit/L (06/01/21 09:13:00) Lactic Acid Lvl: 2 mmol/L (06/01/21 09:13:00) Magnesium: 2.1 mg/dL (06/01/21 09:13:00) CRP: 1.1 mg/dL (06/01/21 09:13:00) LDH: 156 Int._Unit/L (06/01/21 09:13:00) Troponin: 5.9 pg/mL Low (06/01/21:13:00) Beta HB Qnt: >7.76 High (06/01/21 09:13:00) UA Spec Desc: Clean Catch (06/01/21 10:22:00) UA Color: Yellow2 (06/01/21 10:22:00) UA Clarity: Clear2 (06/01/21 10:22:00) UA Spec Grav: >=1.030 (06/01/21 10:22:00) UA pH: 5.5 (06/01/21 10:22:00) UA Protein: NEGATIVE1 (06/01/21 10:22:00) UA Glucose: 3+ Abnormal (06/01/21 10:22:00) UA Ketones: 3+ Abnormal (06/01/21 10:22:00) UA Bili: 1+ Abnormal (06/01/21 10:22:00) UA Blood: Trace2 Abnormal (06/01/21 10:22:00) UA Nitrite: NEGATIVE1 (06/01/21 10:22:00) UA Urobilinogen: 0.2 (06/01/21 10:22:00) UA Leuk Est: NEGATIVE1 (06/01/21 10:22:00) UA RBC: 0-3 (06/01/21 10:22:00) UA Squam Epithelial: 0-2 (06/01/21 10:22:00) (more content not included)... [facility] Comment on above: Result Comment: Elec tronically Signed By: Jocelyn VALENCIA\.br\Date and Time Signed: 06/03/21 16:45 EST\.br\Electronically Co-Signed By: Sal DUEÑAS MD\.br\Date and Time Co-Signed: 06/05/21 07:16 EST Clinical Note 06-02-2021 Note Date & Type Note Facility 06-02-2021 Note Jocelyn [employer] rounded wi th patient earlier. CRM stopped into patients room, patient is alert and participates in plan of care. Patient lives at home with a friend. Patient on insulin gtt and here for DKA. Insulin cost at Health system no cost - CRM informed hospitalist. CRM discussed with patient HH RN - patient is not homebound. CRM discussed paramedicine - patient will think about it. Insurance information, PCP and DME verified. Medicare Rights Form discussed with and signed by patient. Original given to patient. Contact information provided. Patient denies any further discharge needs/concerns at this time. Anticipated discharge 06/04/2021. CRM to follow. [facility] Comment on above: Result Comment: Elec tronically Signed By: Aniyah SPRAGUE, Dunia Graham\.br\Date and Time Signed: 06/02/21 12:17 EST Evaluation note Note Date & Type Note Facility Evaluation note [facility] Evaluation note Note Date & Type Note Facility Evaluation note Diagnosis Type 2 diabetes mellitus with hyperglycemia, without long-term current use of insulin (CMS/HCC)- Primary Vitamin D deficiency Encounter for dietary consultation Class 1 obesity due to excess calories with serious comorbidity and body mass index (BMI) of 33.0 to 33.9 in adult Primary hypertension (CMS/HCC) Unspecified essential hypertension Weight gain Other symptoms concerning nutrition, metabolism, and development documented in this encounter [facility] Evaluation note Note Date & Type Note Facility Evaluation note Diagnosis Essential (primary) hypertension (CMS/HCC) Unspecified essential hypertension documented in this encounter [facility] Summary Purpose Family History No Family History Records FoundNo Family History Records FoundNo Family History Records FoundNo Family History Records FoundNo Family History Records FoundNo Family History Records FoundNo Family History Records Found Advance Directives Documents on File Type Date Recorded Patient 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 Generation Project 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 Expl anation Advance Directives and Living Will Power of Nurse College Advance Directive Response Recorded Date/ Time Advance Directives No March 5:11pm Additional Source Comments (unrecognized sect ion and content) No Status Records FoundNo Status Records FoundNo Status Records FoundNo Status Records FoundNo Status Records FoundNo Status Records FoundNo Status Records Found INFORMATION SOURCE (unrecogn ized section and content) DATE CREATED AUTHOR 06/24/2019 [facility] DATE CREATED AUTHOR AUTHOR'S ORGANIZ ATION 02/10/2020 [facility] DATE CREATED AUTHOR AUTHOR'S ORGANIZ ATION 09/08/2020 [facility] DATE CREATED AUTHOR AUTHOR'S ORGANIZ ATION 05/23/2022 [facility] DATE CREATED AUTHOR AUTHOR'S ORGANIZ ATION 07/11/2022 [facility] DATE CREATED AUTHOR AUTHOR'S ORGANIZ ATION 11/03/2022 [facility] DATE CREATED AUTHOR AUTHOR'S ORGANIZ ATION 09/01/2024 [facility] EPIC Care Teams (unrecognized sec tion and content) Team Status: Inactive Member Role Status Dates Judd Hernandez MD Attending Provider Active Media Production Support Manager Relationship Specialty Start Date End Date Nathaniel Allen MD [address] [place] [phone] PCP - General Family Medicine 12/26/22 Marsha Chatman MD [address] [place] [id number] Referring Physician Family Medicine 12/26/22 Media Production Support Manager Relationship Specialty Start Date End Date Nathaniel Allen MD [address] [place] [phone] PCP - General Family Medicine 12/26/22 Marsha Chatman MD [address] [place] [id number] Referring Physician Family Medicine 12/26/22 Media Production Support Manager Relationship Specialty Start Date End Date Nathaniel Allen MD [address] [place] [phone] PCP - General Family Medicine 12/26/22 Marsha Chatman MD [address] [place] [phone] Referring Physician Family Medicine 12/26/22 Goals (unrecognized section and content) Goals may be documented in a n alternate section Reason for Visit (unrecogniz ed section and content) Reason Comments Diabetes Follow-up Reason Comments Med Refill FOR RECORDS PERTAINING TO PATIENTS WHO ARE OR HAVE BEEN ENROLLED IN A CHEMICAL DEPENDENCY/SUBSTANCEABUSE PROGRAM, SOME INFORMATION MAY BE OMITTED. This clinical summary was aggregated from multiple sources. Caution should be exercised in using it in the provision of clinical care. This summary normalizes information from multiple sources, and as a consequence, information in this document may materially change the coding, format and clinical context of patient data. In addition, data may be omitted in some cases. CLINICAL DECISIONS SHOULD BE BASED ON THE PRIMARY CLINICAL RECORDS. [facility]. provides no warranty or guarantee of the accuracy or completeness of information in this document.
[2025-01-11] MEDS: IPRATROPIUM/ALBUTEROL SULFATE 3 ML AMPUL.NEB IH (18:37)
[2025-01-11] MEDS: HYDROXYZINE PAMOATE 25 MG CAPSULE PO (18:55)
--- NOTE | 2025-01-11 19:11 | PC.NURSE ---
i walked into this patient's room to find this patient sitting upright awake and alert talking a friend. during my introduction to this patient this patient was making jokes with me. i updated this patient about new orders for blood draw and medication. this patient was informed about the verification from [facility]. this patient voices no concerns, needs and shows no signs of distress
[2025-01-11 19:17] LABS: Basophils Absolute Auto 0.1 10^3/uL (0.0-0.1); Basophils Percent Auto 0.7 % (0.2-2.0); Eosinophils Absolute Auto 0.1 10^3/uL (0.0-0.7); Eosinophils Percent Auto 0.4 % (0.9-7.0); Hematocrit 49.2 % (42.0-54.0); Hemoglobin 18.1 g/dL (14.0-18.0); Immature Granulocytes Abs Auto 0.04 10^3/uL (0.00-0.03); Immature Granulocytes Pct Auto 0.3 % (0.0-0.5); Lymphocytes Absolute Auto 3.3 10^3/uL (1.2-3.8); Lymphocytes Percent Auto 26.6 % (20.5-60.0); Mean Corpuscular HGB Conc 36.8 g/dL (29.9-35.2); Mean Corpuscular Hemoglobin 33.4 pg (25.9-34.0); Mean Corpuscular Volume 90.8 fL (80.0-94.0); Mean Platelet Volume 8.9 fL (9.5-13.5); Monocytes Absolute Auto 1.2 10^3/uL (0.3-0.8); Monocytes Percent Auto 9.4 % (1.7-12.0); Neutrophils Absolute Auto 7.7 10^3/uL (1.4-6.5); Neutrophils Percent Auto 62.6 % (43.0-75.0); Platelet Count 281 10^3/uL (150-450); Red Blood Count 5.42 10^6/uL (4.70-6.10); Red Cell Distribution Width 12.1 % (11.0-15.0); White Blood Count 12.2 10^3/uL (4.0-11.0)
[2025-01-11] MEDS: DIAZEPAM 10 MG/2 ML SYRINGE 5 MG IV (19:19)
--- NOTE | 2025-01-11 19:40 | PC.NURSE ---
this patient awake and alert sitting upright on the bed looking at his cell phone. this patient voices no concerns or needs and shows no signs of distress
[2025-01-11 20:09] LABS: INR 1.03; Prothrombin Time 10.9 sec (9.0-11.6)
[2025-01-11 20:13] LABS: Alanine Aminotransferase 21 U/L (16-63); Albumin Globulin Ratio 1.3; Albumin Level 4.4 g/dL (3.4-5.0); Alkaline Phosphatase 50 U/L (46-116); Aspartate Amino Transferase 15 U/L (15-37); BUN Creatinine Ratio 19.6; Bilirubin Total 0.9 mg/dL (0.2-1.0); Calcium 9.3 mg/dL (8.5-10.1); Carbon Dioxide 17.7 mmol/L (21.0-32.0); Chloride 105 mmol/L (98-107); Estimated GFR (African America 52 (>=60 mL/min/1.73m^2); Estimated GFR (Non-African Ame 42 (>=60 mL/min/1.73m^2); Globulin 3.4 g/dL; Glucose 134 mg/dL (74-106); Potassium 3.7 mmol/L (3.5-5.1); Sodium 142 mmol/L (136-145); Total Protein 7.8 g/dL (6.4-8.2)
[2025-01-11 20:20] LABS: Troponin I High Sensitivity <4.0 pg/mL (4.0-76.1)
[2025-01-11] MEDS: 0.9 % SODIUM CHLORIDE 1,000 ML 1000 ML IV (20:31)
--- NOTE | 2025-01-11 21:42 | PC.NURSE ---
i gave this patient verbal and written discharge orders and this patient voices yes to understanding these. at time of discharge this patient voices no concerns, or needs and shows no signs of distress
== END 2025-01-11 21:41 | disposition home or self-care (01) ==
PROVIDERS: Physician Assistant; Emergency Provider Emergency Medicine; PCP Nurse Practitioner Family
DX: N17.9 Acute kidney failure, unspecified (principal); F43.9 Reaction to severe stress, unspecified; Z79.899 Other long term (current) drug therapy
CPT/HCPCS: 36415; 71046; 80053; 82948; 83880; 84484; 85025; 85610; 93005; 94640; 96374; 99285; J3360; Q0177

== ENCOUNTER 2025-01-30 16:24 | Outpatient (OUT) | payer OTHER, SELFPAY ==
[2025-01-30 16:56] LABS: Alanine Aminotransferase 21 U/L (16-63); Albumin Globulin Ratio 1.2; Albumin Level 4.0 g/dL (3.4-5.0); Alkaline Phosphatase 108 U/L (46-116); Anion Gap 15.4; Aspartate Amino Transferase 10 U/L (15-37); Blood Urea Nitrogen 22.0 mg/dL (7.0-18.0); Calcium 8.5 mg/dL (8.5-10.1); Carbon Dioxide 23.2 mmol/L (21.0-32.0); Chloride 104 mmol/L (98-107); Estimated GFR (African America >60 (>=60 mL/min/1.73m^2); Estimated GFR (Non-African Ame >60 (>=60 mL/min/1.73m^2); Globulin 3.4 g/dL; Glucose 119 mg/dL (74-106); Potassium 3.6 mmol/L (3.5-5.1); Sodium 139 mmol/L (136-145); Total Protein 7.4 g/dL (6.4-8.2)
== END 2025-01-30 16:25 | disposition home or self-care (01) ==
LOC: LAB 16:25
PROVIDERS: PCP Nurse Practitioner Family; Visit Provider Nurse Practitioner Family
DX: E86.0 Dehydration (principal)
CPT/HCPCS: 36415; 80053